=== PATIENT | female | born 1955 | race African-American/Black ===

== ENCOUNTER 2017-07-29 12:59 | Inpatient (IN) | payer MEDICARE, OTHER ==
[~2017-07-29] VITALS: Ht 160 cm; Wt 79.8 kg
[~2017-07-29 12:59] MED LIST: AMBIEN10 M1 ORAL; CARAFATE1 G1 ORAL; DEPAKOTE500 MG PO; DILAUDID4 MG ORAL; FLORANEX GRANU1 EACH PO; GABAPENTIN300 MG ORAL; LAMICTAL25 MG ORAL; LEVOTHYROXINE125 MCG ORAL; METRONIDAZOLE250 MG ORAL; NEXIUM40 MG ORAL; NORCO 5-325 TA1 EACH ORAL; PERCOCET 10-321 EAC1 PO; PROTONIX40 MG ORAL; QUETIAPINE FUM200 MG ORAL; RISPERDAL2 MG ORAL; SEROQUEL100 MG ORAL; SOMA350 MG PO; XANAX2 MG ORAL; ZANTAC150 MG ORAL
[2017-07-29 17:00] VITALS: BP 143/96
[2017-07-29] MEDS ORDERED: Morphine Sulfate 4mg/ml Inj IVP PRN (18:15)
[2017-07-29] MEDS ORDERED: Albuterol/Ipratropium 3ml neb HHN PRN (18:15)
[2017-07-29] MEDS ORDERED: Miralax 17gm pkt ORAL PRN (18:15)
[2017-07-29] MEDS: LORazepam Inj 2mg/ml 1ml IV PRN (20:44)
[2017-07-29] MEDS ORDERED: Heparin 5000 units/ml inj SUBQ SCH (21:00)
[2017-07-29] MEDS: Cefepime HCl 2 GM in D5W 55 ML IV SCH ×2 (21:19→21:21)
[2017-07-29 21:48] LABS: ABG ALLEN TEST POSITIVE; ABG BASE EXCESS 2.4; ABG PCO2 33.7 mmHg (35.0-45.0)
[2017-07-29] MEDS ORDERED: Vancomycin 1 GM in D5W 275 ML IV SCH (23:00)
[2017-07-29] MEDS ORDERED: Pantoprazole Inj IVP SCH (23:00)
[2017-07-29] MEDS ORDERED: Vancomycin 1.5gm/D5W 250ml 250 ML IVPB SCH (23:00)
[2017-07-29] MEDS: HYDROmorphone 4mg tab ORAL SCH (23:47)
[2017-07-30] VITALS: BP 145/88
[2017-07-30 04:00] VITALS: BP 132/78
--- NOTE | 2017-07-30 04:00 | Consultation ---
DATE OF CONSULTATION: 07/29/2017 GASTROENTEROLOGY CONSULTATION CONSULTING PHYSICIAN: Mary Kay Magana M.D. CHIEF COMPLAINT: I was asked to see this patient by Dr. Giovanny Rogers for evaluation of abdominal pain. HISTORY OF PRESENT ILLNESS: The patient is an unfortunate 62-year-old woman, who has had multiple hospitalizations who comes into the hospital with abdominal pain. The patient herself is anxious and hyperventilating and does not provide much details. She apparently presented to [facility] emergency room earlier today with one-day of abdominal pain from home. She was apparently brought in by her daughter who also reports some nausea, vomiting, and diarrhea. The patient was seen in the emergency room at [place] and some lab tests were done, CBC was also done. The patient was then subsequently transferred to [facility] for admission. CT scan was also not available. I explained to the daughter the patient is anxious and stuttering and hyperventilating but she is not able to get any history. PAST MEDICAL HISTORY: History of reflux, which was removed by gastric bypass surgery, history of anastomotic gastrojejunal ulceration. The patient had her last endoscopy in mid April of this year which showed no evidence of residual ulcerations. History of low back pain, history of abdominal hernia, history of thyroid disease, and history of Clostridium difficile colitis. SOCIAL HISTORY: The patient is a smoker. She has three children. FAMILY HISTORY: Noncontributory. REVIEW OF SYSTEMS: Otherwise negative. PHYSICAL EXAMINATION: GENERAL: Debilitated, woman, seen in no distress. HEENT: Normocephalic and atraumatic. Sclerae anicteric. Oropharynx clear. NECK: Supple. CHEST: Coarse breath sounds. CARDIOVASCULAR: Revealed regular rate. ABDOMEN: Soft with good bowel sounds. EXTREMITIES: Revealed no edema. LABORATORY DATA: Noted. ASSESSMENT: This patient presents with abdominal pain in the setting of previous multiple ulcer formations. An endoscopy can be done to rule out recurrence of anastomotic ulcers. Alternatively, she may be tested for a different condition such as Clostridium difficile colitis that interestingly cause pain, although usually with diarrhea. RECOMMENDATIONS: 1. Check CT scan results from [facility]. 2. Check stool for occult blood and Clostridium difficile. 3. We will consider endoscopy later this week to evaluate the upper gastrointestinal tract. Thank you for asking me to participate in the care of this patient. Mary Kay Magana M.D. DR: ROSETTA JOB#: [id number] CC: SHANON
[2017-07-30 04:55] LABS: MEAN CORPUSCULAR HGB CONC 32.3 G/DL (32.0-36.0); MEAN CORPUSCULAR VOLUME 99 FL (80-99); MEAN PLATELET VOLUME 5.6 FL (6.5-10.1); PLATELET COUNT 409 K/UL (150-450); RED BLOOD COUNT 3.33 M/UL (4.20-5.40); RED CELL DISTRIBUTION WIDTH 13.1 % (11.6-14.8)
[2017-07-30 05:17] LABS: ANION GAP 8 mmol/L (5-15); CALCIUM 8.4 MG/DL (8.5-10.1); CARBON DIOXIDE 29 MMOL/L (21-32); CHLORIDE 106 MMOL/L (98-107); CREATININE 0.6 MG/DL (0.55-1.30); GLOMERULAR FILTRATION RATE > 60 mL/min (>60); POTASSIUM 2.8 MMOL/L (3.5-5.1); SODIUM 143 MMOL/L (136-145)
[2017-07-30] MEDS: LORazepam Inj 2mg/ml 1ml IV PRN (05:19)
[2017-07-30] MEDS: HYDROmorphone 4mg tab ORAL SCH ×5 (06:00→23:40)
[2017-07-30] MEDS ORDERED: Levothyroxine 125mcg tab ORAL SCH (06:30)
[2017-07-30] MEDS ORDERED: POTASSIUM CHLORIDE IVPB SCH (07:00)
[2017-07-30] MEDS ORDERED: NS IVPB SCH (07:00)
[2017-07-30 07:24] LABS: ANISOCYTOSIS 1+; BAND NEUTROPHILS % (MANUAL) 0 % (0-8); BASOPHILS % (MANUAL) 0 % (0-2); EOSINOPHILS % (MANUAL) 0 % (0-3); HYPOCHROMASIA 1+; LYMPHOCYTES % (MANUAL) 11 % (20-45); NEUTROPHILS % (MANUAL) 84 % (45-75); PLATELET ESTIMATE ADEQUATE; PLATELET MORPHOLOGY NORMAL; TOTAL CELLS COUNTED 100
[2017-07-30 08:00] VITALS: BP 142/74
[2017-07-30] MEDS ORDERED: LORazepam Inj 2mg/ml 1ml IV PRN ×2 (08:15→12:15)
[2017-07-30] MEDS ORDERED: Potassium Chloride 40 MEQ in Sodium Chloride 500ML 550 ML IVPB ONE ×4 (08:30)
[2017-07-30] MEDS: Cefepime HCl 2 GM in D5W 55 ML IV SCH ×2 (08:50→21:11)
[2017-07-30] MEDS: Pantoprazole Inj IVP SCH ×2 (08:50→21:11)
[2017-07-30] MEDS: Heparin 5000 units/ml inj SUBQ SCH ×2 (08:54→21:09)
[2017-07-30] MEDS ORDERED: Vancomycin 1 GM in D5W 275 ML IVPB SCH (09:00)
[2017-07-30] MEDS: Vancomycin 1gm in D5W 275ml IVPB SCH ×2 (09:37→21:53)
[2017-07-30] MEDS ORDERED: Albuterol/Ipratropium 3ml neb HHN PRN (10:15)
[2017-07-30] MEDS ORDERED: Morphine Sulfate 4mg/ml Inj IVP PRN (10:15)
--- NOTE | 2017-07-30 11:32 | Consultation ---
History of Present Illness General Date patient seen: Jul 29, 2017 Time patient seen: 18:00 Referring physician: Dr. Nunez Reason for Consultation: Dyspnea Present Illness HPI 62 year old female with hx of Psychiatric disorders, depression, GI issues, Gastric bypass and ulcer was taken to [facility] with CC of abdominal pain and shortness of breath. she was diagnosed to have pneumonia and transferred to [facility] for further management. Pt is awake, looks comfortable. Not a very good historian. Allergies: Coded Allergies: No Known Allergies (Unverified , 05/30/15) Medication History Scheduled Acidophilus/Bulgaricus (Floranex Granules Packet), 1 EACH PO Q8H, (Reported) Alprazolam* (Xanax*), 2 MG ORAL tid, (Reported) Gabapentin* (Gabapentin*), 600 MG ORAL Q8H, (Reported) Hydromorphone HCl (Dilaudid), 4 MG ORAL Q6H, (Reported) Lamotrigine* (Lamictal*), 25 MG ORAL bid, (Reported) Levothyroxine Sodium* (Levothyroxine Sodium*), 125 MCG ORAL DAILY, (Reported) Metronidazole* (Flagyl*), 250 MG ORAL EVERY 6 HOURS, (Reported) Pantoprazole* (Protonix*), 40 MG ORAL bid, (Reported) Quetiapine Fumarate* (Seroquel*), 100 MG ORAL tid, (Reported) Quetiapine Fumarate* (Seroquel*), 400 MG ORAL hs, (Reported) Ranitidine Hcl* (Zantac*), 150 MG ORAL DAILY, (Reported) Sucralfate* (Carafate*), 100 MG ORAL FOUR TIMES A DAY, (Reported) Scheduled PRN Zolpidem Tartrate* (Ambien*), 10 MG ORAL HS PRN for Insomnia, (Reported) Patient History Healthcare decision maker N Resuscitation status Full Code Advanced Directive on File Past Medical/Surgical History Past Medical/Surgical History: (1) Depression (2) H/O gastric bypass (3) PUD (peptic ulcer disease) Review of Systems Constitutional: Reports: malaise, weakness Respiratory: Reports: shortness of breath, wheezing Gastrointestinal: Reports: abdominal pain Physical Exam General Appearance: WD/WN Lines, tubes and drains: peripheral HEENT: normocephalic, atraumatic Neck: non-tender, supple Respiratory/Chest: chest wall non-tender, lungs clear Breasts: no masses Cardiovascular/Chest: normal peripheral pulses, normal rate Abdomen: normal bowel sounds, non tender Genitourinary/Rectal: normal genital exam, normal rectal exam Extremities: normal range of motion, non-tender 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 Lymphatic: anterior cervical Last 24 Hour Vital Signs Date Time Temp Pulse Resp B/P (MAP) Pulse Ox O2 Delivery O2 Flow Rate FiO2 07/30/17 08:00 98.2 77 28 142/74 100 Non-Rebreather 10.0 07/30/17 04:00 98.2 81 25 132/78 98 Non-Rebreather 10.0 07/30/17 00:46 97.4 07/30/17 00:00 98.0 98 30 145/88 98 Non-Rebreather 10.0 07/29/17 19:57 96 26 99 Nasal Cannula 3.0 32 07/29/17 19:52 32 07/29/17 19:50 82 24 Nasal Cannula 32 07/29/17 19:50 82 24 98 Nasal Cannula 3.0 32 07/29/17 17:00 97.4 98 24 143/96 91 Nasal Cannula 4.0 Intake and Output 07/30/17 07/31/17 19:00 07:00 Intake Total 288.708 ml Balance 288.708 ml IV Total 288.708 ml Laboratory Tests Test 07/29/17 21:31 07/30/17 03:20 Arterial Blood pH 7.490 (7.350-7.450) Arterial Blood Partial Pressure CO2 33.7 mmHg (35.0-45.0) L Arterial Blood Partial Pressure O2 86.7 mmHg (75.0-100.0) Arterial Blood HCO3 25.4 mmol/L (22.0-26.0) Arterial Blood Oxygen Saturation 96.4 % (92.0-98.0) Arterial Blood Base Excess 2.4 Errol Test Positive White Blood Count 20.0 K/UL (4.8-10.8) H Red Blood Count 3.33 M/UL (4.20-5.40) L Hemoglobin 10.6 G/DL (12.0-16.0) L Hematocrit 32.9 % (37.0-47.0) L Mean Corpuscular Volume 99 FL (80-99) Mean Corpuscular Hemoglobin 32.0 PG (27.0-31.0) H Mean Corpuscular Hemoglobin Concent 32.3 G/DL (32.0-36.0) Red Cell Distribution Width 13.1 % (11.6-14.8) Platelet Count 409 K/UL (150-450) Mean Platelet Volume 5.6 FL (6.5-10.1) L Neutrophils (%) (Auto) % (45.0-75.0) Lymphocytes (%) (Auto) % (20.0-45.0) Monocytes (%) (Auto) % (1.0-10.0) Eosinophils (%) (Auto) % (0.0-3.0) Basophils (%) (Auto) % (0.0-2.0) Differential Total Cells Counted 100 Neutrophils % (Manual) 84 % (45-75) H Lymphocytes % (Manual) 11 % (20-45) L Monocytes % (Manual) 5 % (1-10) Eosinophils % (Manual) 0 % (0-3) Basophils % (Manual) 0 % (0-2) Band Neutrophils 0 % (0-8) Platelet Estimate Adequate Platelet Morphology Normal Hypochromasia 1+ Anisocytosis 1+ Sodium Level 143 MMOL/L (136-145) Potassium Level 2.8 MMOL/L (3.5-5.1) L Chloride Level 106 MMOL/L (98-107) Carbon Dioxide Level 29 MMOL/L (21-32) Anion Gap 8 mmol/L (5-15) Blood Urea Nitrogen 6 mg/dL (7-18) L Creatinine 0.6 MG/DL (0.55-1.30) Estimat Glomerular Filtration Rate > 60 mL/min (>60) Glucose Level 94 MG/DL (74-106) Calcium Level 8.4 MG/DL (8.5-10.1) L Phosphorus Level 3.0 MG/DL (2.5-4.9) Albumin 2.3 G/DL (3.4-5.0) L Height (Feet): 5 Height (Inches): 3.00 Weight (Pounds): 176 Medications Current Medications Medications (Trade) Dose Ordered Sig/Donald Route PRN Reason Start Time Stop Time Status Last Admin Dose Admin Acetaminophen (Tylenol) 650 mg Q4H PRN ORAL FEVER 07/30/17 10:15 08/28/17 18:14 Albuterol/ Ipratropium (Albuterol/ Ipratropium) 3 ml Q4H PRN HHN Shortness of Breath 07/30/17 10:15 08/03/17 18:14 Cefepime HCl 2 gm/ Dextrose 55 ml @ 110 mls/hr EVERY 12 HOURS IV 07/30/17 09:00 08/05/17 20:29 07/30/17 08:50 Dextrose (Dextrose 50%) STAT PRN IV Hypoglycemia 07/30/17 18:15 08/28/17 18:14 Gabapentin (Neurontin) 600 mg Q8HR ORAL 07/30/17 14:00 08/28/17 21:59 Heparin Sodium (Porcine) (Heparin 5000 units/ml) 5,000 units EVERY 12 HOURS SUBQ 07/30/17 09:00 08/28/17 20:59 07/30/17 08:54 Hydromorphone HCl (Dilaudid) 4 mg Q6HR ORAL 07/30/17 12:00 08/05/17 19:29 Levothyroxine Sodium (Synthroid) 125 mcg ACBREAKFAST ORAL 07/31/17 06:30 08/29/17 06:29 Lorazepam (Ativan 2mg/ml 1ml) 2 mg Q2H PRN IV For Anxiety 07/30/17 08:15 08/05/17 18:14 Morphine Sulfate (Morphine Sulfate) 4 mg Q4H PRN IVP Severe Pain (Pain Scale 7-10) 07/30/17 10:15 08/05/17 18:14 Ondansetron HCl (Zofran) 4 mg Q6H PRN IVP Nausea & Vomiting 07/30/17 12:15 08/28/17 18:14 Pantoprazole (Protonix) 40 mg EVERY 12 HOURS IVP 07/30/17 09:00 08/28/17 22:59 07/30/17 08:50 Polyethylene Glycol (Miralax) 17 gm DAILYPRN PRN ORAL Constipation 07/30/17 18:15 08/28/17 18:14 Potassium Chloride 40 meq/ Sodium Chloride 570 ml @ 142.5 mls/ hr ONCE ONCE IVPB 07/30/17 08:30 07/30/17 12:29 07/30/17 10:13 Quetiapine Fumarate (SEROquel) 100 mg TID ORAL 07/30/17 22:00 08/29/17 21:59 Sodium Chloride 1,000 ml @ 50 mls/hr Q20H IV 07/30/17 08:00 08/28/17 07:59 07/30/17 08:01 Vancomycin HCl 1 gm/Dextrose 275 ml @ 183.708 mls/hr Q12HR IVPB 07/30/17 09:00 08/04/17 08:59 07/30/17 09:37 Assessment/Plan Problem List: (1) Pneumonia ICD Codes: J18.9 - Pneumonia, unspecified organism SNOMED: 240245752 (2) Abdominal pain ICD Codes: R10.9 - Unspecified abdominal pain SNOMED: 08272196 (3) Depression ICD Codes: F32.9 - Major depressive disorder, single episode, unspecified SNOMED: 30018247 (4) PUD (peptic ulcer disease) ICD Codes: K27.9 - Peptic ulcer, site unspecified, unspecified as acute or chronic, without hemorrhage or perforation SNOMED: 56772284 (5) H/O gastric bypass ICD Codes: Z98.890 - Other specified postprocedural states SNOMED: 939151736 Assessment/Plan respiratory treatment IV abx check sputum check cultures chest PT psych evaluation GI f/u f/u on WBC TAMMY MALDONADO Jul 30, 2017 11:32
--- NOTE | 2017-07-30 11:38 | Pulmonology Progress Note ---
Assessment/Plan Problems: (1) Pneumonia (2) Abdominal pain (3) Depression (4) PUD (peptic ulcer disease) (5) H/O gastric bypass Assessment/Plan continue abx check cultures ID evaluation check echo f/u BNP gi evaluation Subjective ROS Limited/Unobtainable: No Interval Events: transferred to [facility] becaue of dyspnea last night Allergies: Coded Allergies: No Known Allergies (Unverified , 05/30/15) Objective Last 24 Hour Vital Signs Date Time Temp Pulse Resp B/P (MAP) Pulse Ox O2 Delivery O2 Flow Rate FiO2 07/30/17 08:00 98.2 77 28 142/74 100 Non-Rebreather 10.0 07/30/17 04:00 98.2 81 25 132/78 98 Non-Rebreather 10.0 07/30/17 00:46 97.4 07/30/17 00:00 98.0 98 30 145/88 98 Non-Rebreather 10.0 07/29/17 19:57 96 26 99 Nasal Cannula 3.0 32 07/29/17 19:52 32 07/29/17 19:50 82 24 Nasal Cannula 32 07/29/17 19:50 82 24 98 Nasal Cannula 3.0 32 07/29/17 17:00 97.4 98 24 143/96 91 Nasal Cannula 4.0 Intake and Output 07/30/17 07/31/17 19:00 07:00 Intake Total 288.708 ml Balance 288.708 ml IV Total 288.708 ml General Appearance: WD/WN HEENT: normocephalic, anicteric Respiratory/Chest: chest wall non-tender, lungs clear Breasts: no masses Cardiovascular: normal peripheral pulses, normal rate Abdomen: normal bowel sounds, soft, non tender, no organomegaly Genitourinary: normal external genitalia Extremities: no cyanosis 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, no motor/sensory deficits Laboratory Tests 07/29/17 21:31: Arterial Blood pH 7.490H, Arterial Blood Partial Pressure CO2 33.7L, Arterial Blood Partial Pressure O2 86.7, Arterial Blood HCO3 25.4, Arterial Blood Oxygen Saturation 96.4, Arterial Blood Base Excess 2.4, Errol Test Positive 07/30/17 03:20: White Blood Count 20.0H, Red Blood Count 3.33L, Hemoglobin 10.6L, Hematocrit 32.9L, Mean Corpuscular Volume 99, Mean Corpuscular Hemoglobin 32.0H, Mean Corpuscular Hemoglobin Concent 32.3, Red Cell Distribution Width 13.1, Platelet Count 409, Mean Platelet Volume 5.6L, Neutrophils (%) (Auto) , Lymphocytes (%) ( Auto) , Monocytes (%) (Auto) , Eosinophils (%) (Auto) , Basophils (%) (Auto) , Differential Total Cells Counted 100, Neutrophils % (Manual) 84H, Lymphocytes % (Manual) 11L, Monocytes % (Manual) 5, Eosinophils % (Manual) 0, Basophils % ( Manual) 0, Band Neutrophils 0, Platelet Estimate Adequate, Platelet Morphology Normal, Hypochromasia 1+, Anisocytosis 1+, Sodium Level 143, Potassium Level 2.8L, Chloride Level 106, Carbon Dioxide Level 29, Anion Gap 8, Blood Urea Nitrogen 6L, Creatinine 0.6, Estimat Glomerular Filtration Rate > 60, Glucose Level 94, Calcium Level 8.4L, Phosphorus Level 3.0, Albumin 2.3L Current Medications Medications (Trade) Dose Ordered Sig/Donald Route PRN Reason Start Time Stop Time Status Last Admin Dose Admin Acetaminophen (Tylenol) 650 mg Q4H PRN ORAL FEVER 07/30/17 10:15 08/28/17 18:14 Albuterol/ Ipratropium (Albuterol/ Ipratropium) 3 ml Q4H PRN HHN Shortness of Breath 07/30/17 10:15 08/03/17 18:14 Cefepime HCl 2 gm/ Dextrose 55 ml @ 110 mls/hr EVERY 12 HOURS IV 07/30/17 09:00 08/05/17 20:29 07/30/17 08:50 Dextrose (Dextrose 50%) STAT PRN IV Hypoglycemia 07/30/17 18:15 08/28/17 18:14 Gabapentin (Neurontin) 600 mg Q8HR ORAL 07/30/17 14:00 08/28/17 21:59 Heparin Sodium (Porcine) (Heparin 5000 units/ml) 5,000 units EVERY 12 HOURS SUBQ 07/30/17 09:00 08/28/17 20:59 07/30/17 08:54 Hydromorphone HCl (Dilaudid) 4 mg Q6HR ORAL 07/30/17 12:00 08/05/17 19:29 Levothyroxine Sodium (Synthroid) 125 mcg ACBREAKFAST ORAL 07/31/17 06:30 08/29/17 06:29 Lorazepam (Ativan 2mg/ml 1ml) 2 mg Q2H PRN IV For Anxiety 07/30/17 08:15 08/05/17 18:14 Morphine Sulfate (Morphine Sulfate) 4 mg Q4H PRN IVP Severe Pain (Pain Scale 7-10) 07/30/17 10:15 08/05/17 18:14 Ondansetron HCl (Zofran) 4 mg Q6H PRN IVP Nausea & Vomiting 07/30/17 12:15 08/28/17 18:14 Pantoprazole (Protonix) 40 mg EVERY 12 HOURS IVP 07/30/17 09:00 08/28/17 22:59 07/30/17 08:50 Polyethylene Glycol (Miralax) 17 gm DAILYPRN PRN ORAL Constipation 07/30/17 18:15 08/28/17 18:14 Potassium Chloride 40 meq/ Sodium Chloride 570 ml @ 142.5 mls/ hr ONCE ONCE IVPB 07/30/17 08:30 07/30/17 12:29 07/30/17 10:13 Quetiapine Fumarate (SEROquel) 100 mg TID ORAL 07/30/17 22:00 08/29/17 21:59 Sodium Chloride 1,000 ml @ 50 mls/hr Q20H IV 07/30/17 08:00 08/28/17 07:59 07/30/17 08:01 Vancomycin HCl 1 gm/Dextrose 275 ml @ 183.708 mls/hr Q12HR IVPB 07/30/17 09:00 08/04/17 08:59 07/30/17 09:37 TAMMY MALDONADO Jul 30, 2017 11:38
--- NOTE | 2017-07-30 11:41 | Diagnostic Imaging Report ---
Indication: SOB Technique: One view of the chest Comparison: none Findings: There is bilateral diffuse interstitial and alveolar infiltrates versus edema. Pleural spaces are clear. Heart size is upper limits of normal. Impression: Bilateral diffuse infiltrates versus edema-correlate with clinical findings. Findings discussed by phone with Dr. Velasco at the time of interpretation
[2017-07-30 12:00] VITALS: BP 148/85
[2017-07-30] MEDS: ALPRAZolam 0.5mg tab ORAL SCH ×2 (12:35→18:50)
[2017-07-30 16:00] VITALS: BP 140/99
--- NOTE | 2017-07-30 16:24 | Cardiology Report ---
APPROVED REPORT EXAM: Two-dimensional and M-mode echocardiogram with Doppler and color Doppler. INDICATION Left ventricular function M-Mode DIMENSIONS IVSd0.9 (0.7-1.1cm)Left Atrium (MM)3.5 (1.6-4.0cm) LVDd4.3 (3.5-5.6cm)Aortic Root3.1 (2.0-3.7cm) PWd0.9 (0.7-1.1cm)Aortic Cusp Exc.2.0 (1.5-2.0cm) LVDs2.2 (2.5-4.0cm) PWs1.2 cm Normal left ventricular chamber size, systolic function and wall motion. Left ventricular ejection fraction estimated to be 60-65%. No evidence of left ventricular hypertrophy. No evidence of pericardial or pleural effusion. Mild bi-atrial enlargement by 2D. Focal aortic valve sclerosis with adequate cusp excursion. Thickened mitral valve leaflets with normal excursion. Mild mitral annulus and aortic root calcification. Pulmonic valve not well visualized. Normal tricuspid valve structure. IVC dilated at 2.4cm with minimal collapse with respiration. A color flow and spectral Doppler study was performed and revealed: No aortic regurgitation. No mitral regurgitation. Mitral diastolic velocities suggest reduced left ventricular relaxation c/w diastolic dysfunction grade 1. Trace tricuspid regurgitation. Tricuspid systolic velocities suggests peak right ventricular systolic pressure of 44mmHg Consistent with mild pulmonary hypertension.
[2017-07-30] MEDS ORDERED: NS 500ML ONE (16:30)
[2017-07-30] MEDS ORDERED: Tubing IV Secondary IV ONE (16:30)
[2017-07-30] MEDS ORDERED: Miralax 17gm pkt ORAL PRN (18:15)
--- NOTE | 2017-07-30 19:47 | Cardiology Progress Note ---
Assessment/Plan Assessment/Plan exam finding not typoical of heart failure systolic fucntion norml on echo agree with [facility] will check torp and ekg as well contienu abx [id number] Objective Last 24 Hour Vital Signs Date Time Temp Pulse Resp B/P (MAP) Pulse Ox O2 Delivery O2 Flow Rate FiO2 07/30/17 16:00 99.9 86 26 140/99 92 Non-Rebreather 10.0 07/30/17 16:00 95 07/30/17 12:00 99.7 78 28 148/85 97 Non-Rebreather 10.0 07/30/17 12:00 82 07/30/17 08:00 64 07/30/17 08:00 98.2 77 28 142/74 100 Non-Rebreather 10.0 07/30/17 07:30 75 22 Non-Rebreather 15.0 100 07/30/17 04:00 98.2 81 25 132/78 98 Non-Rebreather 10.0 07/30/17 00:46 97.4 07/30/17 00:00 98.0 98 30 145/88 98 Non-Rebreather 10.0 07/29/17 19:57 96 26 99 Nasal Cannula 3.0 32 07/29/17 19:52 32 07/29/17 19:50 82 24 Nasal Cannula 32 07/29/17 19:50 82 24 98 Nasal Cannula 3.0 32 Intake and Output 07/30/17 07/31/17 19:00 07:00 Intake Total 1550.000 ml Balance 1550.000 ml Intake Oral 200 ml IV Total 1350.000 ml # Voids 3 # Bowel Movements 1 Laboratory Tests Test 07/29/17 21:31 07/30/17 03:20 Arterial Blood pH 7.490 (7.350-7.450) Arterial Blood Partial Pressure CO2 33.7 mmHg (35.0-45.0) L Arterial Blood Partial Pressure O2 86.7 mmHg (75.0-100.0) Arterial Blood HCO3 25.4 mmol/L (22.0-26.0) Arterial Blood Oxygen Saturation 96.4 % (92.0-98.0) Arterial Blood Base Excess 2.4 Errol Test Positive White Blood Count 20.0 K/UL (4.8-10.8) H Red Blood Count 3.33 M/UL (4.20-5.40) L Hemoglobin 10.6 G/DL (12.0-16.0) L Hematocrit 32.9 % (37.0-47.0) L Mean Corpuscular Volume 99 FL (80-99) Mean Corpuscular Hemoglobin 32.0 PG (27.0-31.0) H Mean Corpuscular Hemoglobin Concent 32.3 G/DL (32.0-36.0) Red Cell Distribution Width 13.1 % (11.6-14.8) Platelet Count 409 K/UL (150-450) Mean Platelet Volume 5.6 FL (6.5-10.1) L Neutrophils (%) (Auto) % (45.0-75.0) Lymphocytes (%) (Auto) % (20.0-45.0) Monocytes (%) (Auto) % (1.0-10.0) Eosinophils (%) (Auto) % (0.0-3.0) Basophils (%) (Auto) % (0.0-2.0) Differential Total Cells Counted 100 Neutrophils % (Manual) 84 % (45-75) H Lymphocytes % (Manual) 11 % (20-45) L Monocytes % (Manual) 5 % (1-10) Eosinophils % (Manual) 0 % (0-3) Basophils % (Manual) 0 % (0-2) Band Neutrophils 0 % (0-8) Platelet Estimate Adequate Platelet Morphology Normal Hypochromasia 1+ Anisocytosis 1+ Sodium Level 143 MMOL/L (136-145) Potassium Level 2.8 MMOL/L (3.5-5.1) L Chloride Level 106 MMOL/L (98-107) Carbon Dioxide Level 29 MMOL/L (21-32) Anion Gap 8 mmol/L (5-15) Blood Urea Nitrogen 6 mg/dL (7-18) L Creatinine 0.6 MG/DL (0.55-1.30) Estimat Glomerular Filtration Rate > 60 mL/min (>60) Glucose Level 94 MG/DL (74-106) Calcium Level 8.4 MG/DL (8.5-10.1) L Phosphorus Level 3.0 MG/DL (2.5-4.9) Albumin 2.3 G/DL (3.4-5.0) L YAW WALLACE Jul 30, 2017 19:47
[2017-07-30 20:00] VITALS: BP 131/69
--- NOTE | 2017-07-30 23:00 | Consultation ---
DATE OF CONSULTATION: HISTORY OF PRESENT ILLNESS: The patient is a 62-year-old female with a history of multiple medical problems, the patient has a history of gastric bypass surgery, anastomotic gastrojejunal ulceration, GERD, thyroid disease, who has been admitted for medical stabilization. The patient has been presenting with agitation and tends to come out of bed and was falling. She has a sitter in the house. During evaluation, the patient was asleep, difficult to arouse, and is a poor historian. However, she is alert and oriented x4. She denied any psychotic, manic, or depressive symptoms. According to the sitter, she is most of the time more agitated. PAST PSYCHIATRIC HISTORY: Significant for depression. She is being treated with Seroquel. No suicide attempt. No psychiatric hospitalizations. PAST MEDICAL HISTORY: History of reflux, gastric bypass, thyroid disease, and back pain. ALLERGIES: No known drug allergies. SUBSTANCE ABUSE HISTORY: No history of illicit drug use or alcohol. The patient is a smoker. SOCIAL HISTORY: She has three children, unemployed. MENTAL STATUS EXAMINATION: The patient is alert and oriented to time, self, place, and situation she is in. Mood is depressed. Affect is constricted. Congruent mood. Thought process is concrete. Thought content, no suicidal or homicidal ideation. Cognition is impaired. Insight and judgment is fair. ASSESSMENT: [place] I Major depressive disorder. [place] II Deferred. [place] III As above. [place] IV Low. [place] V Global assessment of functioning is 50. PLAN: 1. Restart the patient back on alprazolam 0.5 mg t.i.d. The patient is taking 2 mg t.i.d. at home. She is on Ativan p.r.n. 2. We will also continue the Seroquel. 3. We will continue to follow and readjust the medications. Shweta Cervantes M.D. DR: Reji JOB#: [id number] CC:
--- NOTE | 2017-07-30 23:20 | General Progress Note ---
Assessment/Plan Assessment/Plan Assessment - abdominal pain - ? etiology - diarrhea (Negative C Diff 04/18/17 at [facility]) - Leukocytosis - s/p RAVIN 2011 - h/o anastamotic GJ ulcer - chronic abd pain complaints Recommendations - continue Vanco and Cefepime, and add flagyl - check stool for C Diff and culture - contact isolation - Keep NPO - EGD in am - PPI Subjective Allergies: Coded Allergies: No Known Allergies (Unverified , 05/30/15) Subjective above noted currently in [facility] appeared comfortable on my arrival moaning during interview, apparently from abd pain not able to give further details (duration, onset, etc) poor history from patient staff reporter unable to open the CD ROM from [facility] to retrieve medical information pt on abx, WBC elevated (+) diarrhea called [facility] this mona and spoke with ER MD: CT:b/l pulmonary infiltrates, thickened Transverse and descending colon, 1.4 cm lesion in liver-possible cyst Objective Last 24 Hour Vital Signs Date Time Temp Pulse Resp B/P (MAP) Pulse Ox O2 Delivery O2 Flow Rate FiO2 07/30/17 20:00 93 07/30/17 20:00 98.8 85 24 131/69 98 Venturi Mask 10.0 45 07/30/17 19:50 98.3 07/30/17 19:45 88 18 Venturi Mask 10.0 45 07/30/17 19:45 Venturi Mask 10.0 45 07/30/17 19:45 97 Venturi Mask 10.0 45 07/30/17 16:00 99.9 86 26 140/99 92 Non-Rebreather 10.0 07/30/17 16:00 95 07/30/17 12:00 99.7 78 28 148/85 97 Non-Rebreather 10.0 07/30/17 12:00 82 07/30/17 08:00 64 07/30/17 08:00 98.2 77 28 142/74 100 Non-Rebreather 10.0 07/30/17 07:30 75 22 Non-Rebreather 15.0 100 07/30/17 04:00 98.2 81 25 132/78 98 Non-Rebreather 10.0 07/30/17 00:46 97.4 07/30/17 00:00 98.0 98 30 145/88 98 Non-Rebreather 10.0 Intake and Output 07/30/17 07/31/17 19:00 07:00 Intake Total 1550.000 ml 592.708 ml Balance 1550.000 ml 592.708 ml Intake Oral 200 ml 354 ml IV Total 1350.000 ml 238.708 ml # Voids 3 # Bowel Movements 1 Laboratory Tests 07/30/17 03:20: White Blood Count 20.0H, Red Blood Count 3.33L, Hemoglobin 10.6L, Hematocrit 32.9L, Mean Corpuscular Volume 99, Mean Corpuscular Hemoglobin 32.0H, Mean Corpuscular Hemoglobin Concent 32.3, Red Cell Distribution Width 13.1, Platelet Count 409, Mean Platelet Volume 5.6L, Neutrophils (%) (Auto) , Lymphocytes (%) ( Auto) , Monocytes (%) (Auto) , Eosinophils (%) (Auto) , Basophils (%) (Auto) , Differential Total Cells Counted 100, Neutrophils % (Manual) 84H, Lymphocytes % (Manual) 11L, Monocytes % (Manual) 5, Eosinophils % (Manual) 0, Basophils % ( Manual) 0, Band Neutrophils 0, Platelet Estimate Adequate, Platelet Morphology Normal, Hypochromasia 1+, Anisocytosis 1+, Sodium Level 143, Potassium Level 2.8L, Chloride Level 106, Carbon Dioxide Level 29, Anion Gap 8, Blood Urea Nitrogen 6L, Creatinine 0.6, Estimat Glomerular Filtration Rate > 60, Glucose Level 94, Calcium Level 8.4L, Phosphorus Level 3.0, Albumin 2.3L 07/30/17 20:33: Troponin I 0.006, Pro-B-Type Natriuretic Peptide 4977H Height (Feet): 5 Height (Inches): 3.00 Weight (Pounds): 176 Objective Elderly AA woman NCAT supple coarse BS RR abd soft and flat, but mild diffuse TTP during exam (patient moaning during exam ) no edema responsive and aware of my name, yet not interactive to give history JOSE CHAPARRO Jul 30, 2017 23:19
[2017-07-31] VITALS (12 sets, daily range): BP systolic 120–156; BP diastolic 64–86
--- NOTE | 2017-07-31 00:30 | Consultation ---
DATE OF CONSULTATION: 07/30/2017 CARDIOLOGY CONSULTATION CONSULTING PHYSICIAN: Camacho Putnam M.D. REFERRING PHYSICIAN: Duncan Velasco M.D. HISTORY OF PRESENT ILLNESS: This is a middle-aged female, who was presented with direct transfer from [facility]. This consultation was requested by Dr. Velasco for possibility of heart failure as a cause of her shortness of breath. The patient indicates that she has had some abdominal pain and that is the reason why she was transferred to the hospital. She does not have any chest pain and does not have any shortness of breath. No palpitations. She uses 6 pillows because otherwise she cannot fall asleep especially because of shortness of breath. No heart pounding or palpitations and occasionally gets dizzy or lightheaded. PAST MEDICAL HISTORY: She denies any diabetes, high blood pressure, high cholesterol, heart attack, cancer, stroke, hepatitis, tuberculosis, asthma, or emphysema. She does have history of ulcer disease. No kidney or liver problems. No thyroid problems. No anemia or arthritis otherwise known by the patient, HIV, or any heart problems. The chart indicates that she has history of gastric bypass surgery as well as depression as well as peptic ulcer disease. ALLERGIES: She is not allergic to any medications. SOCIAL HISTORY: She smokes. Denies any drug or alcohol use. PHYSICAL EXAMINATION: GENERAL: Shows to be a middle-aged female, in no respiratory distress. She is awake and responsive, although she has her eyes closed most of the time. VITAL SIGNS: Temperature is 99.9 degrees, blood pressure 140/99 with heart rate of 86, and respirations . LUNGS: Appear to be clear on the right side. There are some crackles on the left side. CARDIAC: Regular rhythm. No heaves or thrills noted. ABDOMEN: Soft. There is some tenderness to deep palpation. No guarding. No rigidity. EXTREMITIES: There is no edema. No clubbing or cyanosis. NEUROLOGICAL: She is awake, alert, and responsive. LABORATORY AND DIAGNOSTIC VALUES: An echocardiogram shows ejection fraction of 60% to 65%, mild diastolic relaxation abnormalities, no significant valvular pathology, PA pressure of 44. Her telemetry shows normal sinus rhythm. EKG really not available for review and her other laboratories. A chest x-ray performed shows bilateral diffuse infiltrates versus edema. Her venous duplex study of the lower extremities, patent veins bilaterally. Blood test, white count 20, hemoglobin 10.6, and platelet count of 409,000. PH 7.49, pCO2 of 34, pO2 of 86, bicarbonate of 25, and 96% saturation. Sodium 142, potassium , chloride 106, bicarbonate 29, BUN 6, creatinine 0.6, and glucose of 94. ASSESSMENT: 1. Bilateral pulmonary infiltrates. 2. Abdominal pain. 3. History of peptic ulcer disease. PLAN: Dr. Velasco, this patient was seen in cardiac consultation. I agree with natriuretic peptide to be performed. Examination of her lungs showed nontypical of heart failure and I wonder if other etiology needs to be also looked into. Her echocardiogram seems to be normal. Her diastolic dysfunction is mildly abnormal, but should not cause this degree of infiltration in the lungs. We will first await the results of her BNP. Camacho Putnam M.D. DR: RANDAL JOB#: [id number] CC:
[2017-07-31 05:01] LABS: BASOPHILS % (AUTO) 0.5 % (0.0-2.0); EOSINOPHILS % (AUTO) 0.8 % (0.0-3.0); LYMPHOCYTES % (AUTO) 16.3 % (20.0-45.0); MEAN CORPUSCULAR HEMOGLOBIN 31.5 PG (27.0-31.0); MEAN CORPUSCULAR VOLUME 99 FL (80-99); MEAN PLATELET VOLUME 5.6 FL (6.5-10.1); MONOCYTES % (AUTO) 6.8 % (1.0-10.0); NEUTROPHILS % (AUTO) 75.6 % (45.0-75.0); PLATELET COUNT 380 K/UL (150-450); RED BLOOD COUNT 3.22 M/UL (4.20-5.40); RED CELL DISTRIBUTION WIDTH 12.9 % (11.6-14.8); WHITE BLOOD COUNT 13.6 K/UL (4.8-10.8)
[2017-07-31 05:39] LABS: ALANINE AMINOTRANSFERASE 13 U/L (12-78); ALBUMIN/GLOBULIN RATIO 0.5 (1.0-2.7); ANION GAP 7 mmol/L (5-15); ASPARTATE AMINO TRANSFERASE 14 U/L (15-37); CALCIUM 8.2 MG/DL (8.5-10.1); CARBON DIOXIDE 27 MMOL/L (21-32); CHLORIDE 110 MMOL/L (98-107); CREATININE 0.6 MG/DL (0.55-1.30); GLOMERULAR FILTRATION RATE > 60 mL/min (>60); MAGNESIUM 1.9 MG/DL (1.8-2.4); POTASSIUM 2.9 MMOL/L (3.5-5.1); SODIUM 144 MMOL/L (136-145); TOTAL PROTEIN 5.6 G/DL (6.4-8.2)
[2017-07-31] MEDS: Levothyroxine 125mcg tab ORAL SCH (05:42)
[2017-07-31] MEDS: HYDROmorphone 4mg tab ORAL SCH ×3 (05:43→18:13)
--- NOTE | 2017-07-31 08:58 | Anethesia Preoperative Eval ---
Anesthesia Pre-op PMH/ROS General Date of Evaluation: Jul 31, 2017 Time of Evaluation: 08:54 Anesthesiologist: crispin ASA Score: ASA 3 Mallampati Score Class I : Soft palate, uvula, fauces, pillars visible Class II: Soft palate, uvula, fauces visible Class III: Soft palate, base of uvula visible Class IV: Only hard plate visible Mallampati Classification: Class II Surgeon: elder Diagnosis: gastroenteritis Surgical Procedure: egd Anesthesia History: none Social History: smoking - nonsmoker Family History: no anesthesia problems Allergies: Coded Allergies: MORPHINE (Verified Allergy, Unknown, 07/31/17) Per patient statement, she is allergic to morphine. Medications: see eMAR Past Medical History Cardiovascular: Reports: HTN Pulmonary: Reports: other - pneumonia Gastrointestinal/Genitourinary: Reports: other - pud, hx/o gastric bypass Neurologic/Psychiatric: Reports: depression/anxiety Anesthesia Pre-op Phys. Exam Physician Exam Last Vital Signs Date Time Temp Pulse Resp B/P (MAP) Pulse Ox O2 Delivery O2 Flow Rate FiO2 07/31/17 08:00 97.9 62 18 145/78 96 Venturi Mask 45 07/31/17 00:00 10.0 Constitutional: NAD Neurologic: CN 2-12 intact Cardiovascular: RRR Respiratory: CTA, other - venturi mask Gastrointestinal: S/NT/ND Airway Exam Mallampati Score: Class II MO: full Neck: supple TMD: 2fb ROM: full Teeth: missing Anesthesia Pre-op A/P Labs Hematology Test 07/31/17 04:35 White Blood Count 13.6 K/UL (4.8-10.8) H Red Blood Count 3.22 M/UL (4.20-5.40) L Hemoglobin 10.1 G/DL (12.0-16.0) L Hematocrit 31.7 % (37.0-47.0) L Mean Corpuscular Volume 99 FL (80-99) Mean Corpuscular Hemoglobin 31.5 PG (27.0-31.0) H Mean Corpuscular Hemoglobin Concent 32.0 G/DL (32.0-36.0) Red Cell Distribution Width 12.9 % (11.6-14.8) Platelet Count 380 K/UL (150-450) Mean Platelet Volume 5.6 FL (6.5-10.1) L Neutrophils (%) (Auto) 75.6 % (45.0-75.0) H Lymphocytes (%) (Auto) 16.3 % (20.0-45.0) L Monocytes (%) (Auto) 6.8 % (1.0-10.0) Eosinophils (%) (Auto) 0.8 % (0.0-3.0) Basophils (%) (Auto) 0.5 % (0.0-2.0) Chemistry Test 07/30/17 20:33 07/31/17 04:35 Troponin I 0.006 ng/mL (0.000-0.056) 0.006 ng/mL (0.000-0.056) Pro-B-Type Natriuretic Peptide 4977 pg/mL (0-125) H Sodium Level 144 MMOL/L (136-145) Potassium Level 2.9 MMOL/L (3.5-5.1) L Chloride Level 110 MMOL/L (98-107) H Carbon Dioxide Level 27 MMOL/L (21-32) Anion Gap 7 mmol/L (5-15) Blood Urea Nitrogen 4 mg/dL (7-18) L Creatinine 0.6 MG/DL (0.55-1.30) Estimat Glomerular Filtration Rate > 60 mL/min (>60) Glucose Level 97 MG/DL (74-106) Lactic Acid Level 0.60 mmol/L (0.66-2.22) L Calcium Level 8.2 MG/DL (8.5-10.1) L Magnesium Level 1.9 MG/DL (1.8-2.4) Total Bilirubin 0.6 MG/DL (0.2-1.0) Aspartate Amino Transf (AST/SGOT) 14 U/L (15-37) L Alanine Aminotransferase (ALT/SGPT) 13 U/L (12-78) Alkaline Phosphatase 98 U/L (46-116) Total Protein 5.6 G/DL (6.4-8.2) L Albumin 1.8 G/DL (3.4-5.0) L Globulin 3.8 g/dL Albumin/Globulin Ratio 0.5 (1.0-2.7) L Lipase 162 U/L (73-393) Risk Assessment & Plan Assessment: asa3 Plan: mac Status Change Before Surgery: No Pre-Antibiotics Drug: na WYNNJONES,LYLY Jul 31, 2017 08:58
[2017-07-31] MEDS: Heparin 5000 units/ml inj SUBQ SCH ×2 (09:00→22:34)
[2017-07-31] MEDS: ALPRAZolam 0.5mg tab ORAL SCH ×3 (09:00→18:13)
[2017-07-31] MEDS: Pantoprazole Inj IVP SCH ×2 (09:16→22:32)
[2017-07-31] MEDS: Cefepime HCl 2 GM in D5W 55 ML IV SCH ×2 (09:22→22:33)
--- NOTE | 2017-07-31 09:44 | Consultation ---
History of Present Illness General Date patient seen: Jul 31, 2017 Time patient seen: 09:42 Referring physician: Dr. Nunez Reason for Consultation: Dyspnea Present Illness HPI 62 Y/o F with hx of gastric bypass with hx of anastomosis ulceration, chronic low back pain, thyroid disease, Cdiff colitis, GERD MDD is transferred from [facility] on 07/30 for SOB due to CHF. +orthopnea, abd pain. At [place] also diagnosed with PNA. Per daughter report, patient was having some nausea, vomiting and diarrhea. Denies CP, palpitations, lightheadedness, Afebrile, initialy leukocytosis up to 20, now down to 13. CXR with edema vs infiltrates. Started on IV Vanco, Cefepime and Flagyl. Allergies: Coded Allergies: MORPHINE (Verified Allergy, Unknown, 07/31/17) Per patient statement, she is allergic to morphine. Medication History Scheduled Acidophilus/Bulgaricus (Floranex Granules Packet), 1 EACH PO Q8H, (Reported) Alprazolam* (Xanax*), 2 MG ORAL tid, (Reported) Gabapentin* (Gabapentin*), 600 MG ORAL Q8H, (Reported) Hydromorphone HCl (Dilaudid), 4 MG ORAL Q6H, (Reported) Lamotrigine* (Lamictal*), 25 MG ORAL bid, (Reported) Levothyroxine Sodium* (Levothyroxine Sodium*), 125 MCG ORAL DAILY, (Reported) Metronidazole* (Flagyl*), 250 MG ORAL EVERY 6 HOURS, (Reported) Pantoprazole* (Protonix*), 40 MG ORAL bid, (Reported) Quetiapine Fumarate* (Seroquel*), 100 MG ORAL tid, (Reported) Quetiapine Fumarate* (Seroquel*), 400 MG ORAL hs, (Reported) Ranitidine Hcl* (Zantac*), 150 MG ORAL DAILY, (Reported) Sucralfate* (Carafate*), 100 MG ORAL FOUR TIMES A DAY, (Reported) Scheduled PRN Zolpidem Tartrate* (Ambien*), 10 MG ORAL HS PRN for Insomnia, (Reported) Patient History Healthcare decision maker N Resuscitation status Full Code Advanced Directive on File Patient History Narrative Pmhx as above SHx: She smokes. Denies any drug or alcohol use. Fhx non contributory Review of Systems All Other Systems: negative except mentioned in HPI Physical Exam Physical Exam Narrative PHYSICAL EXAMINATION: GENERAL: Shows to be a middle-aged female, in no respiratory distress. She is awake and responsive LUNGS: Appear to be clear on the right side. There are some crackles on the left side. CARDIAC: Regular rhythm. No heaves or thrills noted. ABDOMEN: Soft. There is some tenderness to deep palpation. No guarding. No rigidity. EXTREMITIES: There is no edema. No clubbing or cyanosis. NEUROLOGICAL: She is awake, alert, and responsive. Last 24 Hour Vital Signs Date Time Temp Pulse Resp B/P (MAP) Pulse Ox O2 Delivery O2 Flow Rate FiO2 07/31/17 08:00 97.9 62 18 145/78 96 Venturi Mask 45 07/31/17 04:00 79 07/31/17 04:00 99.7 80 24 129/75 94 Venturi Mask 45 07/31/17 00:00 87 07/31/17 00:00 99.0 86 24 136/74 93 Venturi Mask 10.0 45 07/30/17 20:00 93 07/30/17 20:00 98.8 85 24 131/69 98 Venturi Mask 10.0 45 07/30/17 19:50 98.3 07/30/17 19:45 88 18 Venturi Mask 10.0 45 07/30/17 19:45 Venturi Mask 10.0 45 07/30/17 19:45 97 Venturi Mask 10.0 45 07/30/17 16:00 99.9 86 26 140/99 92 Non-Rebreather 10.0 07/30/17 16:00 95 07/30/17 12:00 99.7 78 28 148/85 97 Non-Rebreather 10.0 07/30/17 12:00 82 Laboratory Tests Test 07/30/17 20:33 07/31/17 04:35 07/31/17 08:15 Troponin I 0.006 ng/mL (0.000-0.056) 0.006 ng/mL (0.000-0.056) Pro-B-Type Natriuretic Peptide 4977 pg/mL (0-125) H White Blood Count 13.6 K/UL (4.8-10.8) H Red Blood Count 3.22 M/UL (4.20-5.40) L Hemoglobin 10.1 G/DL (12.0-16.0) L Hematocrit 31.7 % (37.0-47.0) L Mean Corpuscular Volume 99 FL (80-99) Mean Corpuscular Hemoglobin 31.5 PG (27.0-31.0) H Mean Corpuscular Hemoglobin Concent 32.0 G/DL (32.0-36.0) Red Cell Distribution Width 12.9 % (11.6-14.8) Platelet Count 380 K/UL (150-450) Mean Platelet Volume 5.6 FL (6.5-10.1) L Neutrophils (%) (Auto) 75.6 % (45.0-75.0) H Lymphocytes (%) (Auto) 16.3 % (20.0-45.0) L Monocytes (%) (Auto) 6.8 % (1.0-10.0) Eosinophils (%) (Auto) 0.8 % (0.0-3.0) Basophils (%) (Auto) 0.5 % (0.0-2.0) Sodium Level 144 MMOL/L (136-145) Potassium Level 2.9 MMOL/L (3.5-5.1) L Chloride Level 110 MMOL/L (98-107) H Carbon Dioxide Level 27 MMOL/L (21-32) Anion Gap 7 mmol/L (5-15) Blood Urea Nitrogen 4 mg/dL (7-18) L Creatinine 0.6 MG/DL (0.55-1.30) Estimat Glomerular Filtration Rate > 60 mL/min (>60) Glucose Level 97 MG/DL (74-106) Lactic Acid Level 0.60 mmol/L (0.66-2.22) L Calcium Level 8.2 MG/DL (8.5-10.1) L Magnesium Level 1.9 MG/DL (1.8-2.4) Total Bilirubin 0.6 MG/DL (0.2-1.0) Aspartate Amino Transf (AST/SGOT) 14 U/L (15-37) L Alanine Aminotransferase (ALT/SGPT) 13 U/L (12-78) Alkaline Phosphatase 98 U/L (46-116) Total Protein 5.6 G/DL (6.4-8.2) L Albumin 1.8 G/DL (3.4-5.0) L Globulin 3.8 g/dL Albumin/Globulin Ratio 0.5 (1.0-2.7) L Lipase 162 U/L (73-393) Vancomycin Level Trough Pending Height (Feet): 5 Height (Inches): 3.00 Weight (Pounds): 176 Medications Current Medications Medications (Trade) Dose Ordered Sig/Donald Route PRN Reason Start Time Stop Time Status Last Admin Dose Admin Acetaminophen (Tylenol) 650 mg Q4H PRN ORAL FEVER 07/30/17 10:15 08/28/17 18:14 07/30/17 18:51 Albuterol/ Ipratropium (Albuterol/ Ipratropium) 3 ml Q4H PRN HHN Shortness of Breath 07/30/17 10:15 08/03/17 18:14 Alprazolam (Xanax) 0.5 mg THREE TIMES A DAY ORAL 07/30/17 13:00 08/06/17 12:59 07/30/17 18:50 Cefepime HCl 2 gm/ Dextrose 55 ml @ 110 mls/hr EVERY 12 HOURS IV 07/30/17 09:00 08/05/17 20:29 07/31/17 09:22 Dextrose (Dextrose 50%) STAT PRN IV Hypoglycemia 07/30/17 18:15 08/28/17 18:14 Gabapentin (Neurontin) 600 mg Q8HR ORAL 07/30/17 14:00 08/28/17 21:59 07/31/17 05:42 Heparin Sodium (Porcine) (Heparin 5000 units/ml) 5,000 units EVERY 12 HOURS SUBQ 07/30/17 09:00 08/28/17 20:59 07/30/17 21:09 Hydromorphone HCl (Dilaudid) 4 mg Q6HR ORAL 07/30/17 12:00 08/05/17 19:29 07/31/17 05:43 Levothyroxine Sodium (Synthroid) 125 mcg ACBREAKFAST ORAL 07/31/17 06:30 08/29/17 06:29 07/31/17 05:42 Lorazepam (Ativan 2mg/ml 1ml) 2 mg Q6H PRN IV For Breakthrough Anxiety 07/30/17 12:15 08/06/17 12:14 Metronidazole 100 ml @ 100 mls/hr Q8H IVPB 07/31/17 00:00 08/07/17 00:00 07/31/17 08:15 Morphine Sulfate (Morphine Sulfate) 4 mg Q4H PRN IVP Severe Pain (Pain Scale 7-10) 07/30/17 10:15 08/05/17 18:14 07/30/17 14:47 Ondansetron HCl (Zofran) 4 mg Q6H PRN IVP Nausea & Vomiting 07/30/17 12:15 08/28/17 18:14 Pantoprazole (Protonix) 40 mg EVERY 12 HOURS IVP 07/30/17 09:00 08/28/17 22:59 07/31/17 09:16 Polyethylene Glycol (Miralax) 17 gm DAILYPRN PRN ORAL Constipation 07/30/17 18:15 08/28/17 18:14 Potassium Chloride (K-Dur) 40 meq TWICE A DAY ORAL 07/31/17 09:00 08/30/17 08:59 Quetiapine Fumarate (SEROquel) 100 mg TID ORAL 07/30/17 22:00 08/29/17 21:59 07/30/17 21:09 Sodium Chloride 1,000 ml @ 50 mls/hr Q20H IV 07/30/17 08:00 08/28/17 07:59 07/31/17 04:30 Vancomycin HCl 1 gm/Dextrose 275 ml @ 183.708 mls/hr Q12HR IVPB 07/30/17 09:00 08/04/17 08:59 07/30/17 21:53 Assessment/Plan Assessment/Plan Abx: IV Vanco 07/29- Cefepime 07/29- Metronidazole 07/31- Assesment: SOB- possibly multifactorial due to CHF, possible PNA -CXR: Bilateral diffuse infiltrates versus edema-correlate with clinical findings. Leukocytosis, improving -afebrile Abd pain- r/o recurrent ulcer Diarrhea- r/o recurrent Cdiff Hx Cdiff -Negative C Diff 04/18/17 at [facility]) gastric bypass with hx of anastomosis ulceration, chronic low back pain, thyroid disease, GERD MDD Plan: -Continue IV Vanco and Cefepime pending sp culture -Continue Flagyl pending Cdiff -For EGD today per GI -f/u cx -Monitor CBC/BMP, temperatures -Aspiration precautions Thank you for this consultation. Will continue to follow along with you. Discussed with EMILY. Aziza Sosa M.D. Jul 31, 2017 09:44
[2017-07-31] MEDS: Vancomycin 1gm in D5W 275ml IVPB SCH ×2 (10:16→18:12)
--- NOTE | 2017-07-31 10:36 | Pre-Procedure Note/Attestation ---
Pre-Procedure Note/Attestation Complete Prior to Procedure Planned Procedure: not applicable Procedure Narrative: egd Indications for Procedure Pre-Operative Diagnosis: abd pain Attestation I attest that I discussed the nature of the procedure; its benefits; risks and complications; and alternatives (and the risks and benefits of such alternatives ), prior to the procedure, with the patient (or the patient's legal contact representative). I attest that, if there was a reasonable possibility of needing a blood transfusion, the patient (or the patient's legal contact representative) was given the [facility] standardized written summary, pursuant to the Elías [place] Blood Safety Act ([place] Health and Safety Code # 1645, as amended). I attest that I re-evaluated the patient just prior to the surgery and that there has been no change in the patient's H&P, except as documented below: JOSE CHAPARRO Jul 31, 2017 10:36
--- NOTE | 2017-07-31 10:41 | Pulmonology Progress Note ---
Assessment/Plan Problems: (1) Pneumonia (2) Abdominal pain (3) Depression (4) PUD (peptic ulcer disease) (5) H/O gastric bypass Assessment/Plan continue abx, Cefepime, Flagyl check cultures ID evaluation appreciated echo reviewed check echo f/u BNP gi evaluation Subjective ROS Limited/Unobtainable: No Constitutional: Reports: no symptoms HEENT: Repors: no symptoms Respiratory: Reports: no symptoms Allergies: Coded Allergies: MORPHINE (Verified Allergy, Unknown, 07/31/17) Per patient statement, she is allergic to morphine. Objective Last 24 Hour Vital Signs Date Time Temp Pulse Resp B/P (MAP) Pulse Ox O2 Delivery O2 Flow Rate FiO2 07/31/17 08:00 97.9 62 18 145/78 96 Venturi Mask 45 07/31/17 07:16 74 07/31/17 04:00 79 07/31/17 04:00 99.7 80 24 129/75 94 Venturi Mask 45 07/31/17 00:00 87 07/31/17 00:00 99.0 86 24 136/74 93 Venturi Mask 10.0 45 07/30/17 20:00 93 07/30/17 20:00 98.8 85 24 131/69 98 Venturi Mask 10.0 45 07/30/17 19:50 98.3 07/30/17 19:45 88 18 Venturi Mask 10.0 45 07/30/17 19:45 Venturi Mask 10.0 45 07/30/17 19:45 97 Venturi Mask 10.0 45 07/30/17 16:00 99.9 86 26 140/99 92 Non-Rebreather 10.0 07/30/17 16:00 95 07/30/17 12:00 99.7 78 28 148/85 97 Non-Rebreather 10.0 07/30/17 12:00 82 General Appearance: WD/WN HEENT: normocephalic Respiratory/Chest: chest wall non-tender, lungs clear Breasts: no masses Abdomen: normal bowel sounds, soft, non tender Genitourinary: normal external genitalia Extremities: no cyanosis Skin: no rash Laboratory Tests 07/30/17 20:33: Troponin I 0.006, Pro-B-Type Natriuretic Peptide 4977H 07/31/17 04:35: Troponin I 0.006, White Blood Count 13.6H, Red Blood Count 3.22L, Hemoglobin 10.1L, Hematocrit 31.7L, Mean Corpuscular Volume 99, Mean Corpuscular Hemoglobin 31.5H, Mean Corpuscular Hemoglobin Concent 32.0, Red Cell Distribution Width 12.9, Platelet Count 380, Mean Platelet Volume 5.6L, Neutrophils (%) (Auto) 75.6H, Lymphocytes (%) (Auto) 16.3L, Monocytes (%) (Auto ) 6.8, Eosinophils (%) (Auto) 0.8, Basophils (%) (Auto) 0.5, Sodium Level 144, Potassium Level 2.9L, Chloride Level 110H, Carbon Dioxide Level 27, Anion Gap 7 , Blood Urea Nitrogen 4L, Creatinine 0.6, Estimat Glomerular Filtration Rate > 60, Glucose Level 97, Lactic Acid Level 0.60L, Calcium Level 8.2L, Magnesium Level 1.9, Total Bilirubin 0.6, Aspartate Amino Transf (AST/SGOT) 14L, Alanine Aminotransferase (ALT/SGPT) 13, Alkaline Phosphatase 98, Total Protein 5.6L, Albumin 1.8L, Globulin 3.8, Albumin/Globulin Ratio 0.5L, Lipase 162 07/31/17 08:15: Vancomycin Level Trough 8.0 Current Medications Medications (Trade) Dose Ordered Sig/Donald Route PRN Reason Start Time Stop Time Status Last Admin Dose Admin Acetaminophen (Tylenol) 650 mg Q4H PRN ORAL FEVER 07/30/17 10:15 08/28/17 18:14 07/30/17 18:51 Albuterol/ Ipratropium (Albuterol/ Ipratropium) 3 ml Q4H PRN HHN Shortness of Breath 07/30/17 10:15 08/03/17 18:14 Alprazolam (Xanax) 0.5 mg THREE TIMES A DAY ORAL 07/30/17 13:00 08/06/17 12:59 07/30/17 18:50 Cefepime HCl 2 gm/ Dextrose 55 ml @ 110 mls/hr EVERY 12 HOURS IV 07/30/17 09:00 08/05/17 20:29 07/31/17 09:22 Dextrose (Dextrose 50%) STAT PRN IV Hypoglycemia 07/30/17 18:15 08/28/17 18:14 Gabapentin (Neurontin) 600 mg Q8HR ORAL 07/30/17 14:00 08/28/17 21:59 07/31/17 05:42 Heparin Sodium (Porcine) (Heparin 5000 units/ml) 5,000 units EVERY 12 HOURS SUBQ 07/30/17 09:00 08/28/17 20:59 07/30/17 21:09 Hydromorphone HCl (Dilaudid) 4 mg Q6HR ORAL 07/30/17 12:00 08/05/17 19:29 07/31/17 05:43 Levothyroxine Sodium (Synthroid) 125 mcg ACBREAKFAST ORAL 07/31/17 06:30 08/29/17 06:29 07/31/17 05:42 Lorazepam (Ativan 2mg/ml 1ml) 2 mg Q6H PRN IV For Breakthrough Anxiety 07/30/17 12:15 08/06/17 12:14 Metronidazole 100 ml @ 100 mls/hr Q8H IVPB 07/31/17 00:00 08/07/17 00:00 07/31/17 08:15 Morphine Sulfate (Morphine Sulfate) 4 mg Q4H PRN IVP Severe Pain (Pain Scale 7-10) 07/30/17 10:15 08/05/17 18:14 07/30/17 14:47 Ondansetron HCl (Zofran) 4 mg Q6H PRN IVP Nausea & Vomiting 07/30/17 12:15 08/28/17 18:14 Pantoprazole (Protonix) 40 mg EVERY 12 HOURS IVP 07/30/17 09:00 08/28/17 22:59 07/31/17 09:16 Polyethylene Glycol (Miralax) 17 gm DAILYPRN PRN ORAL Constipation 07/30/17 18:15 08/28/17 18:14 Potassium Chloride 10 meq/ Sodium Chloride 115 ml @ 115 mls/hr Q1H IVPB 07/31/17 11:00 07/31/17 11:59 07/31/17 10:26 Potassium Chloride (K-Dur) 40 meq TWICE A DAY ORAL 07/31/17 09:00 08/30/17 08:59 Quetiapine Fumarate (SEROquel) 100 mg TID ORAL 07/30/17 22:00 08/29/17 21:59 07/30/17 21:09 Sodium Chloride 1,000 ml @ 50 mls/hr Q20H IV 07/30/17 08:00 08/28/17 07:59 07/31/17 04:30 Vancomycin HCl 1 gm/Dextrose 275 ml @ 183.708 mls/hr Q12HR IVPB 07/30/17 09:00 08/04/17 08:59 07/31/17 10:16 TAMMY MALDONADO Jul 31, 2017 10:41
[2017-07-31] MEDS ORDERED: Potassium Chloride 10 MEQ in NS 110 ML IVPB SCH (11:00)
--- NOTE | 2017-07-31 11:06 | General Progress Note ---
Assessment/Plan Assessment/Plan Assessment - abdominal pain - ? etiology, ? due to colitis - hypokalemia - po and IV replacement - diarrhea (Negative C Diff 04/18/17 at [facility]) - Leukocytosis - better - s/p RAVIN 2011 - h/o anastamotic GJ ulcer - chronic abd pain complaints Recommendations - continue Vanco Cefepime, flagyl - check stool for C Diff and culture - contact isolation - EGD today - PPI Subjective Allergies: Coded Allergies: MORPHINE (Verified Allergy, Unknown, 07/31/17) Per patient statement, she is allergic to morphine. Subjective above noted no new symptoms NPO for EGD today WBC lower Objective Last 24 Hour Vital Signs Date Time Temp Pulse Resp B/P (MAP) Pulse Ox O2 Delivery O2 Flow Rate FiO2 07/31/17 08:00 97.9 62 18 145/78 96 Venturi Mask 45 07/31/17 07:16 74 07/31/17 04:00 79 07/31/17 04:00 99.7 80 24 129/75 94 Venturi Mask 45 07/31/17 00:00 87 07/31/17 00:00 99.0 86 24 136/74 93 Venturi Mask 10.0 45 07/30/17 20:00 93 07/30/17 20:00 98.8 85 24 131/69 98 Venturi Mask 10.0 45 07/30/17 19:50 98.3 07/30/17 19:45 88 18 Venturi Mask 10.0 45 07/30/17 19:45 Venturi Mask 10.0 45 07/30/17 19:45 97 Venturi Mask 10.0 45 07/30/17 16:00 99.9 86 26 140/99 92 Non-Rebreather 10.0 07/30/17 16:00 95 07/30/17 12:00 99.7 78 28 148/85 97 Non-Rebreather 10.0 07/30/17 12:00 82 Intake and Output 07/31/17 08/01/17 19:00 07:00 Intake Total 205 ml Balance 205 ml IV Total 205 ml Laboratory Tests 07/30/17 20:33: Troponin I 0.006, Pro-B-Type Natriuretic Peptide 4977H 07/31/17 04:35: Troponin I 0.006, White Blood Count 13.6H, Red Blood Count 3.22L, Hemoglobin 10.1L, Hematocrit 31.7L, Mean Corpuscular Volume 99, Mean Corpuscular Hemoglobin 31.5H, Mean Corpuscular Hemoglobin Concent 32.0, Red Cell Distribution Width 12.9, Platelet Count 380, Mean Platelet Volume 5.6L, Neutrophils (%) (Auto) 75.6H, Lymphocytes (%) (Auto) 16.3L, Monocytes (%) (Auto ) 6.8, Eosinophils (%) (Auto) 0.8, Basophils (%) (Auto) 0.5, Sodium Level 144, Potassium Level 2.9L, Chloride Level 110H, Carbon Dioxide Level 27, Anion Gap 7 , Blood Urea Nitrogen 4L, Creatinine 0.6, Estimat Glomerular Filtration Rate > 60, Glucose Level 97, Lactic Acid Level 0.60L, Calcium Level 8.2L, Magnesium Level 1.9, Total Bilirubin 0.6, Aspartate Amino Transf (AST/SGOT) 14L, Alanine Aminotransferase (ALT/SGPT) 13, Alkaline Phosphatase 98, Total Protein 5.6L, Albumin 1.8L, Globulin 3.8, Albumin/Globulin Ratio 0.5L, Lipase 162 07/31/17 08:15: Vancomycin Level Trough 8.0 Height (Feet): 5 Height (Inches): 3.00 Weight (Pounds): 176 Objective Elderly AA woman NCAT supple coarse BS RR abd soft and flat, but mild diffuse TTP during exam no edema awake and alert JOSE CHAPARRO Jul 31, 2017 11:06
[2017-07-31] MEDS ORDERED: Atropine Inj 1mg/10ml Syr IV PRN (11:15)
[2017-07-31] MEDS ORDERED: fentaNYL 100 mcg/2 mL IV PRN (11:15)
[2017-07-31] MEDS ORDERED: DiphenhydrAMINE 50mg/ml Inj IVP PRN (11:15)
[2017-07-31] MEDS ORDERED: Midazolam 2mg/2ml Inj IVP PRN (11:15)
[2017-07-31] MEDS ORDERED: NS 500ML IV ONE (11:27)
[2017-07-31] MEDS ORDERED: Propofol 200mg/20ml IV ONE (11:30)
[2017-07-31] MEDS ORDERED: Lidocaine 1% MPF 10mg/ml 5ml ONE (11:30)
--- NOTE | 2017-07-31 11:57 | Immediate Post-Op Evaluation ---
Immediate Post-Op Evalulation Immediate Post-Op Evalulation Procedure: egd Date of Evaluation: Jul 31, 2017 Time of Evaluation: 11:57 IV Fluids: 50ml 0.9ns Blood Products: none Estimated Blood Loss: negligible Blood Pressure Systolic: 141 Blood Pressure Diastolic: 77 Pulse Rate: 75 Respiratory Rate: 47 O2 Sat by Pulse Oximetry: 94 Temperature (Fahrenheit): 94.7 Pain Score (1-10): 0 Nausea: No Vomiting: No Complications none Patient Status: awake, reacts, patent Hydration Status: adequate Drug: LYLY Johnson Jul 31, 2017 11:57
--- NOTE | 2017-07-31 12:01 | 48 Hour Post Anesthesia Eval ---
Post Anesthesia Evaluation Procedure: egd Date of Evaluation: Jul 31, 2017 Time of Evaluation: 12:01 Blood Pressure Systolic: 144 0: 77 Pulse Rate: 75 Respiratory Rate: 28 Temperature (Fahrenheit): 97.4 O2 Sat by Pulse Oximetry: 94 Airway: patent Nausea: No Vomiting: No Pain Intensity: 0 Hydration Status: adequate Cardiopulmonary Status: stable Mental Status/LOC: patient returned to baseline Post-Anesthesia Complications: none Follow-up care needed: N/A LYLY FULLER Jul 31, 2017 12:01
[2017-07-31] MEDS ORDERED: Tubing IV Secondary IV ONE (13:37)
[2017-07-31] MEDS ORDERED: 1/2 NS 1000ml IV ONE (13:37)
--- NOTE | 2017-07-31 20:12 | Cardiology Progress Note ---
Assessment/Plan Assessment/Plan 1. Bilateral pulmonary infiltrates. 2. Abdominal pain. 3. History of peptic ulcer disease 4. hypokalemia bnp sig elevated low grade fever wbc is better will give some diurtic over nite . trops neg in isolation now Subjective Cardiovascular: Reports: chest pain Respiratory: Reports: shortness of breath Gastrointestinal/Abdominal: Reports: abdominal pain Genitourinary: Denies: burning Objective Last 24 Hour Vital Signs Date Time Temp Pulse Resp B/P (MAP) Pulse Ox O2 Delivery O2 Flow Rate FiO2 07/31/17 19:49 Venturi Mask 10.0 45 07/31/17 19:49 95 Venturi Mask 10.0 45 07/31/17 19:48 107 22 Venturi Mask 10.0 45 07/31/17 19:12 99.1 07/31/17 16:00 99.1 96 18 120/73 96 Venturi Mask 10.0 45 07/31/17 16:00 96 07/31/17 12:30 97.6 77 20 149/81 96 Venturi Mask 10.0 45 07/31/17 12:15 69 18 156/86 98 Venturi Mask 10.0 45 07/31/17 12:05 72 20 146/76 98 Venturi Mask 10.0 45 07/31/17 12:01 75 28 94 07/31/17 12:00 98.0 80 18 139/70 94 Nasal Cannula 07/31/17 12:00 74 07/31/17 11:57 75 47 94 07/31/17 11:55 72 22 142/77 97 Venturi Mask 10.0 45 07/31/17 11:50 71 20 145/82 96 Venturi Mask 10.0 45 07/31/17 11:45 97.4 80 22 141/77 96 Venturi Mask 10.0 45 07/31/17 08:00 97.9 62 18 145/78 96 Venturi Mask 45 07/31/17 07:16 74 07/31/17 04:00 79 07/31/17 04:00 99.7 80 24 129/75 94 Venturi Mask 45 07/31/17 00:00 87 07/31/17 00:00 99.0 86 24 136/74 93 Venturi Mask 10.0 45 General Appearance: no apparent distress, alert Neck: supple Cardiovascular: normal rate, regular rhythm Respiratory/Chest: lungs clear Abdomen: normal bowel sounds, non tender, soft Extremities: no swelling Intake and Output 07/31/17 08/01/17 19:00 07:00 Intake Total 1305 ml Balance 1305 ml Intake Oral 600 ml IV Total 705 ml # Voids 3 # Bowel Movements 3 Laboratory Tests Test 07/30/17 20:33 07/31/17 04:35 07/31/17 08:15 Troponin I 0.006 ng/mL (0.000-0.056) 0.006 ng/mL (0.000-0.056) Pro-B-Type Natriuretic Peptide 4977 pg/mL (0-125) H White Blood Count 13.6 K/UL (4.8-10.8) H Red Blood Count 3.22 M/UL (4.20-5.40) L Hemoglobin 10.1 G/DL (12.0-16.0) L Hematocrit 31.7 % (37.0-47.0) L Mean Corpuscular Volume 99 FL (80-99) Mean Corpuscular Hemoglobin 31.5 PG (27.0-31.0) H Mean Corpuscular Hemoglobin Concent 32.0 G/DL (32.0-36.0) Red Cell Distribution Width 12.9 % (11.6-14.8) Platelet Count 380 K/UL (150-450) Mean Platelet Volume 5.6 FL (6.5-10.1) L Neutrophils (%) (Auto) 75.6 % (45.0-75.0) H Lymphocytes (%) (Auto) 16.3 % (20.0-45.0) L Monocytes (%) (Auto) 6.8 % (1.0-10.0) Eosinophils (%) (Auto) 0.8 % (0.0-3.0) Basophils (%) (Auto) 0.5 % (0.0-2.0) Sodium Level 144 MMOL/L (136-145) Potassium Level 2.9 MMOL/L (3.5-5.1) L Chloride Level 110 MMOL/L (98-107) H Carbon Dioxide Level 27 MMOL/L (21-32) Anion Gap 7 mmol/L (5-15) Blood Urea Nitrogen 4 mg/dL (7-18) L Creatinine 0.6 MG/DL (0.55-1.30) Estimat Glomerular Filtration Rate > 60 mL/min (>60) Glucose Level 97 MG/DL (74-106) Lactic Acid Level 0.60 mmol/L (0.66-2.22) L Calcium Level 8.2 MG/DL (8.5-10.1) L Magnesium Level 1.9 MG/DL (1.8-2.4) Total Bilirubin 0.6 MG/DL (0.2-1.0) Aspartate Amino Transf (AST/SGOT) 14 U/L (15-37) L Alanine Aminotransferase (ALT/SGPT) 13 U/L (12-78) Alkaline Phosphatase 98 U/L (46-116) Total Protein 5.6 G/DL (6.4-8.2) L Albumin 1.8 G/DL (3.4-5.0) L Globulin 3.8 g/dL Albumin/Globulin Ratio 0.5 (1.0-2.7) L Lipase 162 U/L (73-393) Vancomycin Level Trough 8.0 ug/mL (5.0-12.0) YAW WALLACE Jul 31, 2017 20:12
--- NOTE | 2017-07-31 21:33 | Endoscopy Procedure Note ---
Endoscopy Procedure Note Indication for Procedure: abd pain Procedures Performed: EGD Operative Findings/Diagnosis: anastomotic ulcers x 3 Specimen: none Pt Tolerated Procedure Well: Yes Estimated Blood Loss: none Anesthesiologist: peewee cardona Anesthesia: MAC, moderate sedation Medication Given: see anesthesia record Implant(s) used?: No 50 yrs or older w/o bx or poly: Not Applicable 10yrs. F/U not recommended: Not Applicable If not recommended, why?: JOSE CHAPARRO Jul 31, 2017 21:33
--- NOTE | 2017-07-31 21:34 | Brief Operative Note ---
Immediate Post Operative Note Operative Note Chief Complaint: abd pain Pre-op Diagnosis: abd pain Procedure: EGD/Ent Surgeon: danielle Anesthesiologist: Ervin cardona Anesthesia: MAC Specimen: none Complications: none Condition: stable Fluids: see rec Estimated Blood Loss: none Drains: none Implant(s) used?: No JOSE CHAPARRO Jul 31, 2017 21:34
--- NOTE | 2017-07-31 23:29 | General Progress Note ---
Assessment/Plan Status: stable, progressing Assessment/Plan MDD seroquel xanax Subjective Neurologic/Psychiatric: Reports: anxiety, depressed, emotional problems Allergies: Coded Allergies: MORPHINE (Verified Allergy, Unknown, 07/31/17) Per patient statement, she is allergic to morphine. Subjective the pt is 1:1 asleep no interested in eval not engaged Objective Last 24 Hour Vital Signs Date Time Temp Pulse Resp B/P (MAP) Pulse Ox O2 Delivery O2 Flow Rate FiO2 07/31/17 20:00 99 07/31/17 20:00 98.6 106 26 122/64 94 Venturi Mask 10.0 45 07/31/17 19:49 Venturi Mask 10.0 45 07/31/17 19:49 95 Venturi Mask 10.0 45 07/31/17 19:48 107 22 Venturi Mask 10.0 45 07/31/17 19:12 99.1 07/31/17 16:00 99.1 96 18 120/73 96 Venturi Mask 10.0 45 07/31/17 16:00 96 07/31/17 12:30 97.6 77 20 149/81 96 Venturi Mask 10.0 45 07/31/17 12:15 69 18 156/86 98 Venturi Mask 10.0 45 07/31/17 12:05 72 20 146/76 98 Venturi Mask 10.0 45 07/31/17 12:01 75 28 94 07/31/17 12:00 98.0 80 18 139/70 94 Nasal Cannula 07/31/17 12:00 74 07/31/17 11:57 75 47 94 07/31/17 11:55 72 22 142/77 97 Venturi Mask 10.0 45 07/31/17 11:50 71 20 145/82 96 Venturi Mask 10.0 45 07/31/17 11:45 97.4 80 22 141/77 96 Venturi Mask 10.0 45 07/31/17 08:00 97.9 62 18 145/78 96 Venturi Mask 45 07/31/17 07:16 74 07/31/17 04:00 79 07/31/17 04:00 99.7 80 24 129/75 94 Venturi Mask 45 07/31/17 00:00 87 07/31/17 00:00 99.0 86 24 136/74 93 Venturi Mask 10.0 45 Intake and Output 07/31/17 08/01/17 19:00 07:00 Intake Total 1305 ml Balance 1305 ml Intake Oral 600 ml IV Total 705 ml # Voids 3 # Bowel Movements 3 Laboratory Tests 07/31/17 04:35: White Blood Count 13.6H, Red Blood Count 3.22L, Hemoglobin 10.1L, Hematocrit 31.7L, Mean Corpuscular Volume 99, Mean Corpuscular Hemoglobin 31.5H, Mean Corpuscular Hemoglobin Concent 32.0, Red Cell Distribution Width 12.9, Platelet Count 380, Mean Platelet Volume 5.6L, Neutrophils (%) (Auto) 75.6H, Lymphocytes (%) (Auto) 16.3L, Monocytes (%) (Auto) 6.8, Eosinophils (%) (Auto) 0.8, Basophils (%) (Auto) 0.5, Sodium Level 144, Potassium Level 2.9L, Chloride Level 110H, Carbon Dioxide Level 27, Anion Gap 7, Blood Urea Nitrogen 4L, Creatinine 0.6, Estimat Glomerular Filtration Rate > 60, Glucose Level 97, Lactic Acid Level 0.60L, Calcium Level 8.2L, Magnesium Level 1.9, Total Bilirubin 0.6, Aspartate Amino Transf (AST/SGOT) 14L, Alanine Aminotransferase ( ALT/SGPT) 13, Alkaline Phosphatase 98, Troponin I 0.006, Total Protein 5.6L, Albumin 1.8L, Globulin 3.8, Albumin/Globulin Ratio 0.5L, Lipase 162 07/31/17 08:15: Vancomycin Level Trough 8.0 Height (Feet): 5 Height (Inches): 3.00 Weight (Pounds): 176 General Appearance: no apparent distress, alert Neurologic: alert, oriented x 3, responsive, depressed affect Shweta Cervantes M.D. Jul 31, 2017 23:29
[2017-08-01 00:03] VITALS: BP 133/85
[2017-08-01] MEDS: HYDROmorphone 4mg tab ORAL SCH ×4 (00:44→18:00)
--- NOTE | 2017-08-01 02:15 | Procedure Note ---
DATE OF PROCEDURE: 07/31/2017 PROCEDURE: Upper gastroendoscopy with enteroscopy. SURGEON: Mary Kay Magana M.D. ANESTHESIA: Please see the separate anesthesiologist notes for details. PRE-ENDOSCOPIC DIAGNOSIS: Abdominal pain. POST-ENDOSCOPIC DIAGNOSES: 1. Status post Bouchra-en-Y gastric bypass surgery as expected. 2. Hiatal hernia measuring approximately 4 cm with a prior gastric pouch measuring approximately 7-8 cm. 3. There were three anastomotic ulcers seen on the gastric side of the anastomosis. Two appeared to be wide-based and approximately 1-1.5 cm each. The third one was somewhat smaller and shallow. 4. No active bleeding was identified. PROCEDURE: The procedure, its risks, indications, alternatives, and possible complications were explained to the patient and informed consent was obtained. The patient was then sedated in the left lateral decubitus position. A diagnostic upper endoscope was introduced through the oropharynx and advanced to the jejunum without difficulty. The endoscope was then gradually withdrawn and the mucosa was examined carefully. Examination of the upper gastrointestinal mucosa was notable for above findings. The endoscope was removed and the patient was sent to recovery in good condition. COMPLICATIONS: None. ASSESSMENT: The above findings showed the patient's previously known and previously healed ulcers have now returned. These ulcers are may be secondary phenomenon and that the patient may have abdominal pain from a different source. She will be treated with proton-pump inhibitor and also Carafate will be added four times a day. The patient's stools should be checked for Clostridium difficile colitis to rule out any separate pathology in the colon. RECOMMENDATIONS: Per above discussion and per orders written in the chart. Thank you for asking me to participate in the care of this patient. Mary Kay Magnaa M.D. DR: Kurt JOB#: [id number] CC:
[2017-08-01] MEDS: Vancomycin 1gm in D5W 275ml IVPB SCH ×2 (02:29→10:39)
[2017-08-01 04:00] VITALS: BP 115/71
[2017-08-01 05:12] LABS: BASOPHILS % (AUTO) 0.6 % (0.0-2.0); EOSINOPHILS % (AUTO) 1.2 % (0.0-3.0); LYMPHOCYTES % (AUTO) 23.2 % (20.0-45.0); MEAN CORPUSCULAR HEMOGLOBIN 31.4 PG (27.0-31.0); MEAN CORPUSCULAR HGB CONC 31.7 G/DL (32.0-36.0); MEAN CORPUSCULAR VOLUME 99 FL (80-99); MEAN PLATELET VOLUME 5.6 FL (6.5-10.1); MONOCYTES % (AUTO) 9.6 % (1.0-10.0); NEUTROPHILS % (AUTO) 65.4 % (45.0-75.0); PLATELET COUNT 376 K/UL (150-450); RED CELL DISTRIBUTION WIDTH 13.4 % (11.6-14.8); WHITE BLOOD COUNT 11.3 K/UL (4.8-10.8)
[2017-08-01 05:46] LABS: ALANINE AMINOTRANSFERASE 12 U/L (12-78); ALBUMIN/GLOBULIN RATIO 0.5 (1.0-2.7); ANION GAP 9 mmol/L (5-15); ASPARTATE AMINO TRANSFERASE 13 U/L (15-37); CALCIUM 8.4 MG/DL (8.5-10.1); CARBON DIOXIDE 27 MMOL/L (21-32); CHLORIDE 110 MMOL/L (98-107); CREATININE 0.8 MG/DL (0.55-1.30); GLOMERULAR FILTRATION RATE > 60 mL/min (>60); PHOSPHORUS 2.5 MG/DL (2.5-4.9); POTASSIUM 3.1 MMOL/L (3.5-5.1); SODIUM 146 MMOL/L (136-145); TOTAL PROTEIN 5.7 G/DL (6.4-8.2)
[2017-08-01 06:14] LABS: ERYTHROCYTE SEDIMENTATION RATE 112 MM/HR (0-30)
[2017-08-01] MEDS: Levothyroxine 125mcg tab ORAL SCH (06:19)
[2017-08-01 08:00] VITALS: BP 115/71
[2017-08-01] MEDS ORDERED: Potassium Chloride 40 MEQ in Sodium Chloride 500ML 550 ML IVPB ONE (09:00)
[2017-08-01] MEDS: ALPRAZolam 0.5mg tab ORAL SCH ×3 (09:05→17:59)
[2017-08-01] MEDS: Pantoprazole Inj IVP SCH ×2 (09:05→20:30)
[2017-08-01] MEDS: Cefepime HCl 2 GM in D5W 55 ML IV SCH ×2 (09:06→20:30)
--- NOTE | 2017-08-01 09:12 | Pulmonology Progress Note ---
Assessment/Plan Assessment/Plan ASSESSMENT PNA PUD abdominal pain 2 to PUD s/p EGD 07/31 hx of gastric bypass hypokalemia mild pulmonary HTN MDD possible malnutrition PLAN OF CARE [facility] abx ID follows CXR with bilateral infiltrates vs edema leukocytosis resolved sputum cx if able O2 titrate to keep sat above 92% HHN Venous Duplex BLE cardio follows troponin negative s/p lasix x 1 fup with CXR and pro BNP today ECHO with pEF 60-65% and RVSP of 44 c/w mild pulmonary HTN s/p EGD 07/31 with findings of 3 anastomotic ulcers, HH, but no active bleeding started on PPI and Carafate check stool for C dif pain management replace K, Mg WNL, fup with lytes psych follows, psych meds as per psych management DVT prophayxlis dietary eval dc plan case discussed and evaluated by supervising physician Subjective Allergies: Coded Allergies: MORPHINE (Verified Allergy, Unknown, 07/31/17) Per patient statement, she is allergic to morphine. Subjective leukocytosis resolved , afebrile remains on VM 10L denies chest pain Objective Last 24 Hour Vital Signs Date Time Temp Pulse Resp B/P (MAP) Pulse Ox O2 Delivery O2 Flow Rate FiO2 08/01/17 07:30 Venturi Mask 10.0 45 08/01/17 07:30 74 22 Venturi Mask 10.0 45 08/01/17 07:30 99 Venturi Mask 10.0 45 08/01/17 07:17 97.5 08/01/17 04:00 97.5 83 26 115/71 100 Venturi Mask 10.0 45 08/01/17 04:00 81 08/01/17 00:47 98.1 08/01/17 00:03 98.1 86 28 133/85 99 Venturi Mask 10.0 45 08/01/17 00:00 93 07/31/17 20:00 99 07/31/17 20:00 98.6 106 26 122/64 94 Venturi Mask 10.0 45 07/31/17 19:49 Venturi Mask 10.0 45 07/31/17 19:49 95 Venturi Mask 10.0 45 07/31/17 19:48 107 22 Venturi Mask 10.0 45 07/31/17 16:00 99.1 96 18 120/73 96 Venturi Mask 10.0 45 07/31/17 16:00 96 07/31/17 12:30 97.6 77 20 149/81 96 Venturi Mask 10.0 45 07/31/17 12:15 69 18 156/86 98 Venturi Mask 10.0 45 07/31/17 12:05 72 20 146/76 98 Venturi Mask 10.0 45 07/31/17 12:01 75 28 94 07/31/17 12:00 98.0 80 18 139/70 94 Nasal Cannula 07/31/17 12:00 74 07/31/17 11:57 75 47 94 07/31/17 11:55 72 22 142/77 97 Venturi Mask 10.0 45 07/31/17 11:50 71 20 145/82 96 Venturi Mask 10.0 45 07/31/17 11:45 97.4 80 22 141/77 96 Venturi Mask 10.0 45 General Appearance: no acute distress HEENT: normocephalic, atraumatic, anicteric, other - VM 10L Respiratory/Chest: no respiratory distress, decreased breath sounds Cardiovascular: normal peripheral pulses, normal rate, bradycardia - SB on tele Abdomen: soft, non tender, non distended Extremities: no edema Neurologic/Psychiatric: alert, oriented x 3 Musculoskeletal: normal muscle bulk Laboratory Tests 08/01/17 03:21: White Blood Count 11.3H, Red Blood Count 3.20L, Hemoglobin 10.1L, Hematocrit 31.7L, Mean Corpuscular Volume 99, Mean Corpuscular Hemoglobin 31.4H, Mean Corpuscular Hemoglobin Concent 31.7L, Red Cell Distribution Width 13.4, Platelet Count 376, Mean Platelet Volume 5.6L, Neutrophils (%) (Auto) 65.4, Lymphocytes (%) (Auto) 23.2, Monocytes (%) (Auto) 9.6, Eosinophils (%) (Auto) 1.2, Basophils (%) (Auto) 0.6, Erythrocyte Sedimentation Rate 112H, Sodium Level 146H, Potassium Level 3.1L, Chloride Level 110H, Carbon Dioxide Level 27, Anion Gap 9, Blood Urea Nitrogen 4L, Creatinine 0.8, Estimat Glomerular Filtration Rate > 60, Glucose Level 124H, Calcium Level 8.4L, Phosphorus Level 2.5, Magnesium Level 2.0, Total Bilirubin 0.6, Aspartate Amino Transf (AST/SGOT ) 13L, Alanine Aminotransferase (ALT/SGPT) 12, Alkaline Phosphatase 91, Total Protein 5.7L, Albumin 1.8L, Globulin 3.9, Albumin/Globulin Ratio 0.5L Current Medications Medications (Trade) Dose Ordered Sig/Donald Route PRN Reason Start Time Stop Time Status Last Admin Dose Admin Acetaminophen (Tylenol) 650 mg Q4H PRN ORAL FEVER 07/30/17 10:15 08/28/17 18:14 07/31/17 23:48 Albuterol/ Ipratropium (Albuterol/ Ipratropium) 3 ml Q4H PRN HHN Shortness of Breath 07/30/17 10:15 08/03/17 18:14 Alprazolam (Xanax) 0.5 mg THREE TIMES A DAY ORAL 07/30/17 13:00 08/06/17 12:59 07/31/17 18:13 Cefepime HCl 2 gm/ Dextrose 55 ml @ 110 mls/hr EVERY 12 HOURS IV 07/30/17 09:00 08/05/17 20:29 07/31/17 22:33 Dextrose (Dextrose 50%) STAT PRN IV Hypoglycemia 07/30/17 18:15 08/28/17 18:14 Gabapentin (Neurontin) 600 mg Q8HR ORAL 07/30/17 14:00 08/28/17 21:59 08/01/17 06:18 Heparin Sodium (Porcine) (Heparin 5000 units/ml) 5,000 units EVERY 12 HOURS SUBQ 07/30/17 09:00 08/28/17 20:59 07/31/17 22:34 Hydromorphone HCl (Dilaudid) 4 mg Q6HR ORAL 07/30/17 12:00 08/05/17 19:29 08/01/17 06:18 Levothyroxine Sodium (Synthroid) 125 mcg ACBREAKFAST ORAL 07/31/17 06:30 08/29/17 06:29 08/01/17 06:19 Lorazepam (Ativan 2mg/ml 1ml) 2 mg Q6H PRN IV For Breakthrough Anxiety 07/30/17 12:15 08/06/17 12:14 Metronidazole 100 ml @ 100 mls/hr Q8H IVPB 07/31/17 00:00 08/07/17 00:00 08/01/17 00:45 Morphine Sulfate (Morphine Sulfate) 4 mg Q4H PRN IVP Severe Pain (Pain Scale 7-10) 07/30/17 10:15 08/05/17 18:14 07/30/17 14:47 Ondansetron HCl (Zofran) 4 mg Q6H PRN IVP Nausea & Vomiting 07/30/17 12:15 08/28/17 18:14 Pantoprazole (Protonix) 40 mg EVERY 12 HOURS IVP 07/30/17 09:00 08/28/17 22:59 07/31/17 22:32 Polyethylene Glycol (Miralax) 17 gm DAILYPRN PRN ORAL Constipation 07/30/17 18:15 08/28/17 18:14 Potassium Chloride 40 meq/ Sodium Chloride 570 ml @ 142.5 mls/ hr ONCE ONCE IVPB 08/01/17 09:00 08/01/17 12:59 UNV Potassium Chloride (K-Dur) 40 meq TWICE A DAY ORAL 07/31/17 09:00 08/30/17 08:59 07/31/17 18:13 Quetiapine Fumarate (SEROquel) 100 mg TID ORAL 07/30/17 22:00 08/29/17 21:59 07/31/17 18:13 Vancomycin HCl (Vanco rx to dose) 1 ea DAILY PRN MISC PER RX PROTOCOL 07/31/17 12:15 08/30/17 12:14 Vancomycin HCl 1 gm/Dextrose 275 ml @ 183.708 mls/hr Q8HR@0200,1000,1800 IVPB 07/31/17 18:00 08/05/17 17:59 08/01/17 02:29 Daisy Mace NP (Vanchtein) Aug 01, 2017 09:12
[2017-08-01] MEDS: Heparin 5000 units/ml inj SUBQ SCH ×2 (09:22→20:31)
[2017-08-01 10:11] LABS: BASOPHILS % (AUTO) 0.7 % (0.0-2.0); EOSINOPHILS % (AUTO) 1.9 % (0.0-3.0); LYMPHOCYTES % (AUTO) 28.4 % (20.0-45.0); MEAN CORPUSCULAR HEMOGLOBIN 31.5 PG (27.0-31.0); MEAN CORPUSCULAR HGB CONC 31.9 G/DL (32.0-36.0); MEAN CORPUSCULAR VOLUME 99 FL (80-99); MEAN PLATELET VOLUME 5.6 FL (6.5-10.1); MONOCYTES % (AUTO) 4.5 % (1.0-10.0); NEUTROPHILS % (AUTO) 64.5 % (45.0-75.0); PLATELET COUNT 420 K/UL (150-450); RED BLOOD COUNT 3.56 M/UL (4.20-5.40); WHITE BLOOD COUNT 9.5 K/UL (4.8-10.8)
[2017-08-01 10:27] LABS: ANION GAP 10 mmol/L (5-15); CALCIUM 8.5 MG/DL (8.5-10.1); CARBON DIOXIDE 26 MMOL/L (21-32); CHLORIDE 111 MMOL/L (98-107); GLOMERULAR FILTRATION RATE > 60 mL/min (>60); POTASSIUM 3.4 MMOL/L (3.5-5.1); SODIUM 147 MMOL/L (136-145)
--- NOTE | 2017-08-01 11:26 | Infectious Diseases Prog Note ---
Assessment/Plan Assessment/Plan Abx: IV Vanco 07/29- Cefepime 07/29- Metronidazole 07/31- Assesment: SOB- possibly multifactorial due to CHF, possible PNA -CXR: Bilateral diffuse infiltrates versus edema-correlate with clinical findings. Leukocytosis, resolved -afebrile Abd pain- 2ry to hiatal hernia and 3 anastomosis ulcers -EGD 07/31: Hiatal hernia measuring approximately 4 cm with a prior gastric pouch measuring approximately 7-8 cm. There were three anastomotic ulcers seen on the gastric side of the anastomosis. Two appeared to be wide-based and approximately 1-1.5 cm each. The third one was somewhat smaller and shallow. No active bleeding was identified. Diarrhea- r/o recurrent Cdiff CHARLIE Hx Cdiff -Negative C Diff 04/18/17 at [facility]) gastric bypass with hx of anastomosis ulceration, chronic low back pain, thyroid disease, GERD MDD Plan: -Continue IV Vanco and Cefepime #4/5-7 pending sp culture -Continue Flagyl pending Cdiff -f/u repeat CXR -f/u cx -Monitor CBC/BMP, temperatures -Aspiration precautions Thank you for this consultation. Will continue to follow along with you. Discussed with RN. Subjective Allergies: Coded Allergies: MORPHINE (Verified Allergy, Unknown, 07/31/17) Per patient statement, she is allergic to morphine. Subjective afebrile leukocytosis resolved s/p EGD yesterday Objective Vital Signs Last 24 Hour Vital Signs Date Time Temp Pulse Resp B/P (MAP) Pulse Ox O2 Delivery O2 Flow Rate FiO2 08/01/17 08:00 97.7 76 19 115/71 95 Venturi Mask 10.0 45 08/01/17 08:00 73 08/01/17 07:30 Venturi Mask 10.0 45 08/01/17 07:30 74 22 Venturi Mask 10.0 45 08/01/17 07:30 99 Venturi Mask 10.0 45 08/01/17 07:17 97.5 08/01/17 04:00 97.5 83 26 115/71 100 Venturi Mask 10.0 45 08/01/17 04:00 81 08/01/17 00:47 98.1 08/01/17 00:03 98.1 86 28 133/85 99 Venturi Mask 10.0 45 08/01/17 00:00 93 07/31/17 20:00 99 07/31/17 20:00 98.6 106 26 122/64 94 Venturi Mask 10.0 45 07/31/17 19:49 Venturi Mask 10.0 45 07/31/17 19:49 95 Venturi Mask 10.0 45 07/31/17 19:48 107 22 Venturi Mask 10.0 45 07/31/17 16:00 99.1 96 18 120/73 96 Venturi Mask 10.0 45 07/31/17 16:00 96 07/31/17 12:30 97.6 77 20 149/81 96 Venturi Mask 10.0 45 07/31/17 12:15 69 18 156/86 98 Venturi Mask 10.0 45 07/31/17 12:05 72 20 146/76 98 Venturi Mask 10.0 45 07/31/17 12:01 75 28 94 07/31/17 12:00 98.0 80 18 139/70 94 Nasal Cannula 07/31/17 12:00 74 07/31/17 11:57 75 47 94 07/31/17 11:55 72 22 142/77 97 Venturi Mask 10.0 45 07/31/17 11:50 71 20 145/82 96 Venturi Mask 10.0 45 07/31/17 11:45 97.4 80 22 141/77 96 Venturi Mask 10.0 45 Height (Feet): 5 Height (Inches): 3.00 Weight (Pounds): 176 Objective GENERAL: Shows to be a middle-aged female, in no respiratory distress. She is awake and responsive LUNGS: Appear to be clear on the right side. There are some crackles on the left side. CARDIAC: Regular rhythm. No heaves or thrills noted. ABDOMEN: Soft. There is some tenderness to deep palpation. No guarding. No rigidity. EXTREMITIES: There is no edema. No clubbing or cyanosis. NEUROLOGICAL: She is awake, alert, and responsive. Laboratory Tests Test 08/01/17 03:21 08/01/17 09:30 White Blood Count 11.3 K/UL (4.8-10.8) H 9.5 K/UL (4.8-10.8) Red Blood Count 3.20 M/UL (4.20-5.40) L 3.56 M/UL (4.20-5.40) L Hemoglobin 10.1 G/DL (12.0-16.0) L 11.2 G/DL (12.0-16.0) L Hematocrit 31.7 % (37.0-47.0) L 35.1 % (37.0-47.0) L Mean Corpuscular Volume 99 FL (80-99) 99 FL (80-99) Mean Corpuscular Hemoglobin 31.4 PG (27.0-31.0) H 31.5 PG (27.0-31.0) H Mean Corpuscular Hemoglobin Concent 31.7 G/DL (32.0-36.0) L 31.9 G/DL (32.0-36.0) L Red Cell Distribution Width 13.4 % (11.6-14.8) 13.0 % (11.6-14.8) Platelet Count 376 K/UL (150-450) 420 K/UL (150-450) Mean Platelet Volume 5.6 FL (6.5-10.1) L 5.6 FL (6.5-10.1) L Neutrophils (%) (Auto) 65.4 % (45.0-75.0) 64.5 % (45.0-75.0) Lymphocytes (%) (Auto) 23.2 % (20.0-45.0) 28.4 % (20.0-45.0) Monocytes (%) (Auto) 9.6 % (1.0-10.0) 4.5 % (1.0-10.0) Eosinophils (%) (Auto) 1.2 % (0.0-3.0) 1.9 % (0.0-3.0) Basophils (%) (Auto) 0.6 % (0.0-2.0) 0.7 % (0.0-2.0) Erythrocyte Sedimentation Rate 112 MM/HR (0-30) H Sodium Level 146 MMOL/L (136-145) H 147 MMOL/L (136-145) H Potassium Level 3.1 MMOL/L (3.5-5.1) L 3.4 MMOL/L (3.5-5.1) L Chloride Level 110 MMOL/L (98-107) H 111 MMOL/L (98-107) H Carbon Dioxide Level 27 MMOL/L (21-32) 26 MMOL/L (21-32) Anion Gap 9 mmol/L (5-15) 10 mmol/L (5-15) Blood Urea Nitrogen 4 mg/dL (7-18) L 5 mg/dL (7-18) L Creatinine 0.8 MG/DL (0.55-1.30) 1.0 MG/DL (0.55-1.30) Estimat Glomerular Filtration Rate > 60 mL/min (>60) > 60 mL/min (>60) Glucose Level 124 MG/DL (74-106) H 140 MG/DL (74-106) H Calcium Level 8.4 MG/DL (8.5-10.1) L 8.5 MG/DL (8.5-10.1) Phosphorus Level 2.5 MG/DL (2.5-4.9) Magnesium Level 2.0 MG/DL (1.8-2.4) Total Bilirubin 0.6 MG/DL (0.2-1.0) Aspartate Amino Transf (AST/SGOT) 13 U/L (15-37) L Alanine Aminotransferase (ALT/SGPT) 12 U/L (12-78) Alkaline Phosphatase 91 U/L (46-116) Total Protein 5.7 G/DL (6.4-8.2) L Albumin 1.8 G/DL (3.4-5.0) L Globulin 3.9 g/dL Albumin/Globulin Ratio 0.5 (1.0-2.7) L Pro-B-Type Natriuretic Peptide 351 pg/mL (0-125) H Current Medications Medications (Trade) Dose Ordered Sig/Donald Route PRN Reason Start Time Stop Time Status Last Admin Dose Admin Acetaminophen (Tylenol) 650 mg Q4H PRN ORAL FEVER 07/30/17 10:15 08/28/17 18:14 07/31/17 23:48 Albuterol/ Ipratropium (Albuterol/ Ipratropium) 3 ml Q4H PRN HHN Shortness of Breath 07/30/17 10:15 08/03/17 18:14 Alprazolam (Xanax) 0.5 mg THREE TIMES A DAY ORAL 07/30/17 13:00 08/06/17 12:59 08/01/17 09:05 Cefepime HCl 2 gm/ Dextrose 55 ml @ 110 mls/hr EVERY 12 HOURS IV 07/30/17 09:00 08/05/17 20:29 08/01/17 09:06 Dextrose (Dextrose 50%) STAT PRN IV Hypoglycemia 07/30/17 18:15 08/28/17 18:14 Gabapentin (Neurontin) 600 mg Q8HR ORAL 07/30/17 14:00 08/28/17 21:59 08/01/17 06:18 Heparin Sodium (Porcine) (Heparin 5000 units/ml) 5,000 units EVERY 12 HOURS SUBQ 07/30/17 09:00 08/28/17 20:59 08/01/17 09:22 Hydromorphone HCl (Dilaudid) 4 mg Q6HR ORAL 07/30/17 12:00 08/05/17 19:29 08/01/17 06:18 Levothyroxine Sodium (Synthroid) 125 mcg ACBREAKFAST ORAL 07/31/17 06:30 08/29/17 06:29 08/01/17 06:19 Lorazepam (Ativan 2mg/ml 1ml) 2 mg Q6H PRN IV For Breakthrough Anxiety 07/30/17 12:15 08/06/17 12:14 Metronidazole 100 ml @ 100 mls/hr Q8H IVPB 07/31/17 00:00 08/07/17 00:00 08/01/17 08:00 Morphine Sulfate (Morphine Sulfate) 4 mg Q4H PRN IVP Severe Pain (Pain Scale 7-10) 07/30/17 10:15 08/05/17 18:14 07/30/17 14:47 Ondansetron HCl (Zofran) 4 mg Q6H PRN IVP Nausea & Vomiting 07/30/17 12:15 08/28/17 18:14 Pantoprazole (Protonix) 40 mg EVERY 12 HOURS IVP 07/30/17 09:00 08/28/17 22:59 08/01/17 09:05 Polyethylene Glycol (Miralax) 17 gm DAILYPRN PRN ORAL Constipation 07/30/17 18:15 08/28/17 18:14 Potassium Chloride 40 meq/ Sodium Chloride 570 ml @ 142.5 mls/ hr ONCE ONCE IVPB 08/01/17 09:00 08/01/17 12:59 UNV Potassium Chloride (K-Dur) 40 meq TWICE A DAY ORAL 07/31/17 09:00 08/30/17 08:59 08/01/17 09:05 Quetiapine Fumarate (SEROquel) 100 mg TID ORAL 07/30/17 22:00 08/29/17 21:59 08/01/17 09:05 Vancomycin HCl (Vanco rx to dose) 1 ea DAILY PRN MISC PER RX PROTOCOL 07/31/17 12:15 08/30/17 12:14 Vancomycin HCl 1 gm/Dextrose 275 ml @ 183.708 mls/hr Q8HR@0200,1000,1800 IVPB 07/31/17 18:00 08/05/17 17:59 08/01/17 10:39 Aziza Sosa M.D. Aug 01, 2017 11:26
[2017-08-01 12:00] VITALS: BP 111/63
--- NOTE | 2017-08-01 14:35 | Diagnostic Imaging Report ---
APPROVED REPORT CPT Code: 28133 Present Symptoms Shortness of breath BILATERAL: Imaging reveals a patent deep venous system bilaterally. There is no evidence of thrombus within the femoral, popliteal or tibial segments. The greater saphenous veins are also within normal limits. Doppler indicates normal spontaneous flow within these segments.
--- NOTE | 2017-08-01 15:04 | General Progress Note ---
Assessment/Plan Status: stable Assessment/Plan MDD seroquel [email or web address] Subjective Neurologic/Psychiatric: Reports: anxiety, depressed, emotional problems Allergies: Coded Allergies: MORPHINE (Verified Allergy, Unknown, 07/31/17) Per patient statement, she is allergic to morphine. Subjective the pt is 1:1 asleep no interested in eval not engaged. the pt aao Objective Last 24 Hour Vital Signs Date Time Temp Pulse Resp B/P (MAP) Pulse Ox O2 Delivery O2 Flow Rate FiO2 08/01/17 13:03 97.7 08/01/17 12:15 91 08/01/17 12:00 97.9 86 18 111/63 95 08/01/17 08:00 97.7 76 19 115/71 95 Venturi Mask 10.0 45 08/01/17 08:00 73 08/01/17 07:30 Venturi Mask 10.0 45 08/01/17 07:30 74 22 Venturi Mask 10.0 45 08/01/17 07:30 99 Venturi Mask 10.0 45 08/01/17 04:00 97.5 83 26 115/71 100 Venturi Mask 10.0 45 08/01/17 04:00 81 08/01/17 00:47 98.1 08/01/17 00:03 98.1 86 28 133/85 99 Venturi Mask 10.0 45 08/01/17 00:00 93 07/31/17 20:00 99 07/31/17 20:00 98.6 106 26 122/64 94 Venturi Mask 10.0 45 07/31/17 19:49 Venturi Mask 10.0 45 07/31/17 19:49 95 Venturi Mask 10.0 45 07/31/17 19:48 107 22 Venturi Mask 10.0 45 07/31/17 16:00 99.1 96 18 120/73 96 Venturi Mask 10.0 45 07/31/17 16:00 96 Intake and Output 08/01/17 08/02/17 19:00 07:00 Intake Total 522.416 ml Balance 522.416 ml IV Total 522.416 ml Laboratory Tests 08/01/17 03:21: White Blood Count 11.3H, Red Blood Count 3.20L, Hemoglobin 10.1L, Hematocrit 31.7L, Mean Corpuscular Volume 99, Mean Corpuscular Hemoglobin 31.4H, Mean Corpuscular Hemoglobin Concent 31.7L, Red Cell Distribution Width 13.4, Platelet Count 376, Mean Platelet Volume 5.6L, Neutrophils (%) (Auto) 65.4, Lymphocytes (%) (Auto) 23.2, Monocytes (%) (Auto) 9.6, Eosinophils (%) (Auto) 1.2, Basophils (%) (Auto) 0.6, Erythrocyte Sedimentation Rate 112H, Sodium Level 146H, Potassium Level 3.1L, Chloride Level 110H, Carbon Dioxide Level 27, Anion Gap 9, Blood Urea Nitrogen 4L, Creatinine 0.8, Estimat Glomerular Filtration Rate > 60, Glucose Level 124H, Calcium Level 8.4L, Phosphorus Level 2.5, Magnesium Level 2.0, Total Bilirubin 0.6, Aspartate Amino Transf (AST/SGOT ) 13L, Alanine Aminotransferase (ALT/SGPT) 12, Alkaline Phosphatase 91, Total Protein 5.7L, Albumin 1.8L, Globulin 3.9, Albumin/Globulin Ratio 0.5L 08/01/17 09:30: White Blood Count 9.5, Red Blood Count 3.56L, Hemoglobin 11.2L, Hematocrit 35.1L , Mean Corpuscular Volume 99, Mean Corpuscular Hemoglobin 31.5H, Mean Corpuscular Hemoglobin Concent 31.9L, Red Cell Distribution Width 13.0, Platelet Count 420, Mean Platelet Volume 5.6L, Neutrophils (%) (Auto) 64.5, Lymphocytes (%) (Auto) 28.4, Monocytes (%) (Auto) 4.5, Eosinophils (%) (Auto) 1.9, Basophils (%) (Auto) 0.7, Sodium Level 147H, Potassium Level 3.4L, Chloride Level 111H, Carbon Dioxide Level 26, Anion Gap 10, Blood Urea Nitrogen 5L, Creatinine 1.0, Estimat Glomerular Filtration Rate > 60, Glucose Level 140H , Calcium Level 8.5, Pro-B-Type Natriuretic Peptide 351H Height (Feet): 5 Height (Inches): 3.00 Weight (Pounds): 176 General Appearance: WD/WN, no apparent distress, alert, overweight Neurologic: alert, oriented x 3, responsive, depressed affect Shweta Cervantes M.D. Aug 01, 2017 15:04
[2017-08-01 16:00] VITALS: BP 121/64
--- NOTE | 2017-08-01 16:28 | Diagnostic Imaging Report ---
Indication: SOB Technique: One view of the chest Comparison: 07/29/2017 Findings: There is bilateral diffuse interstitial and alveolar edema again demonstrated, essentially unchanged. The heart remains borderline enlarged. Pleural spaces remain clear.. Impression: Unchanged, over one day, findings as above.
[2017-08-01 20:00] VITALS: BP 114/68
--- NOTE | 2017-08-01 21:37 | General Progress Note ---
Assessment/Plan Assessment/Plan Assessment - abdominal pain - possibly due to gastric ulcer - diarrhea - C Diff (-) - Leukocytosis - better - s/p RAVIN 2011 - recurrent anastamotic GJ ulcer - chronic abd pain complaints Recommendations - continue abx - d/c contact isolation - push po - PPI Subjective Allergies: Coded Allergies: MORPHINE (Verified Allergy, Unknown, 07/31/17) Per patient statement, she is allergic to morphine. Subjective above noted no new symptoms tolerating PO WBC lower Objective Last 24 Hour Vital Signs Date Time Temp Pulse Resp B/P (MAP) Pulse Ox O2 Delivery O2 Flow Rate FiO2 08/01/17 20:00 88 08/01/17 20:00 98.6 88 28 114/68 95 Nasal Cannula 2.0 08/01/17 18:59 98.2 08/01/17 16:00 98.2 85 19 121/64 96 08/01/17 16:00 90 08/01/17 12:15 91 08/01/17 12:00 97.9 86 18 111/63 95 08/01/17 08:00 97.7 76 19 115/71 95 Venturi Mask 10.0 45 08/01/17 08:00 73 08/01/17 07:30 Venturi Mask 10.0 45 08/01/17 07:30 74 22 Venturi Mask 10.0 45 08/01/17 07:30 99 Venturi Mask 10.0 45 08/01/17 04:00 97.5 83 26 115/71 100 Venturi Mask 10.0 45 08/01/17 04:00 81 08/01/17 00:47 98.1 08/01/17 00:03 98.1 86 28 133/85 99 Venturi Mask 10.0 45 08/01/17 00:00 93 Intake and Output 08/01/17 08/02/17 19:00 07:00 Intake Total 1222.416 ml Balance 1222.416 ml Intake Oral 700 ml IV Total 522.416 ml # Voids 2 # Bowel Movements 3 Laboratory Tests 08/01/17 03:21: White Blood Count 11.3H, Red Blood Count 3.20L, Hemoglobin 10.1L, Hematocrit 31.7L, Mean Corpuscular Volume 99, Mean Corpuscular Hemoglobin 31.4H, Mean Corpuscular Hemoglobin Concent 31.7L, Red Cell Distribution Width 13.4, Platelet Count 376, Mean Platelet Volume 5.6L, Neutrophils (%) (Auto) 65.4, Lymphocytes (%) (Auto) 23.2, Monocytes (%) (Auto) 9.6, Eosinophils (%) (Auto) 1.2, Basophils (%) (Auto) 0.6, Erythrocyte Sedimentation Rate 112H, Sodium Level 146H, Potassium Level 3.1L, Chloride Level 110H, Carbon Dioxide Level 27, Anion Gap 9, Blood Urea Nitrogen 4L, Creatinine 0.8, Estimat Glomerular Filtration Rate > 60, Glucose Level 124H, Calcium Level 8.4L, Phosphorus Level 2.5, Magnesium Level 2.0, Total Bilirubin 0.6, Aspartate Amino Transf (AST/SGOT ) 13L, Alanine Aminotransferase (ALT/SGPT) 12, Alkaline Phosphatase 91, Total Protein 5.7L, Albumin 1.8L, Globulin 3.9, Albumin/Globulin Ratio 0.5L 08/01/17 09:30: White Blood Count 9.5, Red Blood Count 3.56L, Hemoglobin 11.2L, Hematocrit 35.1L , Mean Corpuscular Volume 99, Mean Corpuscular Hemoglobin 31.5H, Mean Corpuscular Hemoglobin Concent 31.9L, Red Cell Distribution Width 13.0, Platelet Count 420, Mean Platelet Volume 5.6L, Neutrophils (%) (Auto) 64.5, Lymphocytes (%) (Auto) 28.4, Monocytes (%) (Auto) 4.5, Eosinophils (%) (Auto) 1.9, Basophils (%) (Auto) 0.7, Sodium Level 147H, Potassium Level 3.4L, Chloride Level 111H, Carbon Dioxide Level 26, Anion Gap 10, Blood Urea Nitrogen 5L, Creatinine 1.0, Estimat Glomerular Filtration Rate > 60, Glucose Level 140H , Calcium Level 8.5, Pro-B-Type Natriuretic Peptide 351H 08/01/17 17:00: Vancomycin Level Trough 21.3H Height (Feet): 5 Height (Inches): 3.00 Weight (Pounds): 176 Objective Elderly AA woman NCAT supple coarse BS RR abd soft and flat, but mild diffuse TTP during exam no edema awake and alert JOSE CHAPARRO Aug 01, 2017 21:37
[2017-08-02 00:07] VITALS: BP 117/74
[2017-08-02 04:00] VITALS: BP 120/73
[2017-08-02 05:22] LABS: BASOPHILS % (AUTO) 1.2 % (0.0-2.0); EOSINOPHILS % (AUTO) 2.8 % (0.0-3.0); LYMPHOCYTES % (AUTO) 38.5 % (20.0-45.0); MEAN CORPUSCULAR HEMOGLOBIN 31.8 PG (27.0-31.0); MEAN CORPUSCULAR HGB CONC 31.8 G/DL (32.0-36.0); MEAN CORPUSCULAR VOLUME 100 FL (80-99); MEAN PLATELET VOLUME 5.5 FL (6.5-10.1); MONOCYTES % (AUTO) 9.3 % (1.0-10.0); NEUTROPHILS % (AUTO) 48.1 % (45.0-75.0); PLATELET COUNT 409 K/UL (150-450); RED BLOOD COUNT 3.31 M/UL (4.20-5.40); RED CELL DISTRIBUTION WIDTH 13.6 % (11.6-14.8); WHITE BLOOD COUNT 9.8 K/UL (4.8-10.8)
[2017-08-02] MEDS: Levothyroxine 125mcg tab ORAL SCH (05:39)
[2017-08-02] MEDS: Vancomycin 750mg/NS 250ml 250 ML IVPB SCH ×3 (05:39→21:16)
[2017-08-02] MEDS: HYDROmorphone 4mg tab ORAL SCH ×4 (06:01→17:21)
[2017-08-02 06:05] LABS: ALANINE AMINOTRANSFERASE 7 U/L (12-78); ALBUMIN/GLOBULIN RATIO 0.5 (1.0-2.7); ANION GAP 9 mmol/L (5-15); ASPARTATE AMINO TRANSFERASE 11 U/L (15-37); CALCIUM 8.4 MG/DL (8.5-10.1); CARBON DIOXIDE 26 MMOL/L (21-32); CHLORIDE 111 MMOL/L (98-107); CREATININE 0.8 MG/DL (0.55-1.30); GLOMERULAR FILTRATION RATE > 60 mL/min (>60); POTASSIUM 3.3 MMOL/L (3.5-5.1); SODIUM 146 MMOL/L (136-145); TOTAL PROTEIN 5.7 G/DL (6.4-8.2)
[2017-08-02 08:00] VITALS: BP_SYST 120; BP_SYST 139; BP_DIAS 73; BP_DIAS 79
[2017-08-02] MEDS: Pantoprazole Inj IVP SCH ×2 (08:27→20:04)
[2017-08-02] MEDS: Cefepime HCl 2 GM in D5W 55 ML IV SCH ×2 (08:27→20:04)
[2017-08-02] MEDS: Heparin 5000 units/ml inj SUBQ SCH ×2 (08:32→20:05)
[2017-08-02] MEDS: ALPRAZolam 0.5mg tab ORAL SCH ×3 (08:32→17:19)
--- NOTE | 2017-08-02 09:40 | Infectious Diseases Prog Note ---
Assessment/Plan Assessment/Plan Abx: IV Vanco 07/29- Cefepime 07/29- Metronidazole 07/31- Assesment: SOB- possibly multifactorial due to CHF, possible PNA -CXR: Bilateral diffuse infiltrates versus edema-correlate with clinical findings. Leukocytosis, improving -afebrile Hx Cdiff -Negative C Diff 04/18/17 at [facility]) and at this admission Abd pain- r/o recurrent ulcer' SP EGD 08/01 : anastomotic ulcers x 3 gastric bypass with hx of anastomosis ulceration, chronic low back pain, thyroid disease, GERD MDD Plan: -Continue IV Vanco and Cefepime d# 5 / 7 -DC Flagyl d# 3 -f/u cx -Monitor CBC/BMP, temperatures -Aspiration precautions Subjective Constitutional: Denies: no symptoms, fever, chills, fatigue, anorexia, drenching sweats, other Allergies: Coded Allergies: MORPHINE (Verified Allergy, Unknown, 07/31/17) Per patient statement, she is allergic to morphine. Objective Vital Signs Last 24 Hour Vital Signs Date Time Temp Pulse Resp B/P (MAP) Pulse Ox O2 Delivery O2 Flow Rate FiO2 08/02/17 08:00 105 08/02/17 07:00 98.6 08/02/17 06:30 Nasal Cannula 2.0 28 08/02/17 06:30 74 18 Nasal Cannula 2.0 08/02/17 06:30 95 Nasal Cannula 2.0 28 08/02/17 04:00 79 08/02/17 04:00 98.6 78 26 120/73 96 Nasal Cannula 2.0 08/02/17 00:07 98.4 77 28 117/74 96 Nasal Cannula 2.0 08/02/17 00:00 87 08/01/17 21:54 99 Nasal Cannula 2.0 28 08/01/17 21:54 76 20 Nasal Cannula 2.0 28 08/01/17 21:54 Nasal Cannula 2.0 28 08/01/17 20:00 88 08/01/17 20:00 98.6 88 28 114/68 95 Nasal Cannula 2.0 08/01/17 16:00 98.2 85 19 121/64 96 08/01/17 16:00 90 08/01/17 12:15 91 08/01/17 12:00 97.9 86 18 111/63 95 Height (Feet): 5 Height (Inches): 3.00 Weight (Pounds): 176 HEENT: mucous membranes moist Respiratory/Chest: normal breath sounds Cardiovascular: regular rhythm Abdomen: non distended Microbiology Date/Time Source Procedure Growth Status 08/01/17 09:30 Stool Clostridium difficile Toxin Assay - Final Complete Laboratory Tests Test 08/01/17 17:00 08/02/17 03:45 Vancomycin Level Trough 21.3 ug/mL (5.0-12.0) H White Blood Count 9.8 K/UL (4.8-10.8) Red Blood Count 3.31 M/UL (4.20-5.40) L Hemoglobin 10.5 G/DL (12.0-16.0) L Hematocrit 33.1 % (37.0-47.0) L Mean Corpuscular Volume 100 FL (80-99) H Mean Corpuscular Hemoglobin 31.8 PG (27.0-31.0) H Mean Corpuscular Hemoglobin Concent 31.8 G/DL (32.0-36.0) L Red Cell Distribution Width 13.6 % (11.6-14.8) Platelet Count 409 K/UL (150-450) Mean Platelet Volume 5.5 FL (6.5-10.1) L Neutrophils (%) (Auto) 48.1 % (45.0-75.0) Lymphocytes (%) (Auto) 38.5 % (20.0-45.0) Monocytes (%) (Auto) 9.3 % (1.0-10.0) Eosinophils (%) (Auto) 2.8 % (0.0-3.0) Basophils (%) (Auto) 1.2 % (0.0-2.0) Sodium Level 146 MMOL/L (136-145) H Potassium Level 3.3 MMOL/L (3.5-5.1) L Chloride Level 111 MMOL/L (98-107) H Carbon Dioxide Level 26 MMOL/L (21-32) Anion Gap 9 mmol/L (5-15) Blood Urea Nitrogen 3 mg/dL (7-18) L Creatinine 0.8 MG/DL (0.55-1.30) Estimat Glomerular Filtration Rate > 60 mL/min (>60) Glucose Level 96 MG/DL (74-106) Calcium Level 8.4 MG/DL (8.5-10.1) L Total Bilirubin 0.4 MG/DL (0.2-1.0) Aspartate Amino Transf (AST/SGOT) 11 U/L (15-37) L Alanine Aminotransferase (ALT/SGPT) 7 U/L (12-78) L Alkaline Phosphatase 80 U/L (46-116) Pro-B-Type Natriuretic Peptide 101 pg/mL (0-125) Total Protein 5.7 G/DL (6.4-8.2) L Albumin 1.8 G/DL (3.4-5.0) L Globulin 3.9 g/dL Albumin/Globulin Ratio 0.5 (1.0-2.7) L Current Medications Medications (Trade) Dose Ordered Sig/Donald Route PRN Reason Start Time Stop Time Status Last Admin Dose Admin Acetaminophen (Tylenol) 650 mg Q4H PRN ORAL FEVER 07/30/17 10:15 08/28/17 18:14 07/31/17 23:48 Albuterol/ Ipratropium (Albuterol/ Ipratropium) 3 ml Q4H PRN HHN Shortness of Breath 07/30/17 10:15 08/03/17 18:14 Alprazolam (Xanax) 0.5 mg THREE TIMES A DAY ORAL 07/30/17 13:00 08/06/17 12:59 08/02/17 08:32 Cefepime HCl 2 gm/ Dextrose 55 ml @ 110 mls/hr EVERY 12 HOURS IV 07/30/17 09:00 08/05/17 20:29 08/02/17 08:27 Dextrose (Dextrose 50%) STAT PRN IV Hypoglycemia 07/30/17 18:15 08/28/17 18:14 Gabapentin (Neurontin) 600 mg Q8HR ORAL 07/30/17 14:00 08/28/17 21:59 08/02/17 05:40 Heparin Sodium (Porcine) (Heparin 5000 units/ml) 5,000 units EVERY 12 HOURS SUBQ 07/30/17 09:00 08/28/17 20:59 08/02/17 08:32 Hydromorphone HCl (Dilaudid) 4 mg Q6HR ORAL 07/30/17 12:00 08/05/17 19:29 08/02/17 06:01 Levothyroxine Sodium (Synthroid) 125 mcg ACBREAKFAST ORAL 07/31/17 06:30 08/29/17 06:29 08/02/17 05:39 Lorazepam (Ativan 2mg/ml 1ml) 2 mg Q6H PRN IV For Breakthrough Anxiety 07/30/17 12:15 08/06/17 12:14 Metronidazole 100 ml @ 100 mls/hr Q8H IVPB 07/31/17 00:00 08/07/17 00:00 08/02/17 08:26 Morphine Sulfate (Morphine Sulfate) 4 mg Q4H PRN IVP Severe Pain (Pain Scale 7-10) 07/30/17 10:15 08/05/17 18:14 07/30/17 14:47 Ondansetron HCl (Zofran) 4 mg Q6H PRN IVP Nausea & Vomiting 07/30/17 12:15 08/28/17 18:14 Pantoprazole (Protonix) 40 mg EVERY 12 HOURS IVP 07/30/17 09:00 08/28/17 22:59 08/02/17 08:27 Polyethylene Glycol (Miralax) 17 gm DAILYPRN PRN ORAL Constipation 07/30/17 18:15 08/28/17 18:14 Potassium Chloride (K-Dur) 40 meq DAILY ORAL 08/02/17 09:00 08/30/17 08:59 08/02/17 08:28 Quetiapine Fumarate (SEROquel) 100 mg TID ORAL 07/30/17 22:00 08/29/17 21:59 08/02/17 08:34 Vancomycin HCl (Vanco rx to dose) 1 ea DAILY PRN MISC PER RX PROTOCOL 07/31/17 12:15 08/30/17 12:14 Vancomycin/Sodium Chloride 250 ml @ 166.667 mls/hr Q8HR IVPB 08/02/17 06:00 08/07/17 05:59 08/02/17 05:39 SEEMA AKHTAR M.D. Aug 02, 2017 09:40
--- NOTE | 2017-08-02 10:17 | Cardiology Progress Note ---
Assessment/Plan Assessment/Plan 1. Bilateral pulmonary infiltrates. 2. Abdominal pain. 3. History of peptic ulcer disease 4. hypokalemia 5. diastolic failure ? bnp normal bp is fine no fever wbc is normal now trops neg in isolation now cxr improved tele neg will repeat trop and ekg Subjective Cardiovascular: Reports: chest pain Respiratory: Denies: shortness of breath - some Gastrointestinal/Abdominal: Reports: abdominal pain Genitourinary: Denies: burning Objective Last 24 Hour Vital Signs Date Time Temp Pulse Resp B/P (MAP) Pulse Ox O2 Delivery O2 Flow Rate FiO2 08/02/17 08:00 98.2 107 26 120/73 98 Nasal Cannula 2.0 08/02/17 08:00 97.7 107 22 139/79 91 Nasal Cannula 2.0 08/02/17 08:00 105 08/02/17 07:00 98.6 08/02/17 06:30 Nasal Cannula 2.0 28 08/02/17 06:30 74 18 Nasal Cannula 2.0 28 08/02/17 06:30 95 Nasal Cannula 2.0 28 08/02/17 04:00 79 08/02/17 04:00 98.6 78 26 120/73 96 Nasal Cannula 2.0 08/02/17 00:07 98.4 77 28 117/74 96 Nasal Cannula 2.0 08/02/17 00:00 87 08/01/17 21:54 99 Nasal Cannula 2.0 28 08/01/17 21:54 76 20 Nasal Cannula 2.0 28 08/01/17 21:54 Nasal Cannula 2.0 28 08/01/17 20:00 88 08/01/17 20:00 98.6 88 28 114/68 95 Nasal Cannula 2.0 08/01/17 16:00 98.2 85 19 121/64 96 08/01/17 16:00 90 08/01/17 12:15 91 08/01/17 12:00 97.9 86 18 111/63 95 General Appearance: alert Neck: supple Cardiovascular: normal rate, regular rhythm Respiratory/Chest: chest wall non-tender, lungs clear, normal breath sounds Abdomen: soft, tender - mild Extremities: no swelling Laboratory Tests Test 08/01/17 17:00 08/02/17 03:45 Vancomycin Level Trough 21.3 ug/mL (5.0-12.0) H White Blood Count 9.8 K/UL (4.8-10.8) Red Blood Count 3.31 M/UL (4.20-5.40) L Hemoglobin 10.5 G/DL (12.0-16.0) L Hematocrit 33.1 % (37.0-47.0) L Mean Corpuscular Volume 100 FL (80-99) H Mean Corpuscular Hemoglobin 31.8 PG (27.0-31.0) H Mean Corpuscular Hemoglobin Concent 31.8 G/DL (32.0-36.0) L Red Cell Distribution Width 13.6 % (11.6-14.8) Platelet Count 409 K/UL (150-450) Mean Platelet Volume 5.5 FL (6.5-10.1) L Neutrophils (%) (Auto) 48.1 % (45.0-75.0) Lymphocytes (%) (Auto) 38.5 % (20.0-45.0) Monocytes (%) (Auto) 9.3 % (1.0-10.0) Eosinophils (%) (Auto) 2.8 % (0.0-3.0) Basophils (%) (Auto) 1.2 % (0.0-2.0) Sodium Level 146 MMOL/L (136-145) H Potassium Level 3.3 MMOL/L (3.5-5.1) L Chloride Level 111 MMOL/L (98-107) H Carbon Dioxide Level 26 MMOL/L (21-32) Anion Gap 9 mmol/L (5-15) Blood Urea Nitrogen 3 mg/dL (7-18) L Creatinine 0.8 MG/DL (0.55-1.30) Estimat Glomerular Filtration Rate > 60 mL/min (>60) Glucose Level 96 MG/DL (74-106) Calcium Level 8.4 MG/DL (8.5-10.1) L Total Bilirubin 0.4 MG/DL (0.2-1.0) Aspartate Amino Transf (AST/SGOT) 11 U/L (15-37) L Alanine Aminotransferase (ALT/SGPT) 7 U/L (12-78) L Alkaline Phosphatase 80 U/L (46-116) Pro-B-Type Natriuretic Peptide 101 pg/mL (0-125) Total Protein 5.7 G/DL (6.4-8.2) L Albumin 1.8 G/DL (3.4-5.0) L Globulin 3.9 g/dL Albumin/Globulin Ratio 0.5 (1.0-2.7) L Microbiology Date/Time Source Procedure Growth Status 08/01/17 09:30 Stool Stool Culture - Preliminary NORMAL FECAL J LUIS. Resulted 08/01/17 09:30 Stool Clostridium difficile Toxin Assay - Final Complete YAW WALLACE Aug 02, 2017 10:17
--- NOTE | 2017-08-02 11:06 | Diagnostic Imaging Report ---
Indication: Dyspnea Comparison: 08/01/17 A single view chest radiograph was obtained. Findings: Patchy interstitial infiltrates versus edema noted without change. Heart is enlarged. Impression: Interstitial edema without pattern changer and repairer one-day
--- NOTE | 2017-08-02 11:25 | Pulmonology Progress Note ---
Assessment/Plan Assessment/Plan ASSESSMENT PNA PUD abdominal pain 2 to PUD s/p EGD 07/31 hx of gastric bypass hypokalemia mild pulmonary HTN MDD possible malnutrition PLAN OF CARE [facility] abx ID follows CXR with bilateral infiltrates vs edema, repeated - without change leukocytosis resolved sputum cx if able O2 titrate to keep sat above 92%, downgraded to O2 via NC HHN Venous Duplex BLE cardio follows troponin negative s/p Lasix x 1 fup with CXR pro BNP down to 101 ECHO with pEF 60-65% and RVSP of 44 c/w mild pulmonary HTN s/p EGD 07/31 with findings of 3 anastomotic ulcers, HH, but no active bleeding started on PPI and Carafate stool for C dif and stool cx - both negative pain management lytes stable after replacement psych follows, psych meds as per psych management DVT prophayxlis dietary eval dc plan case discussed and evaluated by supervising physician Subjective Allergies: Coded Allergies: MORPHINE (Verified Allergy, Unknown, 07/31/17) Per patient statement, she is allergic to morphine. Subjective leukocytosis resolved , afebrile was able to downgraded to o2 via NC reports SOB, and chest pain intermittent associated with breathing Objective Last 24 Hour Vital Signs Date Time Temp Pulse Resp B/P (MAP) Pulse Ox O2 Delivery O2 Flow Rate FiO2 08/02/17 08:00 98.2 107 26 120/73 98 Nasal Cannula 2.0 08/02/17 08:00 97.7 107 22 139/79 91 Nasal Cannula 2.0 08/02/17 08:00 105 08/02/17 07:00 98.6 08/02/17 06:30 Nasal Cannula 2.0 28 08/02/17 06:30 74 18 Nasal Cannula 2.0 28 08/02/17 06:30 95 Nasal Cannula 2.0 28 08/02/17 04:00 79 08/02/17 04:00 98.6 78 26 120/73 96 Nasal Cannula 2.0 08/02/17 00:07 98.4 77 28 117/74 96 Nasal Cannula 2.0 08/02/17 00:00 87 08/01/17 21:54 99 Nasal Cannula 2.0 28 08/01/17 21:54 76 20 Nasal Cannula 2.0 28 08/01/17 21:54 Nasal Cannula 2.0 28 08/01/17 20:00 88 08/01/17 20:00 98.6 88 28 114/68 95 Nasal Cannula 2.0 08/01/17 16:00 98.2 85 19 121/64 96 08/01/17 16:00 90 08/01/17 12:15 91 08/01/17 12:00 97.9 86 18 111/63 95 Objective General Appearance: no acute distress HEENT: normocephalic, atraumatic, anicteric, other - O2 via NC Respiratory/Chest: no respiratory distress, decreased breath sounds Cardiovascular: normal peripheral pulses, normal rate, SR, occasional low ST ( below 110) Abdomen: soft, non tender, non distended Extremities: no edema Neurologic/Psychiatric: alert, oriented x 3 Musculoskeletal: normal muscle bulk Microbiology Date/Time Source Procedure Growth Status 08/01/17 09:30 Stool Stool Culture - Preliminary NORMAL FECAL J LUIS. Resulted 08/01/17 09:30 Stool Clostridium difficile Toxin Assay - Final Complete Laboratory Tests 08/01/17 17:00: Vancomycin Level Trough 21.3H 08/02/17 03:45: White Blood Count 9.8, Red Blood Count 3.31L, Hemoglobin 10.5L, Hematocrit 33.1L , Mean Corpuscular Volume 100H, Mean Corpuscular Hemoglobin 31.8H, Mean Corpuscular Hemoglobin Concent 31.8L, Red Cell Distribution Width 13.6, Platelet Count 409, Mean Platelet Volume 5.5L, Neutrophils (%) (Auto) 48.1, Lymphocytes (%) (Auto) 38.5, Monocytes (%) (Auto) 9.3, Eosinophils (%) (Auto) 2.8, Basophils (%) (Auto) 1.2, Sodium Level 146H, Potassium Level 3.3L, Chloride Level 111H, Carbon Dioxide Level 26, Anion Gap 9, Blood Urea Nitrogen 3L, Creatinine 0.8, Estimat Glomerular Filtration Rate > 60, Glucose Level 96, Calcium Level 8.4L, Total Bilirubin 0.4, Aspartate Amino Transf (AST/SGOT) 11L, Alanine Aminotransferase (ALT/SGPT) 7L, Alkaline Phosphatase 80, Pro-B-Type Natriuretic Peptide 101, Total Protein 5.7L, Albumin 1.8L, Globulin 3.9, Albumin /Globulin Ratio 0.5L Current Medications Medications (Trade) Dose Ordered Sig/Donald Route PRN Reason Start Time Stop Time Status Last Admin Dose Admin Acetaminophen (Tylenol) 650 mg Q4H PRN ORAL FEVER 07/30/17 10:15 08/28/17 18:14 07/31/17 23:48 Albuterol/ Ipratropium (Albuterol/ Ipratropium) 3 ml Q4H PRN HHN Shortness of Breath 07/30/17 10:15 08/03/17 18:14 Alprazolam (Xanax) 0.5 mg THREE TIMES A DAY ORAL 07/30/17 13:00 08/06/17 12:59 08/02/17 08:32 Cefepime HCl 2 gm/ Dextrose 55 ml @ 110 mls/hr EVERY 12 HOURS IV 07/30/17 09:00 08/05/17 20:29 08/02/17 08:27 Dextrose (Dextrose 50%) STAT PRN IV Hypoglycemia 07/30/17 18:15 08/28/17 18:14 Gabapentin (Neurontin) 600 mg Q8HR ORAL 07/30/17 14:00 08/28/17 21:59 08/02/17 05:40 Heparin Sodium (Porcine) (Heparin 5000 units/ml) 5,000 units EVERY 12 HOURS SUBQ 07/30/17 09:00 08/28/17 20:59 08/02/17 08:32 Hydromorphone HCl (Dilaudid) 4 mg Q6HR ORAL 07/30/17 12:00 08/05/17 19:29 08/02/17 06:01 Levothyroxine Sodium (Synthroid) 125 mcg ACBREAKFAST ORAL 07/31/17 06:30 08/29/17 06:29 08/02/17 05:39 Lorazepam (Ativan 2mg/ml 1ml) 2 mg Q6H PRN IV For Breakthrough Anxiety 07/30/17 12:15 08/06/17 12:14 Morphine Sulfate (Morphine Sulfate) 4 mg Q4H PRN IVP Severe Pain (Pain Scale 7-10) 07/30/17 10:15 08/05/17 18:14 07/30/17 14:47 Ondansetron HCl (Zofran) 4 mg Q6H PRN IVP Nausea & Vomiting 07/30/17 12:15 08/28/17 18:14 Pantoprazole (Protonix) 40 mg EVERY 12 HOURS IVP 07/30/17 09:00 08/28/17 22:59 08/02/17 08:27 Polyethylene Glycol (Miralax) 17 gm DAILYPRN PRN ORAL Constipation 07/30/17 18:15 08/28/17 18:14 Potassium Chloride (K-Dur) 40 meq DAILY ORAL 08/02/17 09:00 08/30/17 08:59 08/02/17 08:28 Quetiapine Fumarate (SEROquel) 100 mg TID ORAL 07/30/17 22:00 08/29/17 21:59 08/02/17 08:34 Vancomycin HCl (Vanco rx to dose) 1 ea DAILY PRN MISC PER RX PROTOCOL 07/31/17 12:15 08/30/17 12:14 Vancomycin/Sodium Chloride 250 ml @ 166.667 mls/hr Q8HR IVPB 08/02/17 06:00 08/07/17 05:59 08/02/17 05:39 Daisy Mace NP (Vanchtein) Aug 02, 2017 11:25
[2017-08-02 12:00] VITALS: BP 119/76
[2017-08-02 16:00] VITALS: BP 114/71
--- NOTE | 2017-08-02 16:21 | Cardiology Report ---
APPROVED REPORT EKG Measurement Heart [id number] Normal sinus rhythm Possible Left atrial enlargement RSR' or QR pattern in V1 suggests right ventricular conduction delay Nonspecific T wave abnormality Prolonged QT Abnormal ECG
[2017-08-02 20:00] VITALS: BP 127/84
[2017-08-02] MEDS ORDERED: NS 500ML ONE (20:12)
[2017-08-02] MEDS ORDERED: Tubing IV Secondary IV ONE (20:12)
--- NOTE | 2017-08-02 20:45 | General Progress Note ---
Assessment/Plan Assessment/Plan Assessment - abdominal pain - possibly due to gastric ulcer - diarrhea - C Diff (-) - Leukocytosis - better - s/p RAVIN 2011 - recurrent anastamotic GJ ulcer - chronic abd pain complaints Recommendations - continue abx - push po - PPI BID - Carafate QID Subjective Allergies: Coded Allergies: MORPHINE (Verified Allergy, Unknown, 07/31/17) Per patient statement, she is allergic to morphine. Subjective above noted no new symptoms tolerating PO pain better Objective Last 24 Hour Vital Signs Date Time Temp Pulse Resp B/P (MAP) Pulse Ox O2 Delivery O2 Flow Rate FiO2 08/02/17 20:00 98.1 67 20 127/84 100 Nasal Cannula 2.0 08/02/17 19:24 85 20 Nasal Cannula 2.0 28 08/02/17 19:24 Nasal Cannula 2.0 28 08/02/17 19:24 94 Nasal Cannula 2.0 28 08/02/17 18:20 98.2 08/02/17 16:00 98.2 69 20 114/71 99 Nasal Cannula 2.0 08/02/17 16:00 90 08/02/17 12:00 98.8 86 20 119/76 93 Nasal Cannula 1.0 08/02/17 12:00 89 08/02/17 08:00 98.2 107 26 120/73 98 Nasal Cannula 2.0 08/02/17 08:00 97.7 107 22 139/79 91 Nasal Cannula 2.0 08/02/17 08:00 105 08/02/17 06:30 Nasal Cannula 2.0 08/02/17 06:30 74 18 Nasal Cannula 2.0 08/02/17 06:30 95 Nasal Cannula 2.0 08/02/17 04:00 79 08/02/17 04:00 98.6 78 26 120/73 96 Nasal Cannula 2.0 08/02/17 00:07 98.4 77 28 117/74 96 Nasal Cannula 2.0 08/02/17 00:00 87 08/01/17 21:54 99 Nasal Cannula 2.0 28 08/01/17 21:54 76 20 Nasal Cannula 2.0 28 08/01/17 21:54 Nasal Cannula 2.0 28 Intake and Output 08/02/17 08/03/17 19:00 07:00 Intake Total 1738.400 ml Balance 1738.400 ml Intake Oral 1250 ml IV Total 488.400 ml # Voids 3 # Bowel Movements 5 Laboratory Tests 08/02/17 03:45: White Blood Count 9.8, Red Blood Count 3.31L, Hemoglobin 10.5L, Hematocrit 33.1L , Mean Corpuscular Volume 100H, Mean Corpuscular Hemoglobin 31.8H, Mean Corpuscular Hemoglobin Concent 31.8L, Red Cell Distribution Width 13.6, Platelet Count 409, Mean Platelet Volume 5.5L, Neutrophils (%) (Auto) 48.1, Lymphocytes (%) (Auto) 38.5, Monocytes (%) (Auto) 9.3, Eosinophils (%) (Auto) 2.8, Basophils (%) (Auto) 1.2, Sodium Level 146H, Potassium Level 3.3L, Chloride Level 111H, Carbon Dioxide Level 26, Anion Gap 9, Blood Urea Nitrogen 3L, Creatinine 0.8, Estimat Glomerular Filtration Rate > 60, Glucose Level 96, Calcium Level 8.4L, Total Bilirubin 0.4, Aspartate Amino Transf (AST/SGOT) 11L, Alanine Aminotransferase (ALT/SGPT) 7L, Alkaline Phosphatase 80, Pro-B-Type Natriuretic Peptide 101, Total Protein 5.7L, Albumin 1.8L, Globulin 3.9, Albumin /Globulin Ratio 0.5L Height (Feet): 5 Height (Inches): 3.00 Weight (Pounds): 176 Objective Elderly AA woman NCAT supple coarse BS RR abd soft and flat, but mild diffuse TTP during exam no edema awake and alert JOSE CHAPARRO Aug 02, 2017 20:45
[2017-08-02] MEDS: Sucralfate 1gm tab ORAL SCH (21:16)
[2017-08-03] VITALS: BP 120/73
[2017-08-03] MEDS: HYDROmorphone 4mg tab ORAL SCH ×5 (00:16→23:58)
[2017-08-03 04:00] VITALS: BP 116/75
[2017-08-03] MEDS: Levothyroxine 125mcg tab ORAL SCH (06:19)
[2017-08-03] MEDS: Vancomycin 750mg/NS 250ml 250 ML IVPB SCH ×3 (06:26→21:53)
[2017-08-03 08:00] VITALS: BP 123/68
[2017-08-03] MEDS: Cefepime HCl 2 GM in D5W 55 ML IV SCH ×2 (08:35→20:27)
[2017-08-03] MEDS: Pantoprazole Inj IVP SCH ×2 (08:35→20:27)
[2017-08-03] MEDS: Sucralfate 1gm tab ORAL SCH ×4 (08:36→20:27)
[2017-08-03] MEDS: ALPRAZolam 0.5mg tab ORAL SCH ×3 (08:36→17:27)
[2017-08-03] MEDS: Heparin 5000 units/ml inj SUBQ SCH ×2 (08:38→20:29)
--- NOTE | 2017-08-03 10:40 | Diagnostic Imaging Report ---
Indication: Chest pain Comparison: August 02, 2017 A single view chest radiograph was obtained. Findings: Interstitial edema has slightly improved though there is still evidence of such a currently. The heart is mildly enlarged. Impression: Interstitial edema slightly improved
[2017-08-03 11:28] LABS: EOSINOPHILS % (AUTO) 2.9 % (0.0-3.0); LYMPHOCYTES % (AUTO) 36.6 % (20.0-45.0); MEAN CORPUSCULAR HEMOGLOBIN 31.2 PG (27.0-31.0); MEAN CORPUSCULAR HGB CONC 31.2 G/DL (32.0-36.0); MEAN CORPUSCULAR VOLUME 100 FL (80-99); MEAN PLATELET VOLUME 5.6 FL (6.5-10.1); MONOCYTES % (AUTO) 11.4 % (1.0-10.0); NEUTROPHILS % (AUTO) 48.1 % (45.0-75.0); PLATELET COUNT 443 K/UL (150-450); RED BLOOD COUNT 3.39 M/UL (4.20-5.40); RED CELL DISTRIBUTION WIDTH 13.5 % (11.6-14.8); WHITE BLOOD COUNT 7.7 K/UL (4.8-10.8)
--- NOTE | 2017-08-03 11:46 | Pulmonology Progress Note ---
Assessment/Plan Assessment/Plan ASSESSMENT PNA PUD likely costochondritis possible pleuritic chest pain abdominal pain 2 to PUD s/p EGD 07/31 hx of gastric bypass hypokalemia mild pulmonary HTN MDD possible malnutrition PLAN OF CARE [facility] abx ID follows CXR with bilateral infiltrates vs edema, repeated - without change leukocytosis resolved sputum cx if able O2 titrate to keep sat above 92%, downgraded to O2 via NC HHN Venous Duplex BLE cardio follows troponin negative s/p Lasix x 1 fup with CXR in am pro BNP down to 101 ECHO with pEF 60-65% and RVSP of 44 c/w mild pulmonary HTN chest pain reproducible on palpation, likely of MS origin, costochondritis, possibly also pleuritic component due to PNA s/p EGD 07/31 with findings of 3 anastomotic ulcers, HH, but no active bleeding started on PPI and Carafate stool for C dif and stool cx - both negative pain management lytes stable after replacement psych follows, psych meds as per psych management DVT prophayxlis dietary eval transfer to [facility] [place] plan fro tomorrow case discussed and evaluated by supervising physician Subjective Allergies: Coded Allergies: MORPHINE (Verified Allergy, Unknown, 07/31/17) Per patient statement, she is allergic to morphine. Subjective leukocytosis resolved , afebrile was able to downgraded to o2 via NC still reports SOB, and chest pain reproducible on palpation of chest wall and associated with breathing labs pending for this am Objective Last 24 Hour Vital Signs Date Time Temp Pulse Resp B/P (MAP) Pulse Ox O2 Delivery O2 Flow Rate FiO2 08/03/17 08:46 Nasal Cannula 2.0 28 08/03/17 08:46 97 Nasal Cannula 2.0 28 08/03/17 08:46 66 20 Nasal Cannula 2.0 28 08/03/17 08:00 100 08/03/17 08:00 98.2 99 20 123/68 98 08/03/17 04:00 69 08/03/17 04:00 98.1 72 18 116/75 100 Nasal Cannula 2.0 08/03/17 01:15 98.1 08/03/17 00:00 97.9 65 20 120/73 100 Nasal Cannula 2.0 08/03/17 00:00 83 08/02/17 20:00 98.1 67 20 127/84 100 Nasal Cannula 2.0 08/02/17 20:00 75 08/02/17 19:24 85 20 Nasal Cannula 2.0 28 08/02/17 19:24 Nasal Cannula 2.0 28 08/02/17 19:24 94 Nasal Cannula 2.0 28 08/02/17 16:00 98.2 69 20 114/71 99 Nasal Cannula 2.0 08/02/17 16:00 90 08/02/17 12:00 98.8 86 20 119/76 93 Nasal Cannula 1.0 08/02/17 12:00 89 Intake and Output 08/03/17 08/04/17 19:00 07:00 # Bowel Movements 2 Objective General Appearance: no acute distress HEENT: normocephalic, atraumatic, anicteric, O2 via NC Respiratory/Chest: no respiratory distress, decreased breath sounds, mild chest wall tenderness on palpation left side Cardiovascular: normal peripheral pulses, normal rate, SR on tele Abdomen: soft, non tender, non distended Extremities: no edema Neurologic/Psychiatric: alert, oriented x 3 Musculoskeletal: normal muscle bulk Microbiology Date/Time Source Procedure Growth Status 08/01/17 09:30 Stool Stool Culture - Preliminary Gram Negative Bacillus 1 Resulted 08/01/17 09:30 Stool Clostridium difficile Toxin Assay - Final Complete Laboratory Tests 08/03/17 11:10: White Blood Count 7.7, Red Blood Count 3.39L, Hemoglobin 10.6L, Hematocrit 33.9L , Mean Corpuscular Volume 100H, Mean Corpuscular Hemoglobin 31.2H, Mean Corpuscular Hemoglobin Concent 31.2L, Red Cell Distribution Width 13.5, Platelet Count 443, Mean Platelet Volume 5.6L, Neutrophils (%) (Auto) 48.1, Lymphocytes (%) (Auto) 36.6, Monocytes (%) (Auto) 11.4H, Eosinophils (%) (Auto) 2.9, Basophils (%) (Auto) 1.0, Sodium Level [Pending], Potassium Level [Pending] , Chloride Level [Pending], Carbon Dioxide Level [Pending], Blood Urea Nitrogen [Pending], Creatinine [Pending], Estimat Glomerular Filtration Rate [Pending], Glucose Level [Pending], Calcium Level [Pending], Magnesium Level [Pending], Troponin I [Pending], Pro-B-Type Natriuretic Peptide [Pending] Current Medications Medications (Trade) Dose Ordered Sig/Donald Route PRN Reason Start Time Stop Time Status Last Admin Dose Admin Acetaminophen (Tylenol) 650 mg Q4H PRN ORAL FEVER 07/30/17 10:15 08/28/17 18:14 07/31/17 23:48 Albuterol/ Ipratropium (Albuterol/ Ipratropium) 3 ml Q4H PRN HHN Shortness of Breath 07/30/17 10:15 08/03/17 18:14 Alprazolam (Xanax) 0.5 mg THREE TIMES A DAY ORAL 07/30/17 13:00 08/06/17 12:59 08/03/17 08:36 Cefepime HCl 2 gm/ Dextrose 55 ml @ 110 mls/hr EVERY 12 HOURS IV 07/30/17 09:00 08/05/17 20:29 08/03/17 08:35 Dextrose (Dextrose 50%) STAT PRN IV Hypoglycemia 07/30/17 18:15 08/28/17 18:14 Gabapentin (Neurontin) 600 mg Q8HR ORAL 07/30/17 14:00 08/28/17 21:59 08/03/17 06:19 Heparin Sodium (Porcine) (Heparin 5000 units/ml) 5,000 units EVERY 12 HOURS SUBQ 07/30/17 09:00 08/28/17 20:59 08/03/17 08:38 Hydromorphone HCl (Dilaudid) 4 mg Q6HR ORAL 07/30/17 12:00 08/05/17 19:29 08/03/17 06:20 Levothyroxine Sodium (Synthroid) 125 mcg ACBREAKFAST ORAL 07/31/17 06:30 08/29/17 06:29 08/03/17 06:19 Lorazepam (Ativan 2mg/ml 1ml) 2 mg Q6H PRN IV For Breakthrough Anxiety 07/30/17 12:15 08/06/17 12:14 Ondansetron HCl (Zofran) 4 mg Q6H PRN IVP Nausea & Vomiting 07/30/17 12:15 08/28/17 18:14 Pantoprazole (Protonix) 40 mg EVERY 12 HOURS IVP 07/30/17 09:00 08/28/17 22:59 08/03/17 08:35 Polyethylene Glycol (Miralax) 17 gm DAILYPRN PRN ORAL Constipation 07/30/17 18:15 08/28/17 18:14 Potassium Chloride (K-Dur) 40 meq DAILY ORAL 08/02/17 09:00 08/30/17 08:59 08/03/17 08:36 Quetiapine Fumarate (SEROquel) 100 mg TID ORAL 07/30/17 22:00 08/29/17 21:59 08/03/17 08:36 Sucralfate (Carafate) 1 gm FOUR TIMES A DAY ORAL 08/02/17 21:00 09/01/17 20:59 08/03/17 08:36 Vancomycin HCl (Vanco rx to dose) 1 ea DAILY PRN MISC PER RX PROTOCOL 07/31/17 12:15 08/30/17 12:14 Vancomycin/Sodium Chloride 250 ml @ 166.667 mls/hr Q8HR IVPB 08/02/17 06:00 08/07/17 05:59 08/03/17 06:26 Daisy Mace NP (Vanchtein) Aug 03, 2017 11:45
[2017-08-03 11:49] LABS: ANION GAP 7 mmol/L (5-15); CALCIUM 8.4 MG/DL (8.5-10.1); CARBON DIOXIDE 26 MMOL/L (21-32); CHLORIDE 112 MMOL/L (98-107); CREATININE 0.7 MG/DL (0.55-1.30); GLOMERULAR FILTRATION RATE > 60 mL/min (>60); MAGNESIUM 1.8 MG/DL (1.8-2.4); SODIUM 145 MMOL/L (136-145)
[2017-08-03 12:00] VITALS: BP 116/73
[2017-08-03] MEDS ORDERED: Albuterol/Ipratropium 3ml neb HHN PRN ×2 (12:00→16:00)
--- NOTE | 2017-08-03 13:14 | Cardiology Progress Note ---
Assessment/Plan Assessment/Plan 1. Bilateral pulmonary infiltrates. 2. Abdominal pain. 3. History of peptic ulcer disease 4. hypokalemia 5. diastolic failure ? bnp mildly elevated bp is fine no fever wbc is normal now trops neg all of them cxr improved tele neg ekg neg Subjective ROS Limited/Unobtainable: Yes Cardiovascular: Reports: [facility] on the left side just lateral to scapual adn worsens in postion Respiratory: Denies: shortness of breath Gastrointestinal/Abdominal: Denies: abdomen distended Genitourinary: Denies: burning Objective Last 24 Hour Vital Signs Date Time Temp Pulse Resp B/P (MAP) Pulse Ox O2 Delivery O2 Flow Rate FiO2 08/03/17 12:00 98.2 69 20 116/73 98 Nasal Cannula 2.0 08/03/17 08:46 Nasal Cannula 2.0 28 08/03/17 08:46 97 Nasal Cannula 2.0 28 08/03/17 08:46 66 20 Nasal Cannula 2.0 28 08/03/17 08:00 100 08/03/17 08:00 98.2 99 20 123/68 98 08/03/17 04:00 69 08/03/17 04:00 98.1 72 18 116/75 100 Nasal Cannula 2.0 08/03/17 01:15 98.1 08/03/17 00:00 97.9 65 20 120/73 100 Nasal Cannula 2.0 08/03/17 00:00 83 08/02/17 20:00 98.1 67 20 127/84 100 Nasal Cannula 2.0 08/02/17 20:00 75 08/02/17 19:24 85 20 Nasal Cannula 2.0 28 08/02/17 19:24 Nasal Cannula 2.0 28 08/02/17 19:24 94 Nasal Cannula 2.0 28 08/02/17 16:00 98.2 69 20 114/71 99 Nasal Cannula 2.0 08/02/17 16:00 90 General Appearance: no apparent distress, alert Neck: no JVD Cardiovascular: normal rate, regular rhythm Respiratory/Chest: lungs clear, normal breath sounds Abdomen: normal bowel sounds, non tender, soft Extremities: no swelling Laboratory Tests Test 08/03/17 11:10 White Blood Count 7.7 K/UL (4.8-10.8) Red Blood Count 3.39 M/UL (4.20-5.40) L Hemoglobin 10.6 G/DL (12.0-16.0) L Hematocrit 33.9 % (37.0-47.0) L Mean Corpuscular Volume 100 FL (80-99) H Mean Corpuscular Hemoglobin 31.2 PG (27.0-31.0) H Mean Corpuscular Hemoglobin Concent 31.2 G/DL (32.0-36.0) L Red Cell Distribution Width 13.5 % (11.6-14.8) Platelet Count 443 K/UL (150-450) Mean Platelet Volume 5.6 FL (6.5-10.1) L Neutrophils (%) (Auto) 48.1 % (45.0-75.0) Lymphocytes (%) (Auto) 36.6 % (20.0-45.0) Monocytes (%) (Auto) 11.4 % (1.0-10.0) H Eosinophils (%) (Auto) 2.9 % (0.0-3.0) Basophils (%) (Auto) 1.0 % (0.0-2.0) Sodium Level 145 MMOL/L (136-145) Potassium Level 4.0 MMOL/L (3.5-5.1) Chloride Level 112 MMOL/L (98-107) H Carbon Dioxide Level 26 MMOL/L (21-32) Anion Gap 7 mmol/L (5-15) Blood Urea Nitrogen 5 mg/dL (7-18) L Creatinine 0.7 MG/DL (0.55-1.30) Estimat Glomerular Filtration Rate > 60 mL/min (>60) Glucose Level 97 MG/DL (74-106) Calcium Level 8.4 MG/DL (8.5-10.1) L Magnesium Level 1.8 MG/DL (1.8-2.4) Troponin I 0.000 ng/mL (0.000-0.056) Pro-B-Type Natriuretic Peptide 267 pg/mL (0-125) H Microbiology Date/Time Source Procedure Growth Status 08/01/17 09:30 Stool Stool Culture - Preliminary Gram Negative Bacillus 1 Resulted 08/01/17 09:30 Stool Clostridium difficile Toxin Assay - Final Complete YAW WALLACE Aug 03, 2017 13:14
[2017-08-03] MEDS ORDERED: LORazepam Inj 2mg/ml 1ml IV PRN (14:00)
[2017-08-03 16:00] VITALS: BP 133/70
[2017-08-03] MEDS ORDERED: Miralax 17gm pkt ORAL PRN (18:15)
[2017-08-03 20:28] VITALS: BP 144/85
--- NOTE | 2017-08-03 20:43 | General Progress Note ---
Assessment/Plan Assessment/Plan Assessment - abdominal pain - possibly due to gastric ulcer - diarrhea - C Diff (-) - Leukocytosis - better - s/p RAVIN 2011 - recurrent anastamotic GJ ulcer - chronic abd pain complaints Recommendations - continue abx - push po - PPI BID - Carafate QID - d/c planning Subjective Allergies: Coded Allergies: MORPHINE (Verified Allergy, Unknown, 07/31/17) Per patient statement, she is allergic to morphine. Subjective above noted no new symptoms tolerating PO pain better d/c planning noted Objective Last 24 Hour Vital Signs Date Time Temp Pulse Resp B/P (MAP) Pulse Ox O2 Delivery O2 Flow Rate FiO2 08/03/17 20:28 97.3 85 18 144/85 95 08/03/17 18:25 98.2 08/03/17 16:00 98.2 92 20 133/70 95 Room Air 08/03/17 13:35 98.2 08/03/17 12:00 98.2 69 20 116/73 98 Nasal Cannula 2.0 08/03/17 08:46 Nasal Cannula 2.0 28 08/03/17 08:46 97 Nasal Cannula 2.0 28 08/03/17 08:46 66 20 Nasal Cannula 2.0 28 08/03/17 08:00 100 08/03/17 08:00 98.2 99 20 123/68 98 08/03/17 04:00 69 08/03/17 04:00 98.1 72 18 116/75 100 Nasal Cannula 2.0 08/03/17 00:00 97.9 65 20 120/73 100 Nasal Cannula 2.0 08/03/17 00:00 83 Intake and Output 08/03/17 08/04/17 19:00 07:00 Intake Total 1515.000 ml Balance 1515.000 ml Intake Oral 1210 ml IV Total 305.000 ml # Voids 4 # Bowel Movements 4 Laboratory Tests 08/03/17 11:10: White Blood Count 7.7, Red Blood Count 3.39L, Hemoglobin 10.6L, Hematocrit 33.9L , Mean Corpuscular Volume 100H, Mean Corpuscular Hemoglobin 31.2H, Mean Corpuscular Hemoglobin Concent 31.2L, Red Cell Distribution Width 13.5, Platelet Count 443, Mean Platelet Volume 5.6L, Neutrophils (%) (Auto) 48.1, Lymphocytes (%) (Auto) 36.6, Monocytes (%) (Auto) 11.4H, Eosinophils (%) (Auto) 2.9, Basophils (%) (Auto) 1.0, Sodium Level 145, Potassium Level 4.0, Chloride Level 112H, Carbon Dioxide Level 26, Anion Gap 7, Blood Urea Nitrogen 5L, Creatinine 0.7, Estimat Glomerular Filtration Rate > 60, Glucose Level 97, Calcium Level 8.4L, Magnesium Level 1.8, Troponin I 0.000, Pro-B-Type Natriuretic Peptide 267H Height (Feet): 5 Height (Inches): 3.00 Weight (Pounds): 176 Objective Elderly AA woman NCAT supple coarse BS RR abd soft and flat, but mild diffuse TTP during exam no edema awake and alert JOSE CHAPARRO Aug 03, 2017 20:43
[2017-08-04 00:46] VITALS: BP 140/80
[2017-08-04 04:00] VITALS: BP 132/69
[2017-08-04] MEDS: Levothyroxine 125mcg tab ORAL SCH (05:30)
[2017-08-04] MEDS: Vancomycin 750mg/NS 250ml 250 ML IVPB SCH ×3 (05:30→20:51)
[2017-08-04] MEDS: HYDROmorphone 4mg tab ORAL SCH ×3 (05:31→18:05)
[2017-08-04 08:00] VITALS: BP 140/82
[2017-08-04 08:20] LABS: BASOPHILS % (AUTO) 1.5 % (0.0-2.0); LYMPHOCYTES % (AUTO) 34.8 % (20.0-45.0); MEAN CORPUSCULAR HEMOGLOBIN 31.8 PG (27.0-31.0); MEAN CORPUSCULAR HGB CONC 31.4 G/DL (32.0-36.0); MEAN CORPUSCULAR VOLUME 101 FL (80-99); MEAN PLATELET VOLUME 5.8 FL (6.5-10.1); MONOCYTES % (AUTO) 10.6 % (1.0-10.0); NEUTROPHILS % (AUTO) 51.1 % (45.0-75.0); PLATELET COUNT 399 K/UL (150-450); RED BLOOD COUNT 3.81 M/UL (4.20-5.40); RED CELL DISTRIBUTION WIDTH 13.6 % (11.6-14.8); WHITE BLOOD COUNT 8.7 K/UL (4.8-10.8)
[2017-08-04 08:31] LABS: ANION GAP 9 mmol/L (5-15); CALCIUM 8.4 MG/DL (8.5-10.1); CARBON DIOXIDE 25 MMOL/L (21-32); CHLORIDE 110 MMOL/L (98-107); CREATININE 0.6 MG/DL (0.55-1.30); GLOMERULAR FILTRATION RATE > 60 mL/min (>60); POTASSIUM 4.7 MMOL/L (3.5-5.1); SODIUM 144 MMOL/L (136-145)
[2017-08-04] MEDS: Sucralfate 1gm tab ORAL SCH ×4 (08:41→20:51)
[2017-08-04] MEDS: Pantoprazole Inj IVP SCH ×2 (08:41→20:51)
[2017-08-04] MEDS: ALPRAZolam 0.5mg tab ORAL SCH ×3 (08:41→18:05)
[2017-08-04] MEDS: Heparin 5000 units/ml inj SUBQ SCH ×2 (08:43→20:53)
[2017-08-04] MEDS: Cefepime HCl 2 GM in D5W 55 ML IV SCH ×2 (08:58→20:35)
--- NOTE | 2017-08-04 11:16 | Diagnostic Imaging Report ---
Indication: SOB Technique: One view of the chest Comparison: 08/03/2017 Findings: Bilateral diffuse interstitial edema persists, essentially unchanged. There is slightly increased atelectasis at the right lung base, slightly decreased but persistent atelectasis at the left lung base. Heart size is normal. The pleural spaces are clear, and the left costophrenic angle is sharper than on the previous study Impression: Stable pulmonary interstitial edema Shifting basilar atelectasis Possibly decreased small left pleural effusion
--- NOTE | 2017-08-04 11:36 | General Progress Note ---
Assessment/Plan Assessment/Plan Assessment - abdominal pain - possibly due to gastric ulcer - diarrhea - C Diff (-) - Leukocytosis - better - s/p RAVIN 2011 - recurrent anastamotic GJ ulcer - chronic abd pain complaints Recommendations - continue abx - push po - PPI BID - Carafate QID - d/c planning Subjective Allergies: Coded Allergies: MORPHINE (Verified Allergy, Unknown, 07/31/17) Per patient statement, she is allergic to morphine. Subjective above noted no new symptoms tolerating PO pain better d/c planning Objective Last 24 Hour Vital Signs Date Time Temp Pulse Resp B/P (MAP) Pulse Ox O2 Delivery O2 Flow Rate FiO2 08/04/17 08:00 97.4 74 18 140/82 98 08/04/17 07:47 Nasal Cannula 2.0 28 08/04/17 07:47 58 18 Nasal Cannula 2.0 28 08/04/17 07:47 100 Nasal Cannula 2.0 28 08/04/17 06:31 97.9 08/04/17 04:00 97 Nasal Cannula 2.0 08/04/17 04:00 97.9 75 19 132/69 97 08/04/17 00:47 96 Nasal Cannula 2.0 08/04/17 00:46 97.5 80 19 140/80 96 08/03/17 21:33 Nasal Cannula 2.0 28 08/03/17 21:33 94 Nasal Cannula 2.0 28 08/03/17 21:32 84 18 Nasal Cannula 2.0 28 08/03/17 20:30 95 Nasal Cannula 2.0 08/03/17 20:28 97.3 85 18 144/85 95 08/03/17 16:00 98.2 92 20 133/70 95 Room Air 08/03/17 13:35 98.2 08/03/17 12:00 98.2 69 20 116/73 98 Nasal Cannula 2.0 Intake and Output 08/04/17 08/05/17 19:00 07:00 Intake Total 240 ml Balance 240 ml Intake Oral 240 ml # Voids 1 Laboratory Tests 08/04/17 07:45: White Blood Count 8.7, Red Blood Count 3.81L, Hemoglobin 12.1, Hematocrit 38.6, Mean Corpuscular Volume 101H, Mean Corpuscular Hemoglobin 31.8H, Mean Corpuscular Hemoglobin Concent 31.4L, Red Cell Distribution Width 13.6, Platelet Count 399, Mean Platelet Volume 5.8L, Neutrophils (%) (Auto) 51.1, Lymphocytes (%) (Auto) 34.8, Monocytes (%) (Auto) 10.6H, Eosinophils (%) (Auto) 2.0, Basophils (%) (Auto) 1.5, Sodium Level 144, Potassium Level 4.7, Chloride Level 110H, Carbon Dioxide Level 25, Anion Gap 9, Blood Urea Nitrogen 4L, Creatinine 0.6, Estimat Glomerular Filtration Rate > 60, Glucose Level 87, Calcium Level 8.4L Height (Feet): 5 Height (Inches): 3.00 Weight (Pounds): 176 Objective Elderly AA woman NCAT supple coarse BS RR abd soft and flat, but mild diffuse TTP during exam no edema awake and alert JOSE CHAPARRO Aug 04, 2017 11:36
[2017-08-04 12:00] VITALS: BP 146/96
--- NOTE | 2017-08-04 12:00 | Infectious Diseases Prog Note ---
Assessment/Plan Assessment/Plan SOB- possibly multifactorial due to CHF, possible PNA -CXR: Bilateral diffuse infiltrates versus edema-correlate with clinical findings. Leukocytosis, rseolved -afebrile Diarrhea -Cdiff neg, stool cx neg Hx Cdiff -Negative C Diff 04/18/17 at [facility]) and at this admission Abd pain- 2ry to recurrent ulcer' SP EGD 08/01 : anastomotic ulcers x 3 gastric bypass with hx of anastomosis ulceration, chronic low back pain, thyroid disease, GERD MDD Plan: -Last day of IV Vanco and Cefepime d# 7 / 7 -08/02 SP Flagyl d# 3 -Monitor CBC/BMP, temperatures -Aspiration precautions Subjective Allergies: Coded Allergies: MORPHINE (Verified Allergy, Unknown, 07/31/17) Per patient statement, she is allergic to morphine. Subjective afebrile Objective Vital Signs Last 24 Hour Vital Signs Date Time Temp Pulse Resp B/P (MAP) Pulse Ox O2 Delivery O2 Flow Rate FiO2 08/04/17 08:00 97.4 74 18 140/82 98 08/04/17 07:47 Nasal Cannula 2.0 28 08/04/17 07:47 58 18 Nasal Cannula 2.0 28 08/04/17 07:47 100 Nasal Cannula 2.0 28 08/04/17 06:31 97.9 08/04/17 04:00 97 Nasal Cannula 2.0 08/04/17 04:00 97.9 75 19 132/69 97 08/04/17 00:47 96 Nasal Cannula 2.0 08/04/17 00:46 97.5 80 19 140/80 96 08/03/17 21:33 Nasal Cannula 2.0 28 08/03/17 21:33 94 Nasal Cannula 2.0 28 08/03/17 21:32 84 18 Nasal Cannula 2.0 28 08/03/17 20:30 95 Nasal Cannula 2.0 08/03/17 20:28 97.3 85 18 144/85 95 08/03/17 16:00 98.2 92 20 133/70 95 Room Air 08/03/17 13:35 98.2 08/03/17 12:00 98.2 69 20 116/73 98 Nasal Cannula 2.0 Height (Feet): 5 Height (Inches): 3.00 Weight (Pounds): 176 Objective GENERAL: Shows to be a middle-aged female, in no respiratory distress. She is awake and responsive LUNGS: Appear to be clear on the right side. There are some crackles on the left side. CARDIAC: Regular rhythm. No heaves or thrills noted. ABDOMEN: Soft. There is some tenderness to deep palpation. No guarding. No rigidity. EXTREMITIES: There is no edema. No clubbing or cyanosis. NEUROLOGICAL: She is awake, alert, and responsive. Laboratory Tests Test 08/04/17 07:45 White Blood Count 8.7 K/UL (4.8-10.8) Red Blood Count 3.81 M/UL (4.20-5.40) L Hemoglobin 12.1 G/DL (12.0-16.0) Hematocrit 38.6 % (37.0-47.0) Mean Corpuscular Volume 101 FL (80-99) H Mean Corpuscular Hemoglobin 31.8 PG (27.0-31.0) H Mean Corpuscular Hemoglobin Concent 31.4 G/DL (32.0-36.0) L Red Cell Distribution Width 13.6 % (11.6-14.8) Platelet Count 399 K/UL (150-450) Mean Platelet Volume 5.8 FL (6.5-10.1) L Neutrophils (%) (Auto) 51.1 % (45.0-75.0) Lymphocytes (%) (Auto) 34.8 % (20.0-45.0) Monocytes (%) (Auto) 10.6 % (1.0-10.0) H Eosinophils (%) (Auto) 2.0 % (0.0-3.0) Basophils (%) (Auto) 1.5 % (0.0-2.0) Sodium Level 144 MMOL/L (136-145) Potassium Level 4.7 MMOL/L (3.5-5.1) Chloride Level 110 MMOL/L (98-107) H Carbon Dioxide Level 25 MMOL/L (21-32) Anion Gap 9 mmol/L (5-15) Blood Urea Nitrogen 4 mg/dL (7-18) L Creatinine 0.6 MG/DL (0.55-1.30) Estimat Glomerular Filtration Rate > 60 mL/min (>60) Glucose Level 87 MG/DL (74-106) Calcium Level 8.4 MG/DL (8.5-10.1) L Current Medications Medications (Trade) Dose Ordered Sig/Donald Route PRN Reason Start Time Stop Time Status Last Admin Dose Admin Acetaminophen (Tylenol) 650 mg Q4H PRN ORAL FEVER 08/03/17 14:15 08/28/17 18:14 Albuterol/ Ipratropium (Albuterol/ Ipratropium) 3 ml Q4H PRN HHN Shortness of Breath 08/03/17 16:00 08/07/17 11:59 Alprazolam (Xanax) 0.5 mg THREE TIMES A DAY ORAL 08/03/17 18:00 08/06/17 12:59 08/04/17 08:41 Cefepime HCl 2 gm/ Dextrose 55 ml @ 110 mls/hr EVERY 12 HOURS IV 08/03/17 21:00 08/05/17 20:29 08/04/17 08:58 Dextrose (Dextrose 50%) STAT PRN IV Hypoglycemia 08/03/17 18:15 08/28/17 18:14 Gabapentin (Neurontin) 600 mg Q8HR ORAL 08/03/17 14:00 08/28/17 21:59 08/04/17 05:30 Heparin Sodium (Porcine) (Heparin 5000 units/ml) 5,000 units EVERY 12 HOURS SUBQ 08/03/17 21:00 08/28/17 20:59 08/04/17 08:43 Hydromorphone HCl (Dilaudid) 4 mg Q6HR ORAL 08/03/17 18:00 08/05/17 19:29 08/04/17 05:31 Ibuprofen (Motrin) 600 mg TIDPRN PRN ORAL Moderate to Severe Pain 08/04/17 11:45 09/02/17 11:44 Levothyroxine Sodium (Synthroid) 125 mcg ACBREAKFAST ORAL 08/04/17 06:30 08/29/17 06:29 08/04/17 05:30 Lorazepam (Ativan 2mg/ml 1ml) 2 mg Q6H PRN IV For Breakthrough Anxiety 08/03/17 14:00 08/06/17 13:59 08/04/17 08:42 Ondansetron HCl (Zofran) 4 mg Q6H PRN IVP Nausea & Vomiting 08/03/17 18:15 08/28/17 18:14 Pantoprazole (Protonix) 40 mg EVERY 12 HOURS IVP 08/03/17 21:00 08/28/17 22:59 08/04/17 08:41 Polyethylene Glycol (Miralax) 17 gm DAILYPRN PRN ORAL Constipation 08/03/17 18:15 08/28/17 18:14 Potassium Chloride (K-Dur) 40 meq DAILY ORAL 08/04/17 09:00 08/30/17 08:59 08/04/17 08:41 Quetiapine Fumarate (SEROquel) 100 mg TID ORAL 08/03/17 18:00 08/29/17 21:59 08/04/17 08:41 Sucralfate (Carafate) 1 gm FOUR TIMES A DAY ORAL 08/03/17 18:00 09/01/17 20:59 08/04/17 08:41 Vancomycin HCl (Vanco rx to dose) 1 ea DAILY PRN MISC PER RX PROTOCOL 08/04/17 09:00 08/30/17 12:14 Vancomycin/Sodium Chloride 250 ml @ 166.667 mls/hr Q8HR IVPB 08/03/17 14:00 08/07/17 05:59 08/04/17 05:30 Aziza Sosa M.D. Aug 04, 2017 12:00
--- NOTE | 2017-08-04 15:44 | Pulmonology Progress Note ---
Assessment/Plan Problems: (1) Pneumonia (2) Abdominal pain (3) Depression (4) PUD (peptic ulcer disease) (5) H/O gastric bypass Assessment/Plan continue abx, last day today, afebrile, wbc normal improving wants to go short term rehab. dc planning Subjective ROS Limited/Unobtainable: No Interval Events: still coughing up yellow phlegmn Constitutional: Reports: no symptoms Allergies: Coded Allergies: MORPHINE (Verified Allergy, Unknown, 07/31/17) Per patient statement, she is allergic to morphine. Objective Last 24 Hour Vital Signs Date Time Temp Pulse Resp B/P (MAP) Pulse Ox O2 Delivery O2 Flow Rate FiO2 08/04/17 12:50 97.6 08/04/17 12:00 97.6 83 19 146/96 100 08/04/17 08:00 97.4 74 18 140/82 98 08/04/17 07:47 Nasal Cannula 2.0 28 08/04/17 07:47 58 18 Nasal Cannula 2.0 28 08/04/17 07:47 100 Nasal Cannula 2.0 28 08/04/17 04:00 97 Nasal Cannula 2.0 08/04/17 04:00 97.9 75 19 132/69 97 08/04/17 00:47 96 Nasal Cannula 2.0 08/04/17 00:46 97.5 80 19 140/80 96 08/03/17 21:33 Nasal Cannula 2.0 28 08/03/17 21:33 94 Nasal Cannula 2.0 28 08/03/17 21:32 84 18 Nasal Cannula 2.0 28 08/03/17 20:30 95 Nasal Cannula 2.0 08/03/17 20:28 97.3 85 18 144/85 95 08/03/17 16:00 98.2 92 20 133/70 95 Room Air Intake and Output 08/04/17 08/05/17 19:00 07:00 Intake Total 360 ml Balance 360 ml Intake Oral 360 ml # Voids 1 General Appearance: WD/WN HEENT: normocephalic, atraumatic Respiratory/Chest: chest wall non-tender, normal breath sounds Breasts: no masses Cardiovascular: normal rate Abdomen: normal bowel sounds Extremities: no cyanosis, no clubbing Skin: no lesions Laboratory Tests 08/04/17 07:45: White Blood Count 8.7, Red Blood Count 3.81L, Hemoglobin 12.1, Hematocrit 38.6, Mean Corpuscular Volume 101H, Mean Corpuscular Hemoglobin 31.8H, Mean Corpuscular Hemoglobin Concent 31.4L, Red Cell Distribution Width 13.6, Platelet Count 399, Mean Platelet Volume 5.8L, Neutrophils (%) (Auto) 51.1, Lymphocytes (%) (Auto) 34.8, Monocytes (%) (Auto) 10.6H, Eosinophils (%) (Auto) 2.0, Basophils (%) (Auto) 1.5, Sodium Level 144, Potassium Level 4.7, Chloride Level 110H, Carbon Dioxide Level 25, Anion Gap 9, Blood Urea Nitrogen 4L, Creatinine 0.6, Estimat Glomerular Filtration Rate > 60, Glucose Level 87, Calcium Level 8.4L Current Medications Medications (Trade) Dose Ordered Sig/Donald Route PRN Reason Start Time Stop Time Status Last Admin Dose Admin Acetaminophen (Tylenol) 650 mg Q4H PRN ORAL FEVER 08/03/17 14:15 08/28/17 18:14 Albuterol/ Ipratropium (Albuterol/ Ipratropium) 3 ml Q4H PRN HHN Shortness of Breath 08/03/17 16:00 08/07/17 11:59 Alprazolam (Xanax) 0.5 mg THREE TIMES A DAY ORAL 08/03/17 18:00 08/06/17 12:59 08/04/17 13:57 Cefepime HCl 2 gm/ Dextrose 55 ml @ 110 mls/hr EVERY 12 HOURS IV 08/03/17 21:00 08/05/17 20:29 08/04/17 08:58 Dextrose (Dextrose 50%) STAT PRN IV Hypoglycemia 08/03/17 18:15 08/28/17 18:14 Gabapentin (Neurontin) 600 mg Q8HR ORAL 08/03/17 14:00 08/28/17 21:59 08/04/17 14:41 Heparin Sodium (Porcine) (Heparin 5000 units/ml) 5,000 units EVERY 12 HOURS SUBQ 08/03/17 21:00 08/28/17 20:59 08/04/17 08:43 Hydromorphone HCl (Dilaudid) 4 mg Q6HR ORAL 08/03/17 18:00 08/05/17 19:29 08/04/17 13:55 Ibuprofen (Motrin) 600 mg TIDPRN PRN ORAL Moderate to Severe Pain 08/04/17 11:45 09/02/17 11:44 Levothyroxine Sodium (Synthroid) 125 mcg ACBREAKFAST ORAL 08/04/17 06:30 08/29/17 06:29 08/04/17 05:30 Lorazepam (Ativan 2mg/ml 1ml) 2 mg Q6H PRN IV For Breakthrough Anxiety 08/03/17 14:00 08/06/17 13:59 08/04/17 08:42 Ondansetron HCl (Zofran) 4 mg Q6H PRN IVP Nausea & Vomiting 08/03/17 18:15 08/28/17 18:14 Pantoprazole (Protonix) 40 mg EVERY 12 HOURS IVP 08/03/17 21:00 08/28/17 22:59 08/04/17 08:41 Polyethylene Glycol (Miralax) 17 gm DAILYPRN PRN ORAL Constipation 08/03/17 18:15 08/28/17 18:14 Potassium Chloride (K-Dur) 40 meq DAILY ORAL 08/04/17 09:00 08/30/17 08:59 08/04/17 08:41 Quetiapine Fumarate (SEROquel) 100 mg TID ORAL 08/03/17 18:00 08/29/17 21:59 08/04/17 13:55 Sucralfate (Carafate) 1 gm FOUR TIMES A DAY ORAL 08/03/17 18:00 09/01/17 20:59 08/04/17 13:54 Vancomycin HCl (Vanco rx to dose) 1 ea DAILY PRN MISC PER RX PROTOCOL 08/04/17 09:00 08/30/17 12:14 Vancomycin/Sodium Chloride 250 ml @ 166.667 mls/hr Q8HR IVPB 08/03/17 14:00 08/07/17 05:59 08/04/17 13:57 TAMMY MALDONADO Aug 04, 2017 15:44
[2017-08-04 16:00] VITALS: BP 130/83
--- NOTE | 2017-08-04 18:38 | Cardiology Report ---
APPROVED REPORT EKG Measurement Heart [id number] VT 168P43 [id number] Normal sinus rhythm Minimal voltage criteria for LVH, may be normal variant Cannot rule out Anterior infarct, age undetermined Abnormal ECG
--- NOTE | 2017-08-04 18:41 | Cardiology Report ---
APPROVED REPORT EKG Measurement Heart [id number] MD 144P43 [id number] Normal sinus rhythm Minimal voltage criteria for LVH, may be normal variant Nonspecific ST and T wave abnormality Abnormal ECG
[2017-08-04 20:00] VITALS: BP 137/87
--- NOTE | 2017-08-04 23:23 | General Progress Note ---
Assessment/Plan Status: stable Assessment/Plan MDD seroshae ryan Subjective Neurologic/Psychiatric: Reports: anxiety, depressed, emotional problems Allergies: Coded Allergies: MORPHINE (Verified Allergy, Unknown, 07/31/17) Per patient statement, she is allergic to morphine. Subjective asleep no interested in eval not engaged. the pt aao Objective Last 24 Hour Vital Signs Date Time Temp Pulse Resp B/P (MAP) Pulse Ox O2 Delivery O2 Flow Rate FiO2 08/04/17 16:00 97.9 79 18 130/83 100 08/04/17 12:50 97.6 08/04/17 12:00 97.6 83 19 146/96 100 08/04/17 08:00 97.4 74 18 140/82 98 08/04/17 07:47 Nasal Cannula 2.0 28 08/04/17 07:47 58 18 Nasal Cannula 2.0 28 08/04/17 07:47 100 Nasal Cannula 2.0 28 08/04/17 04:00 97 Nasal Cannula 2.0 08/04/17 04:00 97.9 75 19 132/69 97 08/04/17 00:47 96 Nasal Cannula 2.0 08/04/17 00:46 97.5 80 19 140/80 96 Intake and Output 08/04/17 08/05/17 19:00 07:00 Intake Total 600 ml Balance 600 ml Intake Oral 600 ml # Voids 2 Laboratory Tests 08/04/17 07:45: White Blood Count 8.7, Red Blood Count 3.81L, Hemoglobin 12.1, Hematocrit 38.6, Mean Corpuscular Volume 101H, Mean Corpuscular Hemoglobin 31.8H, Mean Corpuscular Hemoglobin Concent 31.4L, Red Cell Distribution Width 13.6, Platelet Count 399, Mean Platelet Volume 5.8L, Neutrophils (%) (Auto) 51.1, Lymphocytes (%) (Auto) 34.8, Monocytes (%) (Auto) 10.6H, Eosinophils (%) (Auto) 2.0, Basophils (%) (Auto) 1.5, Sodium Level 144, Potassium Level 4.7, Chloride Level 110H, Carbon Dioxide Level 25, Anion Gap 9, Blood Urea Nitrogen 4L, Creatinine 0.6, Estimat Glomerular Filtration Rate > 60, Glucose Level 87, Calcium Level 8.4L Height (Feet): 5 Height (Inches): 3.00 Weight (Pounds): 176 General Appearance: no apparent distress, alert Neurologic: alert, oriented x 3, responsive, depressed affect Shweta Cervantes M.D. Aug 04, 2017 23:23
[2017-08-05] VITALS: BP 135/82
[2017-08-05 04:00] VITALS: BP 130/78
[2017-08-05] MEDS: Levothyroxine 125mcg tab ORAL SCH (05:45)
[2017-08-05] MEDS: HYDROmorphone 4mg tab ORAL SCH ×3 (05:45→12:02)
[2017-08-05 08:43] VITALS: BP 137/77
[2017-08-05] MEDS: Sucralfate 1gm tab ORAL SCH ×2 (08:53→13:00)
[2017-08-05] MEDS: ALPRAZolam 0.5mg tab ORAL SCH ×2 (08:53→13:00)
[2017-08-05] MEDS: Heparin 5000 units/ml inj SUBQ SCH (08:58)
[2017-08-05] MEDS: Pantoprazole Inj IVP SCH (09:00)
--- NOTE | 2017-08-05 10:32 | Infectious Diseases Prog Note ---
Assessment/Plan Assessment/Plan SOB- possibly multifactorial due to CHF, possible PNA, s/p Rx -CXR: Bilateral diffuse infiltrates versus edema-correlate with clinical findings. Leukocytosis, resolved -afebrile Diarrhea -Cdiff neg, stool cx neg Hx Cdiff -Negative C Diff 04/18/17 at [facility]) and at this admission Abd pain- 2ry to recurrent ulcer' SP EGD 08/01 : anastomotic ulcers x 3 gastric bypass with hx of anastomosis ulceration, chronic low back pain, thyroid disease, GERD MDD Plan: -Continue to monitor off abx -08/04 SP IV Vanco/Cefepime #7 -08/02 SP Flagyl d# 3 -Monitor CBC/BMP, temperatures -Aspiration precautions -pulmonary toilette Subjective Allergies: Coded Allergies: MORPHINE (Verified Allergy, Unknown, 07/31/17) Per patient statement, she is allergic to morphine. Subjective afebrile no leukocytosis breathing better. feeling tired Objective Vital Signs Last 24 Hour Vital Signs Date Time Temp Pulse Resp B/P (MAP) Pulse Ox O2 Delivery O2 Flow Rate FiO2 08/05/17 08:43 98.1 95 21 137/77 97 08/05/17 07:40 95 Nasal Cannula 2.0 28 08/05/17 07:40 112 22 Nasal Cannula 2.0 28 08/05/17 07:40 Nasal Cannula 2.0 28 08/05/17 04:00 98.5 80 18 130/78 96 Room Air 08/05/17 00:00 98.6 79 18 135/82 92 Room Air 08/04/17 20:00 97.6 77 18 137/87 99 08/04/17 19:00 73 18 Room Air 21 08/04/17 19:00 95 Nasal Cannula 21 08/04/17 19:00 Room Air 21 08/04/17 16:00 97.9 79 18 130/83 100 08/04/17 12:50 97.6 08/04/17 12:00 97.6 83 19 146/96 100 Height (Feet): 5 Height (Inches): 3.00 Weight (Pounds): 176 Objective GENERAL: Shows to be a middle-aged female, in no respiratory distress. She is awake and responsive LUNGS: Appear to be clear on the right side. There are some crackles on the left side. CARDIAC: Regular rhythm. No heaves or thrills noted. ABDOMEN: Soft. There is some tenderness to deep palpation. No guarding. No rigidity. EXTREMITIES: There is no edema. No clubbing or cyanosis. NEUROLOGICAL: She is awake, alert, and responsive. Current Medications Medications (Trade) Dose Ordered Sig/Donald Route PRN Reason Start Time Stop Time Status Last Admin Dose Admin Acetaminophen (Tylenol) 650 mg Q4H PRN ORAL FEVER 08/03/17 14:15 08/28/17 18:14 Albuterol/ Ipratropium (Albuterol/ Ipratropium) 3 ml Q4H PRN HHN Shortness of Breath 08/03/17 16:00 08/07/17 11:59 Alprazolam (Xanax) 0.5 mg THREE TIMES A DAY ORAL 08/03/17 18:00 08/06/17 12:59 08/05/17 08:53 Dextrose (Dextrose 50%) STAT PRN IV Hypoglycemia 08/03/17 18:15 08/28/17 18:14 Gabapentin (Neurontin) 600 mg Q8HR ORAL 08/03/17 14:00 08/28/17 21:59 08/05/17 05:45 Heparin Sodium (Porcine) (Heparin 5000 units/ml) 5,000 units EVERY 12 HOURS SUBQ 08/03/17 21:00 08/28/17 20:59 08/05/17 08:58 Hydromorphone HCl (Dilaudid) 4 mg Q6HR ORAL 08/03/17 18:00 08/05/17 19:29 08/05/17 05:45 Ibuprofen (Motrin) 600 mg TIDPRN PRN ORAL Moderate to Severe Pain 08/04/17 11:45 09/02/17 11:44 Levothyroxine Sodium (Synthroid) 125 mcg ACBREAKFAST ORAL 08/04/17 06:30 08/29/17 06:29 08/05/17 05:45 Lorazepam (Ativan 2mg/ml 1ml) 2 mg Q6H PRN IV For Breakthrough Anxiety 08/03/17 14:00 08/06/17 13:59 08/04/17 08:42 Ondansetron HCl (Zofran) 4 mg Q6H PRN IVP Nausea & Vomiting 08/03/17 18:15 08/28/17 18:14 Pantoprazole (Protonix) 40 mg EVERY 12 HOURS IVP 08/03/17 21:00 08/28/17 22:59 08/04/17 20:51 Polyethylene Glycol (Miralax) 17 gm DAILYPRN PRN ORAL Constipation 08/03/17 18:15 08/28/17 18:14 Potassium Chloride (K-Dur) 40 meq DAILY ORAL 08/04/17 09:00 08/30/17 08:59 08/05/17 08:53 Quetiapine Fumarate (SEROquel) 100 mg TID ORAL 08/03/17 18:00 08/29/17 21:59 08/05/17 08:53 Sucralfate (Carafate) 1 gm FOUR TIMES A DAY ORAL 08/03/17 18:00 09/01/17 20:59 08/05/17 08:53 Vancomycin HCl (Vanco rx to dose) 1 ea DAILY PRN MISC PER RX PROTOCOL 08/04/17 09:00 08/30/17 12:14 Aziza Sosa M.D. Aug 05, 2017 10:32
[2017-08-05 11:52] VITALS: BP 130/81
[2017-08-05] MEDS ORDERED: Tubing IV Secondary IV ONE ×2 (12:59)
[2017-08-05] MEDS ORDERED: NS 500ML ONE ×2 (12:59)
--- NOTE | 2017-08-05 14:28 | Pulmonology Progress Note ---
Assessment/Plan Problems: (1) Pneumonia (2) Abdominal pain (3) Depression (4) PUD (peptic ulcer disease) (5) H/O gastric bypass Assessment/Plan no new complains improving wants to go short term rehab. dc planning in progress Subjective ROS Limited/Unobtainable: No Constitutional: Reports: no symptoms HEENT: Repors: no symptoms Respiratory: Reports: no symptoms Allergies: Coded Allergies: MORPHINE (Verified Allergy, Unknown, 07/31/17) Per patient statement, she is allergic to morphine. Objective Last 24 Hour Vital Signs Date Time Temp Pulse Resp B/P (MAP) Pulse Ox O2 Delivery O2 Flow Rate FiO2 08/05/17 13:01 97.9 08/05/17 12:00 Room Air 08/05/17 11:52 97.9 96 20 130/81 97 08/05/17 08:43 98.1 95 21 137/77 97 08/05/17 08:00 Room Air 08/05/17 07:40 95 Nasal Cannula 2.0 28 08/05/17 07:40 112 22 Nasal Cannula 2.0 28 08/05/17 07:40 Nasal Cannula 2.0 28 08/05/17 04:00 98.5 80 18 130/78 96 Room Air 08/05/17 00:00 98.6 79 18 135/82 92 Room Air 08/04/17 20:00 97.6 77 18 137/87 99 08/04/17 19:00 73 18 Room Air 21 08/04/17 19:00 95 Nasal Cannula 21 08/04/17 19:00 Room Air 21 08/04/17 16:00 97.9 79 18 130/83 100 Intake and Output 08/05/17 08/06/17 19:00 07:00 Intake Total 340 ml Balance 340 ml Intake Oral 340 ml # Voids 1 # Bowel Movements 1 General Appearance: WD/WN HEENT: normocephalic Respiratory/Chest: chest wall non-tender, lungs clear Breasts: no masses Cardiovascular: normal peripheral pulses Abdomen: normal bowel sounds, soft, non tender Genitourinary: normal external genitalia Extremities: no cyanosis Skin: no rash Current Medications Medications (Trade) Dose Ordered Sig/Donald Route PRN Reason Start Time Stop Time Status Last Admin Dose Admin Acetaminophen (Tylenol) 650 mg Q4H PRN ORAL FEVER 08/03/17 14:15 08/28/17 18:14 Albuterol/ Ipratropium (Albuterol/ Ipratropium) 3 ml Q4H PRN HHN Shortness of Breath 08/03/17 16:00 08/07/17 11:59 Alprazolam (Xanax) 0.5 mg THREE TIMES A DAY ORAL 08/03/17 18:00 08/06/17 12:59 08/05/17 08:53 Dextrose (Dextrose 50%) STAT PRN IV Hypoglycemia 08/03/17 18:15 08/28/17 18:14 Gabapentin (Neurontin) 600 mg Q8HR ORAL 08/03/17 14:00 08/28/17 21:59 08/05/17 05:45 Heparin Sodium (Porcine) (Heparin 5000 units/ml) 5,000 units EVERY 12 HOURS SUBQ 08/03/17 21:00 08/28/17 20:59 08/05/17 08:58 Hydromorphone HCl (Dilaudid) 4 mg Q6HR ORAL 08/03/17 18:00 08/05/17 19:29 08/05/17 12:02 Ibuprofen (Motrin) 600 mg TIDPRN PRN ORAL Moderate to Severe Pain 08/04/17 11:45 09/02/17 11:44 Levothyroxine Sodium (Synthroid) 125 mcg ACBREAKFAST ORAL 08/04/17 06:30 08/29/17 06:29 08/05/17 05:45 Lorazepam (Ativan 2mg/ml 1ml) 2 mg Q6H PRN IV For Breakthrough Anxiety 08/03/17 14:00 08/06/17 13:59 08/04/17 08:42 Ondansetron HCl (Zofran) 4 mg Q6H PRN IVP Nausea & Vomiting 08/03/17 18:15 08/28/17 18:14 Pantoprazole (Protonix) 40 mg EVERY 12 HOURS IVP 08/03/17 21:00 08/28/17 22:59 08/04/17 20:51 Polyethylene Glycol (Miralax) 17 gm DAILYPRN PRN ORAL Constipation 08/03/17 18:15 08/28/17 18:14 Potassium Chloride (K-Dur) 40 meq DAILY ORAL 08/04/17 09:00 08/30/17 08:59 08/05/17 08:53 Quetiapine Fumarate (SEROquel) 100 mg TID ORAL 08/03/17 18:00 08/29/17 21:59 08/05/17 08:53 Sucralfate (Carafate) 1 gm FOUR TIMES A DAY ORAL 08/03/17 18:00 09/01/17 20:59 08/05/17 08:53 TAMMY MALDONADO Aug 05, 2017 14:28
--- NOTE | 2017-08-05 14:56 | General Progress Note ---
Assessment/Plan Status: stable Assessment/Plan MDD seroquesumit ryan Subjective Neurologic/Psychiatric: Reports: depressed Allergies: Coded Allergies: MORPHINE (Verified Allergy, Unknown, 07/31/17) Per patient statement, she is allergic to morphine. Subjective the pt is doing well more anxious today awaiting discharge. Objective Last 24 Hour Vital Signs Date Time Temp Pulse Resp B/P (MAP) Pulse Ox O2 Delivery O2 Flow Rate FiO2 08/05/17 13:01 97.9 08/05/17 12:00 Room Air 08/05/17 11:52 97.9 96 20 130/81 97 08/05/17 08:43 98.1 95 21 137/77 97 08/05/17 08:00 Room Air 08/05/17 07:40 95 Nasal Cannula 2.0 28 08/05/17 07:40 112 22 Nasal Cannula 2.0 28 08/05/17 07:40 Nasal Cannula 2.0 28 08/05/17 04:00 98.5 80 18 130/78 96 Room Air 08/05/17 00:00 98.6 79 18 135/82 92 Room Air 08/04/17 20:00 97.6 77 18 137/87 99 08/04/17 19:00 73 18 Room Air 21 08/04/17 19:00 95 Nasal Cannula 21 08/04/17 19:00 Room Air 21 08/04/17 16:00 97.9 79 18 130/83 100 Intake and Output 08/05/17 08/06/17 19:00 07:00 Intake Total 340 ml Balance 340 ml Intake Oral 340 ml # Voids 1 # Bowel Movements 1 Height (Feet): 5 Height (Inches): 3.00 Weight (Pounds): 176 General Appearance: no apparent distress, alert Neurologic: alert, oriented x 3, responsive, depressed affect Shweta Cervantes M.D. Aug 05, 2017 14:56
--- NOTE | 2017-08-05 16:57 | General Progress Note ---
Assessment/Plan Assessment/Plan Assessment - abdominal pain - due to gastric ulcer - diarrhea - C Diff (-) - Leukocytosis - better - s/p RAVIN 2011 - recurrent anastamotic GJ ulcer - chronic abd pain complaints Recommendations - continue abx - push po - PPI BID - Carafate QID - advised she should not smoke - d/c planning Subjective Allergies: Coded Allergies: MORPHINE (Verified Allergy, Unknown, 07/31/17) Per patient statement, she is allergic to morphine. Subjective above noted walked into patient's smoke filled room no new symptoms tolerating PO pain better Objective Last 24 Hour Vital Signs Date Time Temp Pulse Resp B/P (MAP) Pulse Ox O2 Delivery O2 Flow Rate FiO2 08/05/17 13:01 97.9 08/05/17 12:00 Room Air 08/05/17 11:52 97.9 96 20 130/81 97 08/05/17 08:43 98.1 95 21 137/77 97 08/05/17 08:00 Room Air 08/05/17 07:40 95 Nasal Cannula 2.0 28 08/05/17 07:40 112 22 Nasal Cannula 2.0 28 08/05/17 07:40 Nasal Cannula 2.0 28 08/05/17 04:00 98.5 80 18 130/78 96 Room Air 08/05/17 00:00 98.6 79 18 135/82 92 Room Air 08/04/17 20:00 97.6 77 18 137/87 99 08/04/17 19:00 73 18 Room Air 21 08/04/17 19:00 95 Nasal Cannula 21 08/04/17 19:00 Room Air 21 Intake and Output 08/05/17 08/06/17 19:00 07:00 Intake Total 340 ml Balance 340 ml Intake Oral 340 ml # Voids 1 # Bowel Movements 1 Height (Feet): 5 Height (Inches): 3.00 Weight (Pounds): 176 Objective Elderly AA woman NCAT supple coarse BS RR abd soft and flat, but mild diffuse TTP during exam no edema awake and alert JOSE CHAPARRO Aug 05, 2017 16:56
--- NOTE | 2017-08-07 17:54 | Discharge Summary ---
Discharge Summary Hospital Course Date of Admission Jul 29, 2017 at 15:37 Date of Discharge Aug 05, 2017 at 13:00 Admitting Diagnosis HPI Maeve Garcia is a 62 year old female who was admitted on Jul 29, 2017 at 15: 37 for Pneumonia / Gastroenteritis,Abdominal Pain Hospital Course [id number] Discharge Discharge Disposition Patient eloped Discharge Diagnoses: Deysi Montgomery NP Aug 07, 2017 17:54
--- NOTE | 2017-08-08 01:00 | Discharge Summary 2 SIG ---
DATE OF ADMISSION: 07/29/2017 DATE OF DISCHARGE: 08/05/2017 CONSULTANTS: 1. Duncan Velasco M.D. 2. Mary Kay Magana M.D. 3. Aziza Sosa M.D. 4. Shweta Cervantes M.D. 5. Camacho Putnam M.D. BRIEF HOSPITAL COURSE: The patient is a 62-year-old female, who is a direct transfer from [facility]. The patient was having shortness of breath and abdominal pain. She was brought by daughter to [place] for reports of nausea, vomiting, and diarrhea. She was subsequently transferred to [facility]. She had history of multiple ulcer formations and history of depression. She was given respiratory treatment. Initially, had leukocytosis and was started on IV vancomycin, cefepime, and Flagyl. She had a chest x-ray done that showed bilateral diffuse infiltrates versus edema. She had an echocardiogram done that showed ejection fraction of 60% to 65% with mild diastolic relaxation abnormality, no significant valvular pathology, and PA pressure of 44. Telemetry data showed normal sinus rhythm. BNP was significantly elevated. She was given diuresis. She had low potassium of 2.8 and was given potassium supplements. Venous duplex of lower extremity was negative for DVT. On 07/31/2017, she underwent EGD by Dr. Magana. Findings showed that there were three anastomotic ulcers seen on the gastric side of the anastomosis. Two appeared to be wide-based and approximately 1 to 1.5 cm each. The third one was somewhat smaller and shallow. There is a hiatal hernia. The patient is status post Bouchra-en-Y gastric bypass surgery. There was no active bleed identified. Findings showed that the patient's previously known and previously healed ulcers have now returned and ulcers may be secondary phenomenon. She was treated with proton pump inhibitors as well as Carafate was added q.i.d. She was having diarrhea. Stool C. diff done was negative and no Salmonella, Shigella, or Campylobacter was isolated. Troponins remained negative. She was agitated and was provided a sitter. She was diagnosed to have major depressive disorder and was given alprazolam t.i.d. and was also on Seroquel. She was taken off Flagyl as stool C. difficile was negative. However, she completed seven days of IV vancomycin and cefepime. Antibiotic treatment was completed. She was ordered to be placed to [facility] facility, however, the patient eloped from the hospital. FINAL DIAGNOSES: 1. Pneumonia. 2. Peptic ulcer disease. 3. Diarrhea, Clostridium difficile negative. 4. Congestive heart failure with diastolic failure. 5. Hypokalemia. 6. Major depressive disorder. 7. Likely costochondritis. 8. History of gastric bypass. 9. Mild pulmonary hypertension. 10. Possible malnutrition. 11. Status post esophagogastroduodenoscopy on 07/31/2017. Giovanny Rogers M.D. I have been assigned to dictate discharge summary on this account and I was not involved in the patient's management. Deysi Montgomery N.P. DR: BENNIE JOB#: [id number] CC: SHANON
--- NOTE | 2017-08-26 18:30 | History and Physical Report ---
DATE OF ADMISSION: 07/29/2017 DATE OF SERVICE: 07/30/2017 CHIEF COMPLAINT: Shortness of breath. HISTORY OF PRESENT ILLNESS: This is a 62-year-old woman with history of peptic ulcer disease status post sleeve gastric bypass surgery with development of the peptic ulcer disease around the anastomosis, chronic pain dependence, depression, and bipolar disorder, who presented to the emergency room with a complaint of shortness of breath and abdominal pain. The patient was noted to have an infiltrate on chest x-ray, suspicious for community-acquired pneumonia and subsequently was admitted. The patient denies any fever or chills. No myalgia. No hemoptysis. No recent travel. The patient was transferred from the [facility], as she was not a member and was brought into [place]. PAST MEDICAL HISTORY: 1. Bipolar disorder. 2. Peptic ulcer disease. 3. Thyroid disease. 4. Gastric bypass surgery. MEDICATIONS AT HOME: Please refer to medication reconciliation. I have reviewed at length. ALLERGIES: No known drug allergies. FAMILY HISTORY: Reviewed, noncontributory. SOCIAL HISTORY: The patient has three children, unemployed. The patient lately has been living with sister. No tobacco at the present time, ex-smoker. No illicit drug use. No alcohol abuse. The patient has narcotic dependence. REVIEW OF SYSTEMS: A 14-point review of systems done.CONSTITUTIONAL: Generalized weakness and malaise. HEENT: No change in vision. No tinnitus. No epistaxis. No dysphagia. LUNGS: Reported cough with yellow sputum production. CARDIAC: No chest pain or palpitation. No history of coronary artery disease. ABDOMEN: Reported epigastric abdominal pain. History of peptic ulcer disease. History gastric bypass surgery. GENITOURINARY: No dysuria. No hematuria. No urine incontinence. NEUROLOGIC: No history of CVA or history of TIA. PSYCHIATRIC: History of bipolar disorder and depression. All the other systems reviewed and negative except what is mentioned above. PHYSICAL EXAMINATION: VITAL SIGNS: Upon arrival, blood pressure 142/96, respirations 24, pulse 98, temperature 97.4 degrees, and O2 saturation is 91% on 4 liters via nasal cannula. GENERAL: The patient lying in bed, not in distress. No accessory muscle use. HEENT: Eyes, anicteric. NECK: Supple. CARDIAC: S1 and S2 normal. LUNGS: Bilateral rhonchi. ABDOMEN: Soft. Positive bowel sounds. Epigastric abdominal pain on deep palpation. No guarding. No rebound. EXTREMITIES: No edema or cyanosis. NEUROLOGIC: No focal sensory or motor deficits. The patient follows commands. LABORATORY AND DIAGNOSTIC DATA: ABG on 07/29/2017, pH 7.49, pCO2 33.7, pO2 87.6, bicarbonate 25.4, and oxygen saturation 96%. WBC 20,000, hemoglobin 10.6, hematocrit 32.9, and platelets are 409 with 84% polys. Sodium 143, potassium is 2.8, chloride 106, bicarbonate 29, BUN 6, creatinine 0.6 and glucose is 94. Calcium is 8.4. Albumin 2.3. Phosphorus 3. Chest x-ray revealed bilateral diffuse infiltrate versus edema. IMPRESSION: 1. Bilateral community-acquired pneumonia. 2. Acute respiratory failure. 3. Hypoxemia. 4. Peptic ulcer disease. 5. Epigastric abdominal pain. 6. Hypokalemia. 7. Severe protein-calorie malnutrition. 8. Narcotic dependence. 9. Cough. 10. Leukocytosis. 11. Systemic inflammatory response syndrome. PLAN: 1. IV antibiotics. 2. Titrate oxygen to keep O2 saturation above 92%. 3. Pulmonary and Infectious Disease consult. 4. PPI b.i.d. 5. Carafate. 6. Sputum for culture. 7. Follow blood culture and sputum culture. 8. Pulmonary nebulizer. 9. May need IV Solu-Medrol. We will reassess tomorrow. 10. IV fluids. 11. A 2D echo. 12. DVT and GI prophylaxis. 13. Electrolytes repeat as indicated. 14. Potassium replete. 15. Further recommendations to follow pending the patient's response to above measures. 16. The patient may require penitentiary facility placement upon discharge. 17. Code Status, Full Code. Time spent on evaluation and intervention of care is 70 minutes. Giovanny Rogers M.D. DR: LASHELL JOB#: [id number] CC:
== END 2017-08-05 13:00 | disposition left against medical advice (07) | DRG 194 ==
LOC: 4E 15:37 → 2W 20:29 → 3E 08-03 13:24
PROC: 0DJD8ZZ Inspection of Lower Intestinal Tract, Via Natural or Artificial Opening Endoscopic (ICD-10-PCS; principal; 2017-07-31 11:31)
DX: J18.9 Pneumonia, unspecified organism (principal); E46 Unspecified protein-calorie malnutrition; I50.30 Unspecified diastolic (congestive) heart failure; R10.9 Unspecified abdominal pain; F32.9 Major depressive disorder, single episode, unspecified; R19.7 Diarrhea, unspecified; E87.6 Hypokalemia; M94.0 Chondrocostal junction syndrome [Tietze]; K44.9 Diaphragmatic hernia without obstruction or gangrene; Z98.84 Bariatric surgery status; F17.200 Nicotine dependence, unspecified, uncomplicated; Z88.6 Allergy status to analgesic agent; K28.7 Chronic gastrojejunal ulcer without hemorrhage or perforation
CPT/HCPCS: 36415; 36600; 71010; 80048; 80053; 80069; 80202; 82803; 83605; 83690; 83735; 83880; 84100; 84484; 85007; 85025; 85651; 87045; 87324; 93005; 93306; 93970; 94003; 94150; 94640; 94664; 94760; 97802; J7620; J8499

== ENCOUNTER 2019-03-16 07:48 | Inpatient (IN) | payer MEDICARE, OTHER ==
[~2019-03-16] VITALS: Ht 160 cm; Wt 64.9 kg
[2019-03-16] MEDS ORDERED: UNOBMED (07:53)
--- NOTE | 2019-03-16 08:25 | NUR ---
ED Nurse Note: x-ray at bedside.
--- NOTE | 2019-03-16 08:28 | Emergency Room Report ---
History of Present Illness General Chief Complaint: Altered Level of Consciousness Source: Patient Present Illness HPI 63-year-old female with history of gastric bypass, bipolar disorder, depression , hypothyroidism, and hypertension presents with altered level of consciousness , patient reports that for the last few months she has been feeling very fatigued, she is alert and oriented to person place and situation, but is very drowsy, but easily arousable to verbal stimulus. Patient was just discharged from [facility], with here 1 week ago and admitted, left AGAINST MEDICAL ADVICE, denies any drug use, last time she was here denied homelessness. She has no complaints other than being tired. She denies any drug use, was found on the neighbors porch this morning and that is why rescue was called. Allergies: Coded Allergies: MORPHINE (Verified Allergy, Unknown, 07/31/17) Per patient statement, she is allergic to morphine. Patient History Past Medical History: see triage record, old chart reviewed Reviewed Nursing Documentation: PMH: Agreed; PSxH: Agreed Nursing Documentation-PMH Past Medical History: No History, Except For Hx Hypertension: Yes Hx Cancer: No Hx Gastrointestinal Problems: Yes - gastric bypass 2011 Hx Neurological Problems: No Review of Systems All Other Systems: negative except mentioned in HPI Physical Exam Vital Signs Date Time Temp Pulse Resp B/P (MAP) Pulse Ox O2 Delivery O2 Flow Rate FiO2 03/16/19 07:44 80 17 161/118 (132) 99 Room Air Sp02 EP Interpretation: reviewed, normal General Appearance: alert, non-toxic, mild distress, lethargic Head: normocephalic Eyes: bilateral eye normal inspection, bilateral eye PERRL, bilateral eye EOMI ENT: normal ENT inspection, hearing grossly normal, normal pharynx, no angioedema, normal voice, moist mucus membranes Neck: normal inspection, full range of motion, supple, thyroid normal, no meningismus, supple/symm/no masses Respiratory: chest non-tender, lungs clear, normal breath sounds, no rhonchi, no respiratory distress, no retraction, no accessory muscle use, no wheezing, chest symmetrical, palpation of chest normal Cardiovascular #1: normal peripheral pulses, regular rate, rhythm, no gallop, no JVD, no murmur, no rub, edema - trace b/l le ankle edema Cardiovascular #2: 2+ radial (R), 2+ radial (L) Gastrointestinal: normal inspection, non tender, soft, no mass, no guarding, no rebound Rectal: deferred Genitourinary: normal inspection, no CVA tenderness Musculoskeletal: back normal, normal range of motion, non-tender, no calf tenderness Neurologic: alert, responsive, management assistant III-XII nml as tested, motor strength/tone normal, sensory intact, speech normal Psychiatric: mood/affect normal, no suicidal/homicidal ideation Lymphatic: no adenopathy Medical Decision Making Diagnostic Impression: Primary Impression: Altered level of consciousness Additional Impressions: HTN (hypertension) UTI (urinary tract infection) ER Course Patient left 4 days ago AMA after being admitted here. CXR, CT head normal, pending labs. Normal neuro exam but patient very drowsy, difficult to keep up and unable to perform gait testing due to persistent sleepiness. His labs are fairly unremarkable other than a low T3, but normal T4, and UA concerning for possible UTI, patient given IV antibiotics, case discussed with Dr. Gorman, he agrees to admit to [facility] observation, he knows patient well, suspect she will wake up, thinks that patient may be slightly postictal as he thinks that she has a history of seizures in the past. EKG Diagnostic Results EKG Time: 08:38 EP Interpretation: no stemi Rate: normal Rhythm: NSR ST Segments: no acute changes ASA given to the pt in ED: Yes Rhythm Strip Diag. Results Rhythm Strip Time: 08:47 EP Interpretation: yes Rate: 75 Chest X-Ray Diagnostic Results Chest X-Ray Diagnostic Results : Chest X-Ray Ordered: Yes # of Views/Limited/Complete: 1 View Indication: Other - htn EP Interpretation: Yes Interpretation: no consolidation, no effusion, no acute cardiopulmonary disease Impression: No acute disease Electronically Signed by: Cherry Parker MD CT/MRI/US Diagnostic Results CT/MRI/US Diagnostic Results : Imaging Test Ordered: ct head noncontrast Impression no acute dz Last Vital Signs Date Time Temp Pulse Resp B/P (MAP) Pulse Ox O2 Delivery O2 Flow Rate FiO2 03/16/19 07:44 80 17 161/118 (132) 99 Room Air Disposition: ADMITTED INPATIENT Condition: Stable CHERRY PARKER M.D Mar 16, 2019 08:28
--- NOTE | 2019-03-16 08:30 | NUR ---
ED Nurse Note: pt jt avila 68 from home pt states she fell asleep on neighbors porch and she is very tired. ermkaykay rush done pt down to ct.
--- NOTE | 2019-03-16 08:54 | Diagnostic Imaging Report ---
Indications: Altered level of consciousness Technique: Spiral acquisitions obtained through the brain. Angled axial and coronal 5 x 5 mm slices were reconstructed. Total dose length product 1347.93 mGycm. CTDI vol(s) 70.38 mGy. Dose reduction achieved using automated exposure control Comparison: None. Findings: There is mild age-related enlargement of the ventricles and extra axial CSF spaces. No acute intercranial hemorrhage or edema, mass effect, nor midline shift. Normal covington-white differentiation. Visualized orbits and sinuses are unremarkable. The mastoids are clear. The calvarium is intact. Impression: Mild age-related volume loss Negative for acute intracranial bleed or mass effect The CT scanner at [facility] is accredited by the [employer] and the scans are performed using protocols designed to limit radiation exposure to as low as reasonably achievable to attain images of sufficient resolution adequate for diagnostic evaluation.
--- NOTE | 2019-03-16 09:03 | NUR ---
ED Nurse Note: SL established ivf infusing unable to get blood . lab called to draw.
[2019-03-16 09:09] VITALS: BP 160/99
--- NOTE | 2019-03-16 09:18 | NUR ---
ED Nurse Note: crown and bridge dental lab technician at bedside for blood draw
--- NOTE | 2019-03-16 09:40 | Diagnostic Imaging Report ---
Indication: Shortness of breath Technique: One view of the chest Comparison: 08/04/2017 Findings: No acute infiltrates, effusions, or congestion. Tortuous calcified aorta. Normal heart size. Upper mediastinum unremarkable. Previously demonstrated congestive and atelectatic changes are not evident currently. Impression: No acute process.
[2019-03-16 09:49] LABS: APPEARANCE,URINE SLIGHTLY CLOUDY; BILIRUBIN, URINE NEGATIVE (NEGATIVE); GLUCOSE, URINE (UA) NEGATIVE (NEGATIVE); KETONES,URINE NEGATIVE (NEGATIVE); LEUKOCYTE ESTERASE ,URINE 2+ (NEGATIVE); NITRITE,URINE NEGATIVE (NEGATIVE); PH,URINE 6 (4.5-8.0); PROTEIN,URINE NEGATIVE (NEGATIVE); UROBILINOGEN,URINE NORMAL MG/DL (0.0-1.0)
[2019-03-16 09:52] LABS: COLOR,URINE YELLOW
[2019-03-16 09:54] LABS: BASOPHILS % (AUTO) 0.8 % (0.0-2.0); EOSINOPHILS % (AUTO) 1.5 % (0.0-3.0); HEMATOCRIT 39.7 % (37.0-47.0); HEMOGLOBIN 12.3 G/DL (12.0-16.0); LYMPHOCYTES % (AUTO) 49.9 % (20.0-45.0); MEAN CORPUSCULAR VOLUME 92 FL (80-99); MONOCYTES % (AUTO) 12.2 % (1.0-10.0); NEUTROPHILS % (AUTO) 35.5 % (45.0-75.0); PLATELET COUNT 217 K/UL (150-450); RED BLOOD COUNT 4.31 M/UL (4.20-5.40); RED CELL DISTRIBUTION WIDTH 14.8 % (11.6-14.8); WHITE BLOOD COUNT 4.5 K/UL (4.8-10.8)
[2019-03-16 10:03] LABS: ANION GAP 7 mmol/L (5-15); BLOOD UREA NITROGEN 11 mg/dL (7-18); CALCIUM 9.2 MG/DL (8.5-10.1); CARBON DIOXIDE 28 MMOL/L (21-32); CHLORIDE 107 MMOL/L (98-107); CREATININE 0.7 MG/DL (0.55-1.30); POTASSIUM 3.5 MMOL/L (3.5-5.1); SODIUM 142 MMOL/L (136-145)
[2019-03-16 10:04] LABS: AMMONIA 28 umol/L (11-32)
[2019-03-16 10:13] LABS: ALANINE AMINOTRANSFERASE 17 U/L (12-78); ALBUMIN 3.6 G/DL (3.4-5.0); ALBUMIN/GLOBULIN RATIO 1.2 (1.0-2.7); ALKALINE PHOSPHATASE 105 U/L (46-116); ASPARTATE AMINO TRANSFERASE 18 U/L (15-37); BILIRUBIN,TOTAL 0.5 MG/DL (0.2-1.0)
[2019-03-16] MEDS ORDERED: cefTRIAXone 1 GM in NS 55 ML IVPB ONE (10:30)
[2019-03-16 11:14] VITALS: BP 163/101
[2019-03-16 12:00] VITALS: BP 184/124
--- NOTE | 2019-03-16 12:22 | NUR ---
NURSE NOTES: Patient transferred from ER via rney at 1150. Report received from EMILY Cobb. Belongings reviewed and accounted for. Patient oriented to room. Patient is alert to name and time. Patient is poor historian. Patient keeps dosing off when asked admission questions. Patient has no reports of pain at the moment. Side rails are up x3, bed is locked, in lowest position, and call light is within reach. Will continue to monitor.
--- NOTE | 2019-03-16 13:04 | NUR ---
NURSE NOTES: Dr. Rogers called for admission orders. New orders received.
[2019-03-16] MEDS: Sucralfate 1gm tab ORAL SCH ×3 (13:57→21:19)
[2019-03-16] MEDS: Dicyclomine 10mg Cap ORAL SCH ×2 (13:57→17:50)
[2019-03-16] MEDS: Heparin 5000 units/ml inj SUBQ SCH ×2 (13:59→21:19)
[2019-03-16 16:00] VITALS: BP 157/101
--- NOTE | 2019-03-16 19:20 | NUR ---
NURSE NOTES: Received report from EMILY Cherry, patient in stable condition, lying in bed, AOx2, able to make needs known, complains of headache and stomach pain, IV site L hand 22 G, intact, patent, asymptomatic, bed lowest position, brakes on, side rail up x2, will continue to monitor and reassess.
--- NOTE | 2019-03-16 19:42 | NUR ---
NURSE NOTES: Patient reports headache 03/10. Dr. Rogers notified. New order received.
--- NOTE | 2019-03-16 19:43 | NUR ---
NURSE NOTES: Heart rate noted to be elevated 121-135. Dr. Rogers notified. No new orders received.
--- NOTE | 2019-03-16 19:54 | NUR ---
HAND-OFF: Report given to EMILY Moreno.
[2019-03-16 20:00] VITALS: BP 137/82
[2019-03-16] MEDS: traMADol 50mg tab ORAL PRN (21:21)
--- NOTE | 2019-03-16 22:42 | History & Physical ---
History and Physical History & Physicial pt seen in ER Date of Service: 03/16/19 d/w ER attending Dull note dictation to follow Giovanny Rogers MD [phone] Giovanny Rogers MD Mar 16, 2019 22:42
[2019-03-16] MEDS ORDERED: LORazepam Inj 2mg/ml 1ml IV ONE (23:00)
[2019-03-17] VITALS (7 sets, daily range): BP systolic 108–121; BP diastolic 65–73
--- NOTE | 2019-03-17 01:15 | History and Physical Report ---
DATE OF ADMISSION: 03/16/2019 The patient was seen in the emergency room. CHIEF COMPLAINT: The patient was brought in by paramedics for altered mental status. HISTORY OF PRESENT ILLNESS: This is a 63-year-old woman who is very well known to me for past several years, presented to [facility] with altered mental status. The patient has a history of gastric bypass, bipolar disorder, depression, hypothyroidism, hypertension, seizure disorder, and noncompliance with medication, and recently has multi-medication prescription. However, I called in after few days to refill the patient's medications. The patient was brought in for evaluation for feeling fatigued and altered. The patient is somewhat drowsy and will only respond to questions by answering simple words. The patient's baseline mental status is normal. Drug toxicology did not reveal any illicit drug use for any opiates or benzodiazepine use. PAST SURGICAL HISTORY: History of gastric bypass surgery and multiple endoscopies. MEDICATIONS AT HOME: Please refer to the medication reconciliation. I have reviewed at length. ALLERGIES: Morphine. FAMILY HISTORY: Reviewed and noncontributory. SOCIAL HISTORY: The patient lives with her daughter. She is ex-smoker. No alcohol. No illicit drug use. Chronic opiate use. REVIEW OF SYSTEMS: GENERAL: Limited due to altered mental status. Denies any chest pain. No palpitation. HEENT: No headache. No visual disturbances. NEUROLOGIC: Depression, has history of seizure. CARDIAC: This patient has history of hypertension. ABDOMEN: History of gastric bypass, peptic ulcer disease, and GERD. GENITOURINARY: No dysuria or hematuria. MUSCULOSKELETAL: No joint pain. All other systems reviewed and negative except what is mentioned above. PHYSICAL EXAMINATION: VITAL SIGNS: Blood pressure upon arrival to the emergency room 161/118 with pulse 88, respirations 17, O2 saturation 99% on room air. Afebrile. GENERAL: The patient is arousable. Answered questions in few words. HEENT: Eyes, anicteric. Pupils are reactive to light. NECK: Supple. No JVD. No carotid bruits. CARDIAC: S1 and S2 normal. No murmur, rub, or gallop. LUNGS: Clear. ABDOMEN: Soft, nontender, and nondistended. No guarding. No rebound. EXTREMITIES: No cyanosis. No edema. NEUROLOGIC: The patient responds to pain and verbal stimuli. Lethargic. Oriented to place and person. LABORATORY DATA: Labs on admission, urine toxicology is negative. Sodium 142, potassium 3.5, chloride 107, bicarb 28, BUN 11, and creatinine 0.7. Glucose 82. Calcium 9.2. AST 18, ALT 17, and alkaline phosphatase 105. Ammonia 28. Troponin 0. Albumin 3.6. Free T4 1.07 and free T3 2.2. WBC 4.5, hemoglobin 12.3, hematocrit 39.7, and platelets 217. Chest x-ray, no acute process. Head CT without contrast, mild age-related volume loss. Negative for acute intracranial bleed or mass effect. IMPRESSION: 1. Acute encephalopathy, possible seizure versus withdrawal symptoms from lack of medications. 2. History of hypertension. 3. Hypothyroidism. 4. Gastroesophageal reflux disease. 5. History of peptic ulcer disease. 6. History of gastric bypass surgery. 7. Medication noncompliance. 8. History of opiate abuse and dependency. 9. History of bipolar disorder. 10. Depression. PLAN: 1. Admit to telemetry. 2. IV hydration. 3. EEG. 4. Check urinalysis. 5. PPI. 6. Resume home medication. 7. Check TSH. 8. We will hold any outpatient Xanax or any pain medication at the present time. 9. Seizure precaution. 10. DVT and gastrointestinal prophylaxes. 11. Further recommendations will follow pending the patient's response to above measures. 12. Code status, Full Code. Time spent in evaluation and implementation of care 75 minutes. Case was discussed with the ER physician. Giovanny Rogers M.D. DR: PEPE JOB#: [id number] CC:
[2019-03-17] MEDS: Levothyroxine 125mcg tab ORAL SCH (06:00)
[2019-03-17] MEDS: Heparin 5000 units/ml inj SUBQ SCH ×3 (06:01→22:01)
[2019-03-17 07:19] LABS: HEMATOCRIT 35.3 % (37.0-47.0); HEMOGLOBIN 10.9 G/DL (12.0-16.0); MEAN CORPUSCULAR VOLUME 93 FL (80-99); PLATELET COUNT 207 K/UL (150-450); RED BLOOD COUNT 3.77 M/UL (4.20-5.40); RED CELL DISTRIBUTION WIDTH 15.2 % (11.6-14.8); WHITE BLOOD COUNT 5.2 K/UL (4.8-10.8)
--- NOTE | 2019-03-17 07:30 | NUR ---
HAND-OFF: Report given to EMILY Wong, patient in stable condition, plan of care endorsed.
--- NOTE | 2019-03-17 07:44 | NUR ---
NURSE NOTES: Received report from EMILY Moreno. Patient in bed resting, no active s/s cardiac, respiratory distress noticed a this time. Patient on room air, SR with HR 65, AOx3. IV on left hand 22G, asymptomatic, patent, intact, IV fluid running at prescribed rate. Endorsed need of urine collection. Bed in lowest position, side rails upx3, call light within reach, bed alarm on. Will continue to monitor.
[2019-03-17 07:52] LABS: ALANINE AMINOTRANSFERASE 8 U/L (12-78); ALBUMIN 2.5 G/DL (3.4-5.0); ALBUMIN/GLOBULIN RATIO 0.9 (1.0-2.7); ALKALINE PHOSPHATASE 84 U/L (46-116); ANION GAP 5 mmol/L (5-15); ASPARTATE AMINO TRANSFERASE 15 U/L (15-37); BILIRUBIN,TOTAL 0.4 MG/DL (0.2-1.0); BLOOD UREA NITROGEN 12 mg/dL (7-18); CALCIUM 8.3 MG/DL (8.5-10.1); CARBON DIOXIDE 28 MMOL/L (21-32); CHLORIDE 111 MMOL/L (98-107); CREATINE KINASE 47 U/L (26-308); CREATININE 0.9 MG/DL (0.55-1.30); POTASSIUM 4.2 MMOL/L (3.5-5.1); SODIUM 144 MMOL/L (136-145)
--- NOTE | 2019-03-17 08:56 | NUR ---
CASE MANAGEMENT:REVIEW 63 YR OLD FEMALE BIBA FROM STRE[facility]; AMS...FELL ASLEEP ON NEIGHBORS PORCH SI: AMS. HTN. UTI 97.2 80 17 161/118 99% ON RA TROPONIN(-) IS: 1L NS BOLUS URINE CX CHEST XRAY CT HEAD : TO TELEMETRY UNIT PLAN: NEURO CHECKS Q4HRS
[2019-03-17] MEDS: Dicyclomine 10mg Cap ORAL SCH ×3 (09:30→18:11)
[2019-03-17] MEDS: Vitamin B-12 500mcg tab ORAL SCH (09:30)
[2019-03-17] MEDS: Sucralfate 1gm tab ORAL SCH ×4 (09:31→20:14)
[2019-03-17] MEDS: traMADol 50mg tab ORAL PRN ×3 (09:32→19:52)
--- NOTE | 2019-03-17 11:20 | Internal Med Progress Note ---
Subjective Date of Service: Mar 17, 2019 Physician Name Giovanny Rogers Attending Physician Giovanny Rogers MD Current Medications Medications (Trade) Dose Ordered Sig/Donald Route PRN Reason Start Time Stop Time Status Last Admin Dose Admin Amlodipine Besylate (Norvasc) 10 mg DAILY ORAL 03/16/19 13:00 04/15/19 12:59 03/16/19 13:58 Atenolol (Tenormin) 50 mg DAILY ORAL 03/17/19 09:00 04/16/19 08:59 Cyanocobalamin (Vitamin B-12) 1,000 mcg DAILY ORAL 03/17/19 09:00 04/16/19 08:59 03/17/19 09:30 Dicyclomine HCl (Bentyl) 20 mg TID ORAL 03/16/19 14:00 04/15/19 13:59 03/17/19 09:30 Folic Acid (Folate) 1 mg DAILY ORAL 03/17/19 09:00 04/16/19 08:59 03/17/19 09:29 Heparin Sodium (Porcine) (Heparin 5000 units/ml) 5,000 units EVERY 8 HOURS SUBQ 03/16/19 14:00 04/15/19 13:59 03/17/19 06:01 Levetiracetam (Keppra) 750 mg Q12HR ORAL 03/16/19 21:00 04/15/19 20:59 03/17/19 09:29 Levothyroxine Sodium (Synthroid) 125 mcg DAILY@0630 ORAL 03/17/19 06:30 04/16/19 06:29 03/17/19 06:00 Multivitamins (Multivitamins) 1 tab DAILY ORAL 03/17/19 09:00 04/16/19 08:59 03/17/19 09:29 Ondansetron HCl (Zofran) 4 mg Q4H PRN IVP Nausea & Vomiting 03/16/19 13:00 04/15/19 12:59 03/16/19 14:10 Pantoprazole (Protonix) 40 mg DAILY ORAL 03/17/19 09:00 04/16/19 08:59 03/17/19 09:30 Sucralfate (Carafate) 1 gm FOUR TIMES A DAY ORAL 03/16/19 13:00 04/15/19 12:59 03/17/19 09:31 Tramadol HCl (Ultram) 50 mg Q6H PRN ORAL For Pain 03/16/19 19:45 03/23/19 19:44 03/17/19 09:32 Allergies: Coded Allergies: MORPHINE (Verified Allergy, Unknown, 07/31/17) Per patient statement, she is allergic to morphine. Constitutional: Reports: weakness HEENT: Reports: no symptoms Cardiovascular: Reports: no symptoms Respiratory: Reports: no symptoms Gastrointestinal/Abdominal: Reports: abdominal pain, poor appetite Genitourinary: Reports: no symptoms Neurologic/Psychiatric: Reports: depressed, seizure All Systems: reviewed and negative except above Objective Last Vital Signs Date Time Temp Pulse Resp B/P (MAP) Pulse Ox O2 Delivery O2 Flow Rate FiO2 03/17/19 09:00 64 108/65 03/17/19 09:00 Room Air 03/17/19 08:00 97.3 16 98 General Appearance: no apparent distress EENT: PERRL/EOMI Neck: non-tender, supple Cardiovascular: normal peripheral pulses, normal rate, regular rhythm, no gallop/murmur Respiratory/Chest: chest wall non-tender, lungs clear, normal breath sounds, no respiratory distress, no accessory muscle use Abdomen: normal bowel sounds, non tender, soft, no organomegaly, no mass Extremities: non-tender Neurologic: rest room maid II-XII grossly normal, alert, oriented x 3 Skin: warm/dry Laboratory Tests Test 03/17/19 06:42 White Blood Count 5.2 K/UL (4.8-10.8) Red Blood Count 3.77 M/UL (4.20-5.40) L Hemoglobin 10.9 G/DL (12.0-16.0) L Hematocrit 35.3 % (37.0-47.0) L Mean Corpuscular Volume 93 FL (80-99) Mean Corpuscular Hemoglobin 28.9 PG (27.0-31.0) Mean Corpuscular Hemoglobin Concent 31.0 G/DL (32.0-36.0) L Red Cell Distribution Width 15.2 % (11.6-14.8) H Platelet Count 207 K/UL (150-450) Mean Platelet Volume 5.7 FL (6.5-10.1) L Neutrophils (%) (Auto) % (45.0-75.0) Lymphocytes (%) (Auto) % (20.0-45.0) Monocytes (%) (Auto) % (1.0-10.0) Eosinophils (%) (Auto) % (0.0-3.0) Basophils (%) (Auto) % (0.0-2.0) Differential Total Cells Counted 100 Neutrophils % (Manual) 37 % (45-75) L Lymphocytes % (Manual) 57 % (20-45) H Monocytes % (Manual) 4 % (1-10) Eosinophils % (Manual) 2 % (0-3) Basophils % (Manual) 0 % (0-2) Band Neutrophils 0 % (0-8) Platelet Estimate Adequate Platelet Morphology Normal Hypochromasia 1+ Anisocytosis 1+ Sodium Level 144 MMOL/L (136-145) Potassium Level 4.2 MMOL/L (3.5-5.1) Chloride Level 111 MMOL/L (98-107) H Carbon Dioxide Level 28 MMOL/L (21-32) Anion Gap 5 mmol/L (5-15) Blood Urea Nitrogen 12 mg/dL (7-18) Creatinine 0.9 MG/DL (0.55-1.30) Estimat Glomerular Filtration Rate > 60 mL/min (>60) Glucose Level 82 MG/DL (74-106) Calcium Level 8.3 MG/DL (8.5-10.1) L Phosphorus Level 4.2 MG/DL (2.5-4.9) Magnesium Level 2.0 MG/DL (1.8-2.4) Total Bilirubin 0.4 MG/DL (0.2-1.0) Aspartate Amino Transf (AST/SGOT) 15 U/L (15-37) Alanine Aminotransferase (ALT/SGPT) 8 U/L (12-78) L Alkaline Phosphatase 84 U/L (46-116) Total Creatine Kinase 47 U/L (26-308) Total Protein 5.4 G/DL (6.4-8.2) L Albumin 2.5 G/DL (3.4-5.0) L Globulin 2.9 g/dL Albumin/Globulin Ratio 0.9 (1.0-2.7) L Thyroid Stimulating Hormone (TSH) 0.135 uiU/mL (0.358-3.740) Microbiology Date/Time Source Procedure Growth Status 03/16/19 10:10 Rectum Received Intake and Output 03/16/19 03/17/19 19:00 07:00 Intake Total 750 ml 1393 ml Balance 750 ml 1393 ml Intake Oral 240 ml IV Total 100 ml 1153 ml Other 650 ml # Voids 1 3 Assessment/Plan Status: stable, progressing, tolerating diet Assessment/Plan 1. Acute encephalopathy, possible seizure versus withdrawal symptoms from lack of medications. 2. History of hypertension. 3. Hypothyroidism. 4. Gastroesophageal reflux disease. 5. History of peptic ulcer disease. 6. History of gastric bypass surgery. 7. Medication noncompliance. 8. History of opiate abuse and dependency. 9. History of bipolar disorder. 10. Depression. 11. homelessness 12. transient accelerated HTN and tachycardia like benzo withdrawal PLAN: 1. Admit to telemetry. 2. IV hydration. 3. EEG. 4.urinalysis. 5. PPI. 6.continue home medication. 7. TSH low with normal free T4 8. We will hold any outpatient Xanax or any pain medication at the present time. 9. Seizure precaution. 10. DVT and gastrointestinal prophylaxes. 11. Further recommendations will follow pending the patient's response to above measures. 12. Code status, Full Code. 13. social security specialist eval for placement 14. atenolol for BP and HR control Giovanny Barbosa MD [phone] Giovanny Rogers MD Mar 17, 2019 11:20
--- NOTE | 2019-03-17 11:30 | NUR ---
NURSE NOTES: kristina Andrade [phone] and informed patient schedule for EEG today.
--- NOTE | 2019-03-17 11:38 | NUR ---
NURSE NOTES: Per Dr. Rogers, change observation status to inpatient, Rocephin 1gm daily IVPB, no Ambien, Flexeril 10mg TID prn, Benadryl 25mg PO q 4h, change Ultram to q4h. Order noted entered, carried out. Will continue to monitor.
[2019-03-17] MEDS: ALPRAZolam 0.5mg tab ORAL SCH ×2 (12:47→18:11)
[2019-03-17] MEDS: cefTRIAXone 1 GM in D5W 55 ML IVPB SCH (12:47)
[2019-03-17 13:31] LABS: APPEARANCE,URINE CLEAR; BILIRUBIN, URINE NEGATIVE (NEGATIVE); COLOR,URINE PALE YELLOW; GLUCOSE, URINE (UA) NEGATIVE (NEGATIVE); KETONES,URINE NEGATIVE (NEGATIVE); LEUKOCYTE ESTERASE ,URINE 1+ (NEGATIVE); NITRITE,URINE NEGATIVE (NEGATIVE); PH,URINE 7 (4.5-8.0); PROTEIN,URINE NEGATIVE (NEGATIVE); UROBILINOGEN,URINE NORMAL MG/DL (0.0-1.0)
--- NOTE | 2019-03-17 14:06 | NUR ---
*-* NO INSURANCE INFORMATION IN THE BAR UNABLE TO SEND CLINICALS OR REVIEWS *-*
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
--- NOTE | 2019-03-17 17:01 | Cardiology Report ---
APPROVED REPORT EKG Measurement Heart [id number] ID [id number] Normal sinus rhythm Prolonged QT Abnormal ECG
--- NOTE | 2019-03-17 17:10 | Cardiology Report ---
APPROVED REPORT EKG Measurement Heart [id number] Normal sinus rhythm Cannot rule out Anterior infarct, age undetermined Abnormal ECG
--- NOTE | 2019-03-17 19:10 | NUR ---
NURSE NOTES: Received report from EMILY Wong, patient in stable condition, AOx4, able to make needs known, c/o pain, IV site left hand 22g, asymptomatic, intact, patent, bed lowest position, brakes on , call light within reach, will continue to monitor and reassess.
--- NOTE | 2019-03-17 20:04 | NUR ---
HAND-OFF: Report given to EMILY Moreno.
[2019-03-17] MEDS: Cyclobenzaprine 10mg Tab ORAL PRN (20:14)
[2019-03-18] VITALS: BP 118/64
[2019-03-18] MEDS: traMADol 50mg tab ORAL PRN ×4 (00:08→18:09)
[2019-03-18 04:00] VITALS: BP 122/67
--- NOTE | 2019-03-18 05:31 | NUR ---
NURSE NOTES: Left a message for Dr. Rogers regarding VRE rectum positive result for patient. Awaiting callback.
[2019-03-18] MEDS: Heparin 5000 units/ml inj SUBQ SCH ×3 (06:29→21:03)
[2019-03-18] MEDS: Levothyroxine 125mcg tab ORAL SCH (06:33)
--- NOTE | 2019-03-18 07:30 | NUR ---
NURSE NOTES: Report received from EMILY Moreno. Patient sleeping comfortably. Asked not to be disturbed. No pain or SOB at this time. Bed on lowest position, side rails upx2, call light within easy reach.
--- NOTE | 2019-03-18 07:30 | NUR ---
HAND-OFF: Report given to EMILY Shultz, patient in stable condition, plan of care endorsed..
[2019-03-18 08:00] VITALS: BP 123/62
--- NOTE | 2019-03-18 09:10 | NUR ---
NURSE NOTES: Pt informed she had lost her lower dentures in the hospital. MARK Rai confirmed been aware of the issue.
[2019-03-18] MEDS: Sucralfate 1gm tab ORAL SCH ×4 (09:20→21:04)
[2019-03-18] MEDS: Vitamin B-12 500mcg tab ORAL SCH (09:20)
[2019-03-18] MEDS: ALPRAZolam 0.5mg tab ORAL SCH ×3 (09:20→18:09)
[2019-03-18] MEDS: Dicyclomine 10mg Cap ORAL SCH ×3 (09:20→18:09)
[2019-03-18] MEDS: cefTRIAXone 1 GM in D5W 55 ML IVPB SCH (09:21)
[2019-03-18 12:00] VITALS: BP 112/68
--- NOTE | 2019-03-18 13:15 | NUR ---
PT NOTE Received MD order for PT evaluation. Attempted x2 to see patient for PT evaluation. Patient declined on both attempts to participate with PT evaluation. Patient c/o abdominal pain and dizziness. Carrington DIAZ notified, will follow up tomorrow.
--- NOTE | 2019-03-18 14:33 | NUR ---
DISCHARGE PLANNING PATIENT WAS REFERRED TO [facility] RECEIVED CALL FROM [facility] STATING THEY WILL BE ABLE TO ACCEPT PATIENT TOMORROW
[2019-03-18 16:00] VITALS: BP 106/63
--- NOTE | 2019-03-18 16:06 | NUR ---
HOMELESS COORDINATOR HC spoke with patient and patient is alert and oriented. Patient does not have a contact number. Patient states he is chronically homeless and does want resources for correction. Patient states she has been homeless for 3 weeks. Patient states her homelessness was due to her daughters section 8 voucher not allowing people to stay with her. Patient has product promoter sales person Juni [phone]. patient receives $800 in SSI, Patient states she doesnt have any substance abuse problems. Patient states she does have mental health issues, bipolar and is taking medicine for health reasons and seizures. Patient states she is see and doesn't need a follow up appointment. Patient will be discharged to [facility] tomorrow. Patient continues to require medical intervention. Will continue to monitor and assist as needed.
--- NOTE | 2019-03-18 19:29 | NUR ---
HAND-OFF: Report given to EMILY Mclaughlin. Patient sitting at bedside. No complaint of pain or SOB.
--- NOTE | 2019-03-18 19:46 | NUR ---
NURSE NOTES: RECEIVED PATIENT RESTING IN BED, NO COMPLAINTS OF PAIN AT THIS TIME. FALL AND SEIZURE PRECAUTIONS IN PLACE: CALL LIGHT AND BEDSIDE TABLE WITHIN REACH, BED IN LOW POSITION AND SIDE RAILS PADDED. PLAN OF CARE REVIEWED.
[2019-03-18 20:00] VITALS: BP 142/78
[2019-03-18] MEDS: Cyclobenzaprine 10mg Tab ORAL PRN (21:05)
--- NOTE | 2019-03-18 23:30 | Internal Med Progress Note ---
Subjective Date of Service: Mar 18, 2019 Physician Name Giovanny Rogers Attending Physician Giovanny Rogers MD Current Medications Medications (Trade) Dose Ordered Sig/Donald Route PRN Reason Start Time Stop Time Status Last Admin Dose Admin Alprazolam (Xanax) 0.5 mg THREE TIMES A DAY ORAL 03/17/19 13:00 03/24/19 12:59 03/18/19 18:09 Amlodipine Besylate (Norvasc) 10 mg DAILY ORAL 03/16/19 13:00 04/15/19 12:59 03/18/19 09:21 Atenolol (Tenormin) 50 mg DAILY ORAL 03/17/19 09:00 04/16/19 08:59 03/18/19 09:21 Ceftriaxone Sodium 1 gm/ Dextrose 55 ml @ 110 mls/hr DAILY IVPB 03/17/19 13:00 03/24/19 12:59 03/18/19 09:21 Cyanocobalamin (Vitamin B-12) 1,000 mcg DAILY ORAL 03/17/19 09:00 04/16/19 08:59 03/18/19 09:20 Cyclobenzaprine HCl (Flexeril) 10 mg TIDPRN PRN ORAL Muscle Spasm 03/17/19 11:35 04/16/19 11:34 03/18/19 21:05 Dicyclomine HCl (Bentyl) 20 mg TID ORAL 03/16/19 14:00 04/15/19 13:59 03/18/19 18:09 Diphenhydramine HCl (Benadryl) 25 mg Q4H PRN ORAL Itching 03/17/19 11:35 04/16/19 11:34 03/18/19 21:47 Folic Acid (Folate) 1 mg DAILY ORAL 03/17/19 09:00 04/16/19 08:59 03/18/19 09:21 Heparin Sodium (Porcine) (Heparin 5000 units/ml) 5,000 units EVERY 8 HOURS SUBQ 03/16/19 14:00 04/15/19 13:59 03/18/19 21:03 Levetiracetam (Keppra) 750 mg Q12HR ORAL 03/16/19 21:00 04/15/19 20:59 03/18/19 21:04 Levothyroxine Sodium (Synthroid) 125 mcg DAILY@0630 ORAL 03/17/19 06:30 04/16/19 06:29 03/18/19 06:33 Multivitamins (Multivitamins) 1 tab DAILY ORAL 03/17/19 09:00 04/16/19 08:59 03/18/19 09:20 Ondansetron HCl (Zofran) 4 mg Q4H PRN IVP Nausea & Vomiting 03/16/19 13:00 04/15/19 12:59 03/16/19 14:10 Pantoprazole (Protonix) 40 mg DAILY ORAL 03/17/19 09:00 04/16/19 08:59 03/18/19 09:20 Sucralfate (Carafate) 1 gm FOUR TIMES A DAY ORAL 03/16/19 13:00 04/15/19 12:59 03/18/19 21:04 Tramadol HCl (Ultram) 50 mg Q4H PRN ORAL For Pain 03/17/19 11:45 03/23/19 11:44 03/18/19 18:09 Allergies: Coded Allergies: MORPHINE (Verified Allergy, Unknown, 07/31/17) Per patient statement, she is allergic to morphine. Constitutional: Reports: weakness HEENT: Reports: no symptoms Cardiovascular: Reports: no symptoms Respiratory: Reports: no symptoms Gastrointestinal/Abdominal: Reports: abdominal pain Genitourinary: Reports: no symptoms Neurologic/Psychiatric: Reports: other - dizziness All Systems: reviewed and negative except above Subjective reports losing lower denture in hospital didnot participate in PT today ok to go to [facility] tomorrow Objective Last Vital Signs Date Time Temp Pulse Resp B/P (MAP) Pulse Ox O2 Delivery O2 Flow Rate FiO2 03/18/19 20:00 69 03/18/19 20:00 97.5 19 142/78 (99) 98 03/18/19 09:00 Room Air General Appearance: no apparent distress EENT: PERRL/EOMI Neck: non-tender, supple Cardiovascular: normal rate, no gallop/murmur, no JVD Respiratory/Chest: lungs clear, normal breath sounds Abdomen: normal bowel sounds, non tender, soft Extremities: normal range of motion, non-tender Neurologic: oriented x 3, responsive Skin: warm/dry Microbiology Date/Time Source Procedure Growth Status 03/16/19 10:10 Nasal Nares MRSA Culture - Final NO METHICILLIN RESISTANT STAPH AUREUS... Complete 03/16/19 09:35 Urine,Clean Catch Urine Culture - Preliminary NO GROWTH AFTER 24 HOURS Resulted 03/16/19 10:10 Rectum VRE Culture - Final Enterococcus Faecium - Vre Complete 03/16/19 10:10 Rectum Received Intake and Output 03/17/19 03/18/19 18:59 06:59 Intake Total 320 ml Balance 320 ml Intake Oral 120 ml IV Total 200 ml # Voids 2 1 Assessment/Plan Status: stable, progressing, tolerating diet Assessment/Plan 1. Acute encephalopathy, possible seizure versus withdrawal symptoms from lack of medications. 2. History of hypertension. 3. Hypothyroidism. 4. Gastroesophageal reflux disease. 5. History of peptic ulcer disease. 6. History of gastric bypass surgery. 7. Medication noncompliance. 8. History of opiate abuse and dependency. 9. History of bipolar disorder. 10. Depression. 11. homelessness 12. transient accelerated HTN and tachycardia like benzo withdrawal PLAN: 1. telemetry. 2. IV hydration. 3. EEG. 4.urinalysis. 5. PPI. 6.continue home medication. 7. TSH low with normal free T4 8. Xanax 0.5 mg po tid 9. Seizure precaution. 10. DVT and gastrointestinal prophylaxes. 11. Further recommendations will follow pending the patient's response to above measures. 12. Code status, Full Code. 13. d/w social work instructor ok to go [facility] tomorrow. 14. atenolol for BP and HR control over 35 in spent today Giovanny Barbosa MD [phone] Giovanny Rogers MD Mar 18, 2019 23:30
[2019-03-19] VITALS: BP 131/68
[2019-03-19] MEDS: traMADol 50mg tab ORAL PRN ×2 (00:06→11:51)
[2019-03-19 04:00] VITALS: BP 131/80
[2019-03-19] MEDS: Heparin 5000 units/ml inj SUBQ SCH ×2 (06:00→14:00)
[2019-03-19] MEDS: Levothyroxine 125mcg tab ORAL SCH (06:23)
--- NOTE | 2019-03-19 07:21 | NUR ---
HAND-OFF: Report given to Milan TRIPLETT RN. PATIENT RESTING IN BED, NO SIGNS OF DISTRESS NOTED.
--- NOTE | 2019-03-19 07:21 | NUR ---
NURSE NOTES: Report received from EMILY Mclaughlin. Pt. sleeping comfortably. No breathing distress noted. Bed on lowest position, side rails upx2, brakes engaged. Call light within easy reach.
[2019-03-19 08:00] VITALS: BP 138/79
[2019-03-19] MEDS: Vitamin B-12 500mcg tab ORAL SCH (08:56)
[2019-03-19] MEDS: Sucralfate 1gm tab ORAL SCH ×2 (08:57→13:57)
[2019-03-19] MEDS: ALPRAZolam 0.5mg tab ORAL SCH ×2 (08:57→13:58)
[2019-03-19] MEDS: Dicyclomine 10mg Cap ORAL SCH ×2 (08:57→13:58)
[2019-03-19] MEDS: cefTRIAXone 1 GM in D5W 55 ML IVPB SCH (08:58)
--- NOTE | 2019-03-19 09:20 | NUR ---
PT EVALUATION NOTE Patient seen for initial evaluation, see complete evaluation for details. Patient presents with impaired balance and pain which affects patient's ability to perform mobility tasks. Patient will benefit from skilled inpatient PT intervention to address balance, safety and functional mobility. Recommend discharge to SNF for further rehab to address balance, safety and functional mobility once medically cleared by MD. No DME recommendations at this time. Addendum: 03/19/19 at 1300 by SHIV BLULOCK PT Amended: Links added.
--- NOTE | 2019-03-19 09:36 | NUR ---
DISCHARGE PLANNING BED HAS BEEN CONFIRMED AT [facility] FOR THIS PATIENT MESSAGE LEFT FOR DR MORIN AWAIT DISCHARGE ORDER
--- NOTE | 2019-03-19 11:47 | NUR ---
DISCHARGE PLANNED DISCHARGE TO [facility] ROOM [address] SKILLED T: [phone] FOR NURSE TO NURSE REPORT [facility] HAS BEEN SET UP FOR 1300 PATIENT TRANSPORT ORDERLY TRANSFER FORM COMPLETED
[2019-03-19 12:00] VITALS: BP 118/79
[2019-03-19] MEDS: Cyclobenzaprine 10mg Tab ORAL PRN (13:57)
[2019-03-19] MEDS ORDERED: FOLIC ACID1 MG ORAL (14:34)
[2019-03-19] MEDS ORDERED: AMLODIPINE BESY10 MG ORAL (14:34)
[2019-03-19] MEDS ORDERED: LEVETIRACETAM500 MG ORAL (14:35)
[2019-03-19] MEDS ORDERED: MULTIVITAMINS1 EA14 PO (14:35)
[2019-03-19] MEDS ORDERED: VITAMIN B-12500 MCG ORAL (14:36)
[2019-03-19] MEDS ORDERED: DICYCLOMINE HCL10 MG ORAL (14:37)
[2019-03-19] MEDS ORDERED: TENORMIN50 MG ORAL (14:37)
[2019-03-19] MEDS ORDERED: ZOFRAN4 M3 ORAL (14:39)
[2019-03-19] MEDS ORDERED: XANAX0.5 MG ORAL (14:39)
[2019-03-19] MEDS ORDERED: CYCLOBENZAPRINE10 MG ORAL (14:40)
[2019-03-19] MEDS ORDERED: DIPHENHYDRAMINE25 M1 ORAL (14:40)
[2019-03-19] MEDS ORDERED: TRAMADOL HCL50 MG ORAL (14:41)
--- NOTE | 2019-03-19 16:10 | NUR ---
Discharge Note: VS stable. Pain medication given. Pain assessment done. 12/09 at this time. Medications to continue communicated. Teaching materials printed and given to Pt. Report given to SNF Nurse Humera at 1410 and [facility] ambulance personnel at 1615. Patient's belongings checked with Pt. signed and filed. incident regarding lower dentures had been communicated with MARK Pineda and René, Nursing Sup. Nursing Sup communicated with Pt. IV removed, intact. bus monitor removed. ID band removed. Left floor safely accompanied by ambulance personnel.
--- NOTE | 2019-03-21 15:33 | Discharge Summary ---
Discharge Summary Discharge Summary _ DATE OF ADMISSION: 03/16/2019 DATE OF DISCHARGE: 03/19/2019 DISCHARGED BY: Dr Rogers REASON FOR ADMISSION: 63 years old female with past medical history of gastric bypass, hypothyroidism , hypertension, seizure disorder, noncompliance with medication, bipolar disorder, depression, presented to emergency department with altered mental status. Patient appeared to be drowsy and was only able to respond to simple questions. At baseline her mental status stable. Laboratory work-up revealed no leukocytosis, stable hemoglobin and hematocrit. Urine toxicology screen was negative. Serum salicylate , acetaminophen and alcohol levels were all negative. Chemistry was stable. Troponin negative. EKG revealed sinus rhythm, no acute ischemic changes. Urinalysis demonstrated pyuria , few bacteria and yeast. CT of the head revealed no acute intracranial bleeding or mass-effect. Mild age -related volume loss was noted. Chest x-ray demonstrated no acute cardiopulmonary pathology. Neurological exam appeared to be stable, but patient noted to be very drowsy and difficult to keep up and unable to perform gait testing due to persistent sleepiness. Patient subsequently admitted to medical surgical floor for further management. Ammonia level stable. Patient apparently left four days ago AGAINST MEDICAL ADVICE after being admitted. Patient subsequently was admitted for further management. HOSPITAL COURSE: Patient admitted to telemetry floor. Patient started on the IV hydration. EEG was abnormal, consistent with diffuse encephalopathy. Home medication resumed. Seizure precaution maintained. Patient started on Keppra. No evidence of seizure activity while in the hospital. Outpatient Xanax and other pain medication with initially hold. DVT and GI prophylaxis provided. TSH low with normal free T4. Synthroid dose optimized. Bowel regimen instituted. Blood pressure was managed with beta-ivan. Pain management was addressed judiciously. Patient was working with physical therapist. Fall precaution maintained. night worker met with patient to assess for homelessness. Patient was homeless for 2 weeks. Patient was living with her daughter at [address] 8 apartment, however she was left after the daughter received a notice that only those who listed on the voucher, can stay in the apartment. Patient denied use of illicit street drugs. Patient reported mental diagnoses of schizophrenia and bipolar disorder. Placement was found and secured at the alf facility. Patient clinically stabilized and was ready for transfer to alf facility for continuation of care. FINAL DIAGNOSES: Acute encephalopathy , possible seizure versus withdrawal symptoms from lack of medication Transient accelerated hypertension and tachycardia, likely benzodiazepine withdrawal Hypothyroidism GERD History of gastric bypass surgery Peptic ulcer disease Medication noncompliance History of opiate abuse and dependency History of bipolar disorder Depression Homelessness DISCHARGE MEDICATIONS: See Medication Reconciliation list. DISCHARGE INSTRUCTIONS: Patient was discharged to the alf facility. Follow up with medical doctor at the facility. I have been assigned to dictate discharge summary for this account. I was not involved in the patient's management. Daisy Mace NP Mar 21, 2019 15:33
== END 2019-03-19 16:20 | DRG 71 ==
LOC: EDBD 07:48 → EMR 08:30 → OBSVTOIN 10:10 → 2E 10:10 → INTOOBSV 10:10 → EDBEDREQ 10:55 → 2E 11:24 → INTOOBSV 03-17 11:36 → OBSVTOIN 03-17 11:36
DX: G93.49 Other encephalopathy (principal); N39.0 Urinary tract infection, site not specified; F13.239 Sedative, hypnotic or anxiolytic dependence with withdrawal, unspecified; R56.9 Unspecified convulsions; Z87.891 Personal history of nicotine dependence; E03.9 Hypothyroidism, unspecified; K21.9 Gastro-esophageal reflux disease without esophagitis; Z98.84 Bariatric surgery status; Z91.14 Patient's other noncompliance with medication regimen; F11.11 Opioid abuse, in remission; F31.9 Bipolar disorder, unspecified; F20.9 Schizophrenia, unspecified; Z59.0 Homelessness; K27.9 Peptic ulcer, site unspecified, unspecified as acute or chronic, without hemorrhage or perforation; Z88.6 Allergy status to analgesic agent; R00.0 Tachycardia, unspecified; I10 Essential (primary) hypertension
CPT/HCPCS: 36415; 70450; 71045; 80053; 80299; 80307; 80329; 81003; 82140; 82550; 83735; 84100; 84439; 84443; 84481; 84484; 85007; 85025; 87081; 87086; 93005; 95819; 96360; 96361; 96365; 96372; 96374; 96376; 99285; J2405